=== PATIENT | female | born 1975 | race Caucasian/White ===

== ENCOUNTER → 2016-07-16 | Outpatient (CLI) | payer MEDICARE, OTHER ==
--- NOTE | 2016-07-16 10:40 | CT ---
EXAMINATION TYPE: CT sinus wo con DATE OF EXAM: 07/16/2016 10:29 AM COMPARISON: NONE HISTORY: Chronic sinusitis per order. Symptoms of headaches with right-sided facial numbness and dizz iness per patient. CT DLP: 714.4 mGycm. Automated Exposure Control for Dose Reduction was Utilized. TECHNIQUE: CT scan of the sinuses is performed without contrast, axial images are obtained, coronal r eformatted images are also reviewed. FINDINGS: Near complete opacification of right maxillary sinus is seen with frothy opacity superiorly noted. More suspicious masslike appearance inferiorly and medially is seen with some erosive change involving the inferior wall into the maxilla identified on coronal image 32. Lack of dentition of rig ht molar teeth at this level is identified. There is bulging into the right ostiomeatal complex noted . Hounsfield units average between 20 and 30 as area is fairly homogeneous. The left maxillary, bilat eral frontal, and bilateral sphenoid sinuses show no suspicious opacification. Mild to minimal mucosa l thickening posterior left ethmoid sinus on axial image 28 is noted. Left-sided ostiomeatal complex is patent. Please refer to same day CT IAC report for complete details of more posterior structures. Visualized globes are intact bilaterally. Early Hyperostosis frontalis is seen. IMPRESSION: Right maxillary sinus disease with erosive change or bony destruction into right maxilla cannot rule out infectious process or neoplasm at this level. Further workup with direct visualizati on advised.
--- NOTE | 2016-07-16 10:53 | CT ---
EXAMINATION TYPE: CT iac wo con DATE OF EXAM: 07/16/2016 10:28 AM COMPARISON: NONE HISTORY: Rt hearing loss, mastoiditis, and cholesteatoma per order. Additional symptoms of headache, fainting spells, right-sided facial numbness, and dizziness per patient. CT DLP: 150 mGycm. Automated Exposure Control for Dose Reduction was Utilized. TECHNIQUE: CT scan of internal auditory canal is performed without contrast, thin cut axial images ar e obtained, coronal reformatted images are also reviewed. FINDINGS: The external auditory canals are patent bilaterally. There is prominent curvilinear opacifi cation at level of the tympanic membrane likely reflecting cerumen, correlation with direct visualiz ation is advised. Mastoid air cells show opacification seen diffusely but most prominent inferiorly. No suspicious opa cification on the left is present. There is no evidence of suspicious surrounding soft tissue density to suggest cholesteatoma. The scu glenys is preserved bilaterally. The cochlea and the semicircular canals are symmetric and unremarkable. Vestibular aqueduct and inte rnal carotid canal appear unremarkable. Temporomandibular joints show some flattening of mandibular condyle bilaterally, left greater than ri ght. Visualized portion brain parenchyma is felt within normal limits. Please see same day CT sinus report for complete details on paranasal sinuses. IMPRESSION: Right-sided mastoiditis and probable cerumen, no middle ear infection or CT evidence for cholesteatoma.
== END | disposition home or self-care (01) ==
LOC: RADCTMAIN 09:48
PROVIDERS: ATTEND Otolaryngology
DX: J32.0 Chronic maxillary sinusitis (principal); H70.91 Unspecified mastoiditis, right ear; H91.91 Unspecified hearing loss, right ear
CPT/HCPCS: 70480; 70486

== ENCOUNTER 2016-08-23 06:49 | Day surgery (SDC) | payer MEDICARE, OTHER ==
[2016-08-20 11:57] VITALS: BMI 32.0
[~2016-08-23 06:49] MED LIST: ACETAMINOPHEN TAB 500 MG TAB PO ONE; DEXAMETHASONE SOD PHOSPHATE 10 MG/ML 1 ML VIAL IV ONE; DEXAMETHASONE SOD PHOSPHATE 4 MG/ML 1 ML VIAL IV ONE; FAMOTIDINE 20 MG/2 ML VIAL IV ONE; HYDROmorphone 1 MG/ML 1 ML SYRINGE IVP PRN; LACTATED RINGERS 1,000 ML IV SCH; ONDANSETRON 4 MG/2 ML VIAL IVP ONE; OXYMETAZOLINE 0.05% NASL SPRAY 15 ML ONE; ceFAZolin 2 GM in SODIUM CHLORIDE 0.9% 100 ML IVPB ONE
[2016-08-23 07:28] VITALS: TEMP 97.8
[2016-08-23] MEDS ORDERED: OXYMETAZOLINE 0.05% NASL SPRAY 15 ML NASAL ONE ×4 (07:30→07:40)
[2016-08-23 07:38] LABS: Glucose,Whole Blood 91 mg/dL (75-99)
[2016-08-23] MEDS ORDERED: LIDOCAINE 1% 20 ML VIAL (10MG/ML) FOR IV START SQ ONE (07:38)
[2016-08-23] MEDS ORDERED: fentaNYL (PF) 50 MCG/ML 2 ML AMP ONE (08:58)
[2016-08-23] MEDS ORDERED: SUCCINYLCHOLINE CHLORIDE 100 MG/5 ML SYR IV ONE (08:58)
[2016-08-23] MEDS ORDERED: LIDOCAINE 1% INJ 10MG/ML (20 ML MDV) ONE (08:58)
[2016-08-23] MEDS ORDERED: PROPOFOL 10 MG/ML 20 ML VIAL IV ONE (08:58)
[2016-08-23] MEDS ORDERED: DEXAMETHASONE SOD PHOS (MDV) 100 MG/10 ML VIAL ONE (08:58)
[2016-08-23] MEDS ORDERED: MIDAZOLAM 2 MG/2 ML VIAL ONE (08:58)
[2016-08-23] MEDS ORDERED: CIPROFLOXACIN-DEXAMETH 0.3-0.1% DROPS 7.5 ML BTL RIGHT EAR ONE (09:25)
[2016-08-23] MEDS ORDERED: LIDOCAINE 1%-EPI 1:100,000 20 ML VIAL SUBMUCOSAL ONE ×2 (09:31)
[2016-08-23] MEDS ORDERED: FLUORESCEIN STRIPS 1 MG STRIP MISCELLANE ONE (09:32)
[2016-08-23] MEDS ORDERED: BUPIVACAIN-EPI 0.5%-1:200,000 30 ML VIAL SQ ONE ×2 (09:32)
[2016-08-23] MEDS ORDERED: EPINEPHrine 1 MG/ML (MDV) 30 ML VIAL TOPICAL ONE (09:32)
[2016-08-23] MEDS ORDERED: BACITRACIN 500 UNIT/GM OINT 28.4 GM TUBE TOPICAL ONE (10:03)
--- NOTE | 2016-08-23 10:32 | P.OP ---
Date of Procedure: 08/23/16 Preoperative Diagnosis: Deviated nasal septum Hypertrophy of the nasal turbinates, inferior, bilaterally Chronic sinusitis with a right maxillary and intranasal mass with eustachian tube dysfunction Chronic suppurative otitis media right ear Right tympanogram and perforation, spontaneous Postoperative Diagnosis: same Procedure(s) Performed: Bilateral functional endoscopic sinus surgery of bilateral maxillary and ethmoid sinuses i.e. a total ethmoidectomy with removal of a right maxillary sinus and intranasal mass with frozen section Right direct microscopic tympanostomy tube placement Right myringoplasty utilizing a bio design graft Implants: Anesthesia: GETA Surgeon: Mansoor Gil Estimated Blood Loss (ml): 5 Pathology: other (Sinonasal and frozen section was performed on a polypoid mass intranasally on the right side) Condition: stable Disposition: PACU Indications for Procedure: This patient is a 40-year-old white female who has had chronic sinus problems bilaterally for very long period of time she complains of bilateral nasal congestion discolored drainage anosmia etc. her right side seems to be much worse. We did a CAT scan showing a mass of the right maxillary sinus and intranasally noted with bony erosion. The patient also had a chronic separate of otitis media on the right with chronic infection and mastoid involvement. Tympanostomy tube placement along with functional endoscopic sinus surgery is recommended the patient was also found have a severe left septal deviation with near 100% occlusion. The patient also had large inferior turbinates there were obstructive. All risks, benefits, and alternative therapies were discussed in detail. Consent was obtained and all questions were answered. Operative Findings: Patient was found to have a very thickened right tympanic membrane. There was erosion through the posterior portion of the tympanic membrane with a spontaneous perforation seen in yellow purulence draining from that area. Patient also had chronic sinusitis bilaterally with inflammatory changes along the ostomy complexes on the left and right. On the right there was a large mass from the maxillary sinus eroding through the maxillary sinus wall intranasally. The mass on the right side was impinging on the right eustachian tube precipitating the eustachian tube dysfunction causing the ear disease. Description of Procedure: This patient was taken to the operative room and placed in the supine position. A general inhalation anesthetic was administered to the patient by mask and subsequently intubated with a cuffed endotracheal tube by the department of anesthesia. The patient had a functioning IV line in place. Attention was paid to the right ear where the ear was visualized with a variable focal length Zeiss microscope. We suctioned the purulence from the right ear canal and examine the right ear under magnification. There was a spontaneous perforation noted posteriorly. The drum was thickened and extremely erythematous. A tympanostomy incision was made inferiorly and an ultraseal tube was placed and the purulence was suctioned. The perforation was prepped with a house pick the edges were roughened and a bio design graft was placed over the perforation. Myringoplasty was completed and a right tube was placed. Ofloxacin drops were instilled. Cottonball was placed on the outer ear canal. Attention was then paid to the nose where the septum lateral nasal wall sphenopalatine teen ganglion were injected with lidocaine 1% with epinephrine 1 100,000. Approximately 10 minutes were allowed wait for full vasoconstrictive effects to take place. A caudal incision was made over the caudal portion of the left septum down to the mucoperichondrium. A mucoperichondrial flap was developed to the extent of visualization on the left and a crossover incision was made with for the mucoperichondrial flap development to the extent of visualization on the contralateral side. The septum was visualized and redundant septum was removed. With a trapdoor type of movement the septum was straightened and placed back in the midline. We removed a large amount of redundant cartilage causing a large septal spur along the floor on the left side. We suture fixated the septum to the vomerian groove and placed it back in the midline. The incision was closed with 4-0 Vicryl in a running stitch was used to reapproximate the septal flaps with use of a 40 rapid Vicryl. The patient was found have large obstructive inferior turbinates. We entered the anterior portion of the inferior turbinates with use of a microdebrider utilizing a 2 mm blade. We did a submucosal resection removing bone and submucosal elements from the inferior turbinates bilaterally. Once this submucosal resection was performed we took a Kerlinkes nasal elevator and outfractured the inferior turbinates bilaterally. Excellent airway was obtained. Attention was then paid intranasally to the nose was a polypoid-type mass noted on the right side which was removed and sent for frozen section. The sinus surgery was performed with use of 0 and 30 H[employer] endoscopes. This came back as inflammatory respiratory tissue representing a polyp. Once we confirmed that this mass was benign we evaluated both ostomy complexes and found inflammatory changes on both with discolored drainage on both. We took down the uncinate process bilaterally and opened up both maxillary sinuses. We remove diseased tissue from both maxillary sinuses. The right maxillary sinus had a large inflammatory polyp-type cyst removed and the sinus diseased tissue was removed bilaterally from both maxillary sinuses. We then evaluated the ethmoids and the ethmoid bulla was were inflamed. We then did a total ethmoidectomy removing all the ethmoid septations from the fovea frontalis through the basal lamella into the posterior ethmoid air cells. After a total ethmoidectomy was performed with removal of all septations we evaluated the sphenoid and frontal sinus region and did not find any pathology in that area and we did not proceed further with any frontal or sphenoid work. We did insert xerogel underneath the middle turbinates and we did insert to a centimeter Merocel sponge packs which are to be removed tomorrow by the patient by pulling on the string. Instructions on removal will be given in recovery. The patient tolerated this procedure well and a follow-up is scheduled for next week. The patient is to contact me if any problems should arise in the interim.
[2016-08-23 11:13] LABS: Glucose,Whole Blood 129 mg/dL (75-99)
[2016-08-23 11:42] VITALS: RESP 18
[2016-08-23] MEDS ORDERED: HYDROcodone/APAP 5-325MG 1 EACH TAB PO ONE (12:01)
[2016-08-23 12:25] VITALS: BP 126/73; PULSE 84
== END 2016-08-23 12:44 | disposition home or self-care (01) ==
LOC: OR 06:49
PROVIDERS: ATTEND Otolaryngology
DX: J34.2 Deviated nasal septum (principal); J34.3 Hypertrophy of nasal turbinates; H72.91 Unspecified perforation of tympanic membrane, right ear; J32.9 Chronic sinusitis, unspecified; J34.9 Unspecified disorder of nose and nasal sinuses; H69.81 Other specified disorders of Eustachian tube, right ear; H66.3X1 Other chronic suppurative otitis media, right ear; I10 Essential (primary) hypertension; J45.909 Unspecified asthma, uncomplicated; F32.9 Major depressive disorder, single episode, unspecified; Z79.1 Long term (current) use of non-steroidal anti-inflammatories (NSAID); Z79.891 Long term (current) use of opiate analgesic; Z79.52 Long term (current) use of systemic steroids; Z79.899 Other long term (current) drug therapy; Z88.8 Allergy status to other drugs, medicaments and biological substances; Z91.09 Other allergy status, other than to drugs and biological substances
CPT/HCPCS: 88305; 88331; 88300; 69436; 30520; 30140; 31267; 31255; C1763; J0171; J2250; J1100 ×2; J0690; J2405; J2001; J3010; J0330; J2704

== ENCOUNTER → 2016-08-30 | Outpatient (CLI) | payer MEDICARE, OTHER ==
--- NOTE | 2016-08-31 00:09 | MR ---
EXAMINATION TYPE: MR lumbar spine wo con DATE OF EXAM: 08/30/2016 COMPARISON: NONE HISTORY: Low Back Pain TECHNIQUE: Multiplanar, multisequence images of the lumbar spine were acquired. There is almost 1 cm anterior subluxation of L4 in relation to L5. There is bilateral L4 spondylolysi s. There is narrowing at L4-5 disc space. The other disc spaces are fairly normal. There is increased signal in the T12 vertebral body on the left side consistent with hemangioma. There is no paraspinal mass. There is no spinal stenosis. There is developmentally adequate spinal canal. Sacroiliac joints appear normal. 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 No spinal stenosis. No lumbar disc yael iation.
== END | disposition home or self-care (01) ==
LOC: RADMRIMAIN 15:58
PROVIDERS: ATTEND Psychiatry & Neurology Neurology
DX: M43.16 Spondylolisthesis, lumbar region (principal); M47.816 Spondylosis without myelopathy or radiculopathy, lumbar region; Z88.8 Allergy status to other drugs, medicaments and biological substances
CPT/HCPCS: 72148

== ENCOUNTER 2017-07-31 10:12 | Emergency (ER) | payer MEDICARE, OTHER ==
[2017-07-31] MEDS ORDERED: diphenhydrAMINE 50 MG/ML 1 ML VIAL IVP STA (10:36)
[2017-07-31] MEDS ORDERED: methylPREDNISolone SOD SUCCI 125 MG/2 ML VIAL IV STA (10:36)
[2017-07-31] MEDS ORDERED: SODIUM CHLORIDE 0.9% 500 ML IV ONE (10:36)
--- NOTE | 2017-07-31 10:40 | ED ---
General Adult HPI - General Chief complaint: Recheck/Abnormal Lab/Rx Stated complaint: allergic rxn, EPS eval Time Seen by Provider: 07/31/17 10:30 Source: patient, RN notes reviewed Mode of arrival: ambulatory - History of Present Illness Initial comments: This is a 41-year-old female who states she had 2 of her medications increased and since then she has had terrible itching all over. Patient states she had no difficulty breathing or throat swelling. Patient states her legs arms chest back and face are itching and she can't stop scratching it. Patient states this happened before when her medications were increased. Patient is not taking any medications at this time for the itching. Patient denies any fever chills or cough. Patient denies headache patient denies numbness weakness. Patient denies chest pain palpitations difficulty breathing or shortness of breath. Patient denies any abdominal pain. - Related Data Home Medications Medication Instructions Recorded Confirmed lamoTRIgine [LaMICtal] 200 mg PO HS 07/31/17 07/31/17 traZODone HCL [Desyrel] 200 mg PO HS 07/31/17 07/31/17 Allergies Allergy/AdvReac Type Severity Reaction Status Date / Time aripiprazole [From Abilify] Allergy Swelling Verified 07/31/17 10:38 paroxetine HCl [From Paxil] Allergy Rash/Hives Verified 07/31/17 10:38 ziprasidone [From Geodon] Allergy Swelling Verified 07/31/17 10:38 Review of Systems ROS Statement: Those systems with pertinent positive or pertinent negative responses have been documented in the HPI. ROS Other: All systems not noted in ROS Statement are negative. Past Medical History Past Medical History: Asthma, Diabetes Mellitus, Deep Vein Thrombosis (DVT), GERD/Reflux, Hearing Disorder / Deafness, Hyperlipidemia, Hypertension, Osteoarthritis (OA), Seizure Disorder, Sleep Apnea/CPAP/BIPAP Additional Past Medical History / Comment(s): SEIZURES CHILD, NONE SINCE AGE 15. NO TX FOR DM IN PAST 2-3 YEARS, SINCE WGT LOSS. BORDERLINE HTN, NO RX YET. HX LT ARM DVT X2, WAS ON BCP. "SEEM TO BLEED LONGER NOW." CTS IN MAGDA HANDS, WRISTS; TENDINITIS ARMS/LEGS; NT ARMS/LEGS. DECR HEARING RT EAR. USES CPAP. History of Any Multi-Drug Resistant Organisms: None Reported Past Surgical History: Bladder Surgery, Ear Surgery, Hysterectomy, Orthopedic Surgery Additional Past Surgical History / Comment(s): RT KNEE SURG. BLADDER SLING. BMT. CLEFT PALATE SURGERY. BB REMOVED FROM HEAD. Past Anesthesia/Blood Transfusion Reactions: Family History of Problems w/ Anesthesia, Motion Sickness Additional Past Anesthesia/Blood Transfusion Reaction / Comment(s): SISTERS HAVE PONV. Past Psychological History: Anxiety, Bipolar Smoking Status: Never smoker Past Alcohol Use History: None Reported Past Drug Use History: None Reported - Past Family History Mother Family Medical History: Cancer, Deep Vein Thrombosis (DVT), Pulmonary Embolus Father Family Medical History: Deep Vein Thrombosis (DVT), Pulmonary Embolus Additional Family Medical History / Comment(s): RONNIE GERIGHS DISEASE. General Exam - General Exam Comments Initial Comments: GENERAL: Patient is well-developed and well-nourished. Patient is nontoxic and well- hydrated and is in moderate distress. ENT: Neck is soft and supple. No significant lymphadenopathy is noted. Oropharynx is clear. Moist mucous membranes. Neck has full range of motion without eliciting any pain. EYES: The sclera were anicteric and conjunctiva were pink and moist. Extraocular movements were intact and pupils were equal round and reactive to light. Eyelids were unremarkable. PULMONARY: Unlabored respirations. Good breath sounds bilaterally. No audible rales rhonchi or wheezing was noted. CARDIOVASCULAR: There is a regular rate and rhythm without any murmurs gallops or rubs. ABDOMEN: Soft and nontender with normal bowel sounds. No palpable organomegaly was noted. There is no palpable pulsatile mass. SKIN: Skin is clear with no lesions or rashes and otherwise unremarkable. I see no signs of an a rash consistent with ALLERGIC reaction but the patient cannot stop itching. NEUROLOGIC: Patient is alert and oriented x3. Cranial nerves II through XII are grossly intact. Motor and sensory are also intact. Normal speech, volume and content. Symmetrical smile. MUSCULOSKELETAL: Normal extremities with adequate strength and full range of motion. No lower extremity swelling or edema. No calf tenderness. LYMPHATICS: No significant lymphadenopathy is noted PSYCHIATRIC: Normal psychiatric evaluation. Course Vital Signs 07/31/17 10:30 Temperature 98.3 F Pulse Rate 97 Respiratory 18 Rate Blood Pressure 171/91 O2 Sat by Pulse 99 Oximetry Medical Decision Making - Medical Decision Making Patient received Solu-Medrol and Benadryl. I will begin the room to reevaluate her she was no longer itching felt comfortable and wanted to be discharged home. Disposition Clinical Impression: Adverse drug effect Disposition: HOME SELF-CARE Condition: Good Instructions: Adverse Drug Reaction (ED) Additional Instructions: Patient should not take the medications that were increase until she talks to her primary medical care doctor. Is patient prescribed a controlled substance at d/c from ED?: No Referrals: Janak Andrade MD [Primary Care Provider] - 1-2 days Time of Disposition: 11:51
[2017-07-31 11:56] VITALS: BP 151/97; PULSE 89; RESP 16; TEMP 98.4
== END 2017-07-31 11:59 | disposition home or self-care (01) ==
LOC: EC 10:12
DX: L29.9 Pruritus, unspecified (principal); T50.905A Adverse effect of unspecified drugs, medicaments and biological substances, initial encounter; G40.909 Epilepsy, unspecified, not intractable, without status epilepticus; F31.9 Bipolar disorder, unspecified; F41.9 Anxiety disorder, unspecified; Z88.8 Allergy status to other drugs, medicaments and biological substances; Z79.899 Other long term (current) drug therapy
CPT/HCPCS: 99283; 96374; 96375; J1200; J2930

== ENCOUNTER 2018-10-08 11:13 | Emergency (ER) | payer MEDICARE, OTHER ==
[2018-10-08 11:18] VITALS: RESP 18; TEMP 97.8
[2018-10-08] MEDS ORDERED: ACETAMINOPHEN TAB 500 MG TAB PO STA (12:29)
[2018-10-08] MEDS ORDERED: IBUPROFEN 800 MG TAB PO STA (12:29)
[2018-10-08] MEDS ORDERED: PROCHLORPERAZINE 5 MG TAB PO STA (12:29)
--- NOTE | 2018-10-08 12:49 | ED ---
Recheck HPI - General Chief Complaint: Recheck/Abnormal Lab/Rx Stated Complaint: High BP/headache Time Seen by Provider: 10/08/18 11:26 Source: patient, RN notes reviewed, old records reviewed Mode of arrival: ambulatory - History of Present Illness Initial Comments: This is a 43-year-old female the ER for evaluation. Patient resents today for evaluation multiple complaints, patient states she's having difficulty with her mental health, not homicidal or suicidal no drugs or alcohol. Patient also noted to have high blood pressure issues try to take care some cavities of the [place]. Patient does take blood pressure medication today, permanent medication and medication improvement. Patient occasional headaches headaches or normal issue for her. Patient denies any headache chest pain shortness of breath or abdominal pain currently. MD Complaint: other (Increased blood pressure) -: unknown Symptoms Since Prior Visit: no new symptoms Context: called for abnormal lab result (This is sent to ER for evaluation secondary to elevated blood pressure) Associated Symptoms: none Treatments Prior to Arrival: other medications - Related Data Home Medications Medication Instructions Recorded Confirmed Albuterol Inhaler [Ventolin Hfa 2 puff INHALATION RT-Q6H PRN 10/08/18 10/08/18 Inhaler] Albuterol Nebulized [Ventolin 2.5 mg INHALATION RT-Q6H PRN 10/08/18 10/08/18 Nebulized] Valsartan [Diovan] 80 mg PO DAILY 10/08/18 10/08/18 Allergies Allergy/AdvReac Type Severity Reaction Status Date / Time aripiprazole [From Abilify] Allergy Swelling Verified 10/08/18 12:36 paroxetine HCl [From Paxil] Allergy Rash/Hives Verified 10/08/18 12:36 ziprasidone [From Geodon] Allergy Swelling Verified 10/08/18 12:36 Review of Systems ROS Statement: Those systems with pertinent positive or pertinent negative responses have been documented in the HPI. ROS Other: All systems not noted in ROS Statement are negative. Past Medical History Past Medical History: Asthma, Diabetes Mellitus, Deep Vein Thrombosis (DVT), GERD/Reflux, Hearing Disorder / Deafness, Hyperlipidemia, Hypertension, Osteoarthritis (OA), Seizure Disorder, Sleep Apnea/CPAP/BIPAP Additional Past Medical History / Comment(s): SEIZURES CHILD, NONE SINCE AGE 15. NO TX FOR DM IN PAST 2-3 YEARS, SINCE WGT LOSS. BORDERLINE HTN, NO RX YET. HX LT ARM DVT X2, WAS ON BCP. "SEEM TO BLEED LONGER NOW." CTS IN MAGDA HANDS, WRISTS; TENDINITIS ARMS/LEGS; NT ARMS/LEGS. DECR HEARING RT EAR. USES CPAP. History of Any Multi-Drug Resistant Organisms: None Reported Past Surgical History: Bladder Surgery, Ear Surgery, Hysterectomy, Orthopedic Surgery Additional Past Surgical History / Comment(s): RT KNEE SURG. BLADDER SLING. BMT. CLEFT PALATE SURGERY. BB REMOVED FROM HEAD. Past Anesthesia/Blood Transfusion Reactions: Family History of Problems w/ Anesthesia, Motion Sickness Additional Past Anesthesia/Blood Transfusion Reaction / Comment(s): SISTERS HAVE PONV. Past Psychological History: Anxiety, Bipolar Smoking Status: Never smoker Past Alcohol Use History: None Reported Past Drug Use History: None Reported - Past Family History Mother Family Medical History: Cancer, Deep Vein Thrombosis (DVT), Pulmonary Embolus Father Family Medical History: Deep Vein Thrombosis (DVT), Pulmonary Embolus Additional Family Medical History / Comment(s): RONNIE GERIGHS DISEASE. General Exam General appearance: alert, in no apparent distress Head exam: Present: atraumatic, normocephalic, normal inspection Eye exam: Present: normal appearance, PERRL, EOMI. Absent: scleral icterus, conjunctival injection, periorbital swelling ENT exam: Present: normal exam, mucous membranes moist Neck exam: Present: normal inspection. Absent: tenderness, meningismus, lymphadenopathy Respiratory exam: Present: normal lung sounds bilaterally. Absent: respiratory distress, wheezes, rales, rhonchi, stridor Cardiovascular Exam: Present: regular rate, normal rhythm, normal heart sounds. Absent: systolic murmur, diastolic murmur, rubs, gallop, clicks GI/Abdominal exam: Present: soft, normal bowel sounds. Absent: distended, tenderness, guarding, rebound, rigid Extremities exam: Present: normal inspection, full ROM, normal capillary refill. Absent: tenderness, pedal edema, joint swelling, calf tenderness Back exam: Present: normal inspection Neurological exam: Present: alert, oriented X3, CN II-XII intact Psychiatric exam: Present: normal affect, normal mood Skin exam: Present: warm, dry, intact, normal color. Absent: rash Course Vital Signs 10/08/18 10/08/18 10/08/18 11:16 12:01 12:30 Temperature 97.8 F Pulse Rate 75 75 90 Respiratory 18 Rate Blood Pressure 153/94 148/95 O2 Sat by Pulse 99 98 Oximetry 10/08/18 10/08/18 10/08/18 13:00 13:30 14:00 Temperature Pulse Rate 85 86 Respiratory Rate Blood Pressure 147/92 152/93 152/93 O2 Sat by Pulse 97 Oximetry 10/08/18 14:16 Temperature 97.8 F Pulse Rate 86 Respiratory 18 Rate Blood Pressure 152/93 O2 Sat by Pulse 97 Oximetry Medical Decision Making - Medical Decision Making 43 female the ER for evaluation blood pressures improved seen by mental health and deemed stable for discharge home. Patient is agreeable plan and can be dis charged, headache improved Disposition Clinical Impression: Headache, Mental health problem, Hypertension Disposition: HOME SELF-CARE Condition: Good Instructions (If sedation given, give patient instructions): Hypertension (ED) Is patient prescribed a controlled substance at d/c from ED?: No Referrals: Darrel Patel DO [Primary Care Provider] - 1-2 days
[2018-10-08 14:03] VITALS: BP 152/93; PULSE 86
== END 2018-10-08 14:16 | disposition home or self-care (01) ==
LOC: EC 11:13
DX: I10 Essential (primary) hypertension (principal); R51 Headache; F99 Mental disorder, not otherwise specified; J45.909 Unspecified asthma, uncomplicated; G47.30 Sleep apnea, unspecified; H91.90 Unspecified hearing loss, unspecified ear; Z79.51 Long term (current) use of inhaled steroids; Z79.899 Other long term (current) drug therapy; Z88.8 Allergy status to other drugs, medicaments and biological substances; Z99.89 Dependence on other enabling machines and devices; Z86.718 Personal history of other venous thrombosis and embolism
CPT/HCPCS: 82075; 99284; S0183

== ENCOUNTER 2018-11-08 15:15 | Emergency (ER) | payer MEDICARE ==
[2018-11-08 15:20] VITALS: TEMP 98.1
[2018-11-08] MEDS ORDERED: KETOROLAC 60 MG/2 ML VIAL IVP STA (15:38)
[2018-11-08] MEDS ORDERED: DIAZEPAM 5 MG/ML 2 ML INJ IVP STA (15:39)
--- NOTE | 2018-11-08 15:44 | ED ---
General Adult HPI - General Source: patient, RN notes reviewed Mode of arrival: wheelchair Limitations: no limitations <Sylvester Vieira - Last Filed: 11/08/18 17:03> <Janak Villalobos - Last Filed: 11/08/18 17:41> - General Chief complaint: Chest Pain Stated complaint: Chest pain Time Seen by Provider: 11/08/18 15:20 - History of Present Illness Initial comments: This is a 43-year-old female who presents emergency Department complaining of left arm spasming that is going up into her shoulder and occasionally having a little bit of spasm in her left chest area. Patient states she started new medication for her bipolar it's called Vrayar 2 weeks ago and states ever since then she's been having some twitching and agitation. Patient denies any anterior chest pain. Patient denies any shortness of breath per patient denies any diaphoretic episodes. Patient denies nausea vomiting diarrhea. Patient states the pain is sharp and only last 3-5 seconds. Patient states it feels just like a spasm and then goes away. Patient states grabbing the area that spasming makes the symptoms go away as well. Patient states exertion does not make the symptoms occur. Patient denies any recent fever chills or cough. Patient denies lightheadedness dizziness or near syncopal episode. Patient denies any palpitations. Patient denies any abdominal pain. (Sylvseter Vieira) - Related Data Home Medications Medication Instructions Recorded Confirmed Valsartan [Diovan] 80 mg PO DAILY 10/08/18 11/08/18 Butalb/APAP/Caff 50-325-40Mg 1 tab PO Q8H PRN 11/08/18 11/08/18 [Fioricet 50-325-40] Cariprazine HCl [Vraylar] 1.5 mg PO DAILY 11/08/18 11/08/18 Ibuprofen [Motrin Ib] 200 mg PO Q46H PRN 11/08/18 11/08/18 Lisinopril 20 mg PO DAILY 11/08/18 11/08/18 OXcarbazepine [Trileptal] 150 mg PO BID 11/08/18 11/08/18 Prednisolone Acetate/Pf 3 drop RIGHT EAR BID 11/08/18 11/08/18 [Prednisolone Acet 1% Eye Drop] diphenhydrAMINE HCL [Benadryl] 25 mg PO DAILY PRN 11/08/18 11/08/18 Allergies Allergy/AdvReac Type Severity Reaction Status Date / Time aripiprazole [From Abilify] Allergy Swelling Verified 10/08/18 12:36 paroxetine HCl [From Paxil] Allergy Rash/Hives Verified 10/08/18 12:36 trazodone Allergy Unknown Verified 11/08/18 16:25 ziprasidone [From Geodon] Allergy Swelling Verified 10/08/18 12:36 Review of Systems ROS Other: All systems not noted in ROS Statement are negative. <Sylvester Vieira - Last Filed: 11/08/18 17:03> ROS Other: All systems not noted in ROS Statement are negative. <Janak Villalobos - Last Filed: 11/08/18 17:41> ROS Statement: Those systems with pertinent positive or pertinent negative responses have been documented in the HPI. Past Medical History Past Medical History: Asthma, Diabetes Mellitus, Deep Vein Thrombosis (DVT), GERD/Reflux, Hearing Disorder / Deafness, Hyperlipidemia, Hypertension, Osteoarthritis (OA), Seizure Disorder, Sleep Apnea/CPAP/BIPAP Additional Past Medical History / Comment(s): SEIZURES CHILD, NONE SINCE AGE 15. NO TX FOR DM IN PAST 2-3 YEARS, SINCE WGT LOSS. BORDERLINE HTN, NO RX YET. HX LT ARM DVT X2, WAS ON BCP. "SEEM TO BLEED LONGER NOW." CTS IN MAGDA HANDS, WRISTS; TENDINITIS ARMS/LEGS; NT ARMS/LEGS. DECR HEARING RT EAR. USES CPAP. History of Any Multi-Drug Resistant Organisms: None Reported Past Surgical History: Bladder Surgery, Ear Surgery, Hysterectomy, Orthopedic Surgery Additional Past Surgical History / Comment(s): RT KNEE SURG. BLADDER SLING. BMT. CLEFT PALATE SURGERY. BB REMOVED FROM HEAD. Past Anesthesia/Blood Transfusion Reactions: Family History of Problems w/ Anesthesia, Motion Sickness Additional Past Anesthesia/Blood Transfusion Reaction / Comment(s): SISTERS HAVE PONV. Past Psychological History: Anxiety, Bipolar Smoking Status: Never smoker Past Alcohol Use History: None Reported Past Drug Use History: None Reported - Past Family History Mother Family Medical History: Cancer, Deep Vein Thrombosis (DVT), Pulmonary Embolus Father Family Medical History: Deep Vein Thrombosis (DVT), Pulmonary Embolus Additional Family Medical History / Comment(s): RONNIE GERIGHS DISEASE. <Sylvester Vieira - Last Filed: 11/08/18 17:03> General Exam Limitations: no limitations <Sylvester Vieira - Last Filed: 11/08/18 17:03> - General Exam Comments Initial Comments: GENERAL: Patient is well-developed and well-nourished. Patient is nontoxic and well-hydr ated and is in mild distress. ENT: Neck is soft and supple. No significant lymphadenopathy is noted. Oropharynx is clear. Moist mucous membranes. Neck has full range of motion without eliciting any pain. EYES: The sclera were anicteric and conjunctiva were pink and moist. Extraocular movements were intact and pupils were equal round and reactive to light. Eyelids were unremarkable. PULMONARY: Unlabored respirations. Good breath sounds bilaterally. No audible rales rhonchi or wheezing was noted. CARDIOVASCULAR: There is a regular rate and rhythm without any murmurs gallops or rubs. ABDOMEN: Soft and nontender with normal bowel sounds. SKIN: Skin is clear with no lesions or rashes and otherwise unremarkable. NEUROLOGIC: Patient is alert and oriented x3. Cranial nerves II through XII are grossly intact. Motor and sensory are also intact. Normal speech, volume and content. Symmetrical smile. MUSCULOSKELETAL: Normal extremities with adequate strength and full range of motion. LYMPHATICS: No significant lymphadenopathy is noted PSYCHIATRIC: Normal psychiatric evaluation. (Sylvester Vieira) Course <Janak Villalobos - Last Filed: 11/08/18 17:41> Vital Signs 11/08/18 11/08/18 15:18 15:25 Temperature 98.1 F Pulse Rate 102 H Pulse Rate [ 106 H [employer]person [employer] ] Respiratory 18 Rate Blood Pressure 123/86 O2 Sat by Pulse 98 Oximetry - Reevaluation(s) Reevaluation #1: 11/08/18 17:39 The patient was endorsed me by Dr. Vieira at our shift change. We were awaiting the troponin result which is within normal limits. The patient will be discharged she is feeling much improved at this time. (Janak Villalobos) Medical Decision Making - Lab Data Result diagrams: 11/08/18 15:30 11/08/18 15:30 <Sylvester Vieira - Last Filed: 11/08/18 17:03> - Lab Data Result diagrams: 11/08/18 15:30 11/08/18 15:30 <Janak Villalobos - Last Filed: 11/08/18 17:41> - Medical Decision Making I witnessed the patient having some spasms in the arm and her arm did twitch like a spasm and then subsided and about 5 seconds. EKG shows sinus tachycardia at 100 and beats per minute SC interval 1:30 QRS is 70 QT interval 350 QTC is 471 per patient's EKG shows no ST segment elevation or depression or T wave abnormalities are noted. I went back into reevaluate the patient and she was asymptomatic after she re ceived the Toradol and Valium. Dr. Villalobos will be taking over the care of this patient at 5 PM (Sylvester Vieira) - Lab Data Lab Results 11/08/18 11/08/18 11/08/18 Range/Units 15:30 15:30 15:30 WBC 6.8 (3.8-10.6) k/uL RBC 4.25 (3.80-5.40) m/uL Hgb 12.9 (11.4-16.0) gm/dL Hct 38.6 (34.0-46.0) % MCV 90.9 (80.0-100.0) fL MCH 30.4 (25.0-35.0) pg MCHC 33.5 (31.0-37.0) g/dL RDW 16.0 H (11.5-15.5) % Plt Count 181 (150-450) k/uL Neutrophils % 72 % Lymphocytes % 18 % Monocytes % 7 % Eosinophils % 1 % Basophils % 1 % Neutrophils # 4.9 (1.3-7.7) k/uL Lymphocytes # 1.2 (1.0-4.8) k/uL Monocytes # 0.5 (0-1.0) k/uL Eosinophils # 0.1 (0-0.7) k/uL Basophils # 0.0 (0-0.2) k/uL PT 9.4 (9.0-12.0) sec INR 0.9 (<1.2) APTT 20.9 L (22.0-30.0) sec Sodium 140 (137-145) mmol/L Potassium 3.5 (3.5-5.1) mmol/L Chloride 106 (98-107) mmol/L Carbon Dioxide 27 (22-30) mmol/L Anion Gap 7 mmol/L BUN 19 H (7-17) mg/dL Creatinine 0.87 (0.52-1.04) mg/dL Est GFR (CKD-EPI)AfAm >90 (>60 ml/min/1.73 sqM) Est GFR (CKD-EPI)NonAf 82 (>60 ml/min/1.73 sqM) Glucose 115 H (74-99) mg/dL Calcium 9.2 (8.4-10.2) mg/dL Magnesium 1.9 (1.6-2.3) mg/dL Total Bilirubin 0.3 (0.2-1.3) mg/dL AST 29 (14-36) U/L ALT 36 (9-52) U/L Alkaline Phosphatase 70 (38-126) U/L Troponin I (0.000-0.034) ng/mL Total Protein 6.9 (6.3-8.2) g/dL Albumin 4.1 (3.5-5.0) g/dL 11/08/18 Range/Units 15:30 WBC (3.8-10.6) k/uL RBC (3.80-5.40) m/uL Hgb (11.4-16.0) gm/dL Hct (34.0-46.0) % MCV (80.0-100.0) fL MCH (25.0-35.0) pg MCHC (31.0-37.0) g/dL RDW (11.5-15.5) % Plt Count (150-450) k/uL Neutrophils % % Lymphocytes % % Monocytes % % Eosinophils % % Basophils % % Neutrophils # (1.3-7.7) k/uL Lymphocytes # (1.0-4.8) k/uL Monocytes # (0-1.0) k/uL Eosinophils # (0-0.7) k/uL Basophils # (0-0.2) k/uL PT (9.0-12.0) sec INR (<1.2) APTT (22.0-30.0) sec Sodium (137-145) mmol/L Potassium (3.5-5.1) mmol/L Chloride (98-107) mmol/L Carbon Dioxide (22-30) mmol/L Anion Gap mmol/L BUN (7-17) mg/dL Creatinine (0.52-1.04) mg/dL Est GFR (CKD-EPI)AfAm (>60 ml/min/1.73 sqM) Est GFR (CKD-EPI)NonAf (>60 ml/min/1.73 sqM) Glucose (74-99) mg/dL Calcium (8.4-10.2) mg/dL Magnesium (1.6-2.3) mg/dL Total Bilirubin (0.2-1.3) mg/dL AST (14-36) U/L ALT (9-52) U/L Alkaline Phosphatase (38-126) U/L Troponin I <0.012 (0.000-0.034) ng/mL Total Protein (6.3-8.2) g/dL Albumin (3.5-5.0) g/dL Disposition <Sylvester Vieira - Last Filed: 11/08/18 17:03> Is patient prescribed a controlled substance at d/c from ED?: No <Janak Villalobos - Last Filed: 11/08/18 17:41> Clinical Impression: Muscle spasm, Medication reaction Disposition: HOME SELF-CARE Condition: Good Instructions (If sedation given, give patient instructions): Muscle Spasm (ED) Referrals: Holden Calzada DO [Primary Care Provider] - 1-2 days
--- NOTE | 2018-11-08 16:02 | XR ---
EXAMINATION TYPE: XR chest 2V DATE OF EXAM: 11/08/2018 COMPARISON: 01/22/2013 HISTORY: Chest pain TECHNIQUE: Frontal and lateral views of the chest are obtained. FINDINGS: Heart and mediastinum are normal. Lungs are clear. Diaphragm is normal. Bony thorax appear s normal. There is a mild thoracic dextroscoliosis. IMPRESSION: No active cardiopulmonary disease. There is clearing of the right lower lobe infiltrate and right pleural fluid compared to old exam.
[2018-11-08 16:30] LABS: Basophils % (A) 1 %; Eosinophils # (A) 0.1 k/uL (0-0.7); Eosinophils % (A) 1 %; HCT 38.6 % (34.0-46.0); HGB 12.9 gm/dL (11.4-16.0); Lymphocytes # (A) 1.2 k/uL (1.0-4.8); Lymphocytes % (A) 18 %; MCH 30.4 pg (25.0-35.0); MCHC 33.5 g/dL (31.0-37.0); MCV 90.9 fL (80.0-100.0); Mean Platelet Volume 7.6; Monocytes # (A) 0.5 k/uL (0-1.0); Monocytes % (A) 7 %; Neutrophils # (A) 4.9 k/uL (1.3-7.7); Neutrophils % (A) 72 %; Platelet Count 181 k/uL (150-450); RBC 4.25 m/uL (3.80-5.40); WBC 6.8 k/uL (3.8-10.6)
[2018-11-08 16:40] LABS: ALT 36 U/L (9-52); AST 29 U/L (14-36); African American GFR (CKD) >90 (>60 ml/min/1.73 sqM); Albumin 4.1 g/dL (3.5-5.0); Alkaline Phosphatase 70 U/L (38-126); Anion Gap 7 mmol/L; Blood Urea Nitrogen 19 mg/dL (7-17); Calcium 9.2 mg/dL (8.4-10.2); Carbon Dioxide 27 mmol/L (22-30); Chloride 106 mmol/L (98-107); Glucose 115 mg/dL (74-99); Magnesium 1.9 mg/dL (1.6-2.3); Potassium 3.5 mmol/L (3.5-5.1); Sodium 140 mmol/L (137-145); Total Bilirubin 0.3 mg/dL (0.2-1.3); Total Protein 6.9 g/dL (6.3-8.2)
[2018-11-08 17:03] LABS: INR 0.9 (<1.2); Partial Thromboplastin Time 20.9 sec (22.0-30.0); Prothrombin Time 9.4 sec (9.0-12.0)
[2018-11-08 17:44] VITALS: BP 122/77
[2018-11-08 17:45] VITALS: PULSE 98; RESP 16
== END 2018-11-08 17:44 | disposition home or self-care (01) ==
LOC: EC 15:15
DX: M62.838 Other muscle spasm (principal); T43.595A Adverse effect of other antipsychotics and neuroleptics, initial encounter; R00.0 Tachycardia, unspecified; I10 Essential (primary) hypertension; H91.91 Unspecified hearing loss, right ear; G47.30 Sleep apnea, unspecified; G40.909 Epilepsy, unspecified, not intractable, without status epilepticus; F31.9 Bipolar disorder, unspecified; Z88.8 Allergy status to other drugs, medicaments and biological substances; Z79.52 Long term (current) use of systemic steroids; Z79.899 Other long term (current) drug therapy; Z99.89 Dependence on other enabling machines and devices
CPT/HCPCS: 36415; 93005; 80053; 83735; 84484; 85025; 85610; 85730; 71046; 99285; 96374; 96375; J3360; J1885

== ENCOUNTER 2019-09-30 09:31 | Emergency (ER) | payer MEDICARE ==
[2019-09-30 09:37] VITALS: RESP 18; TEMP 98.2
[2019-09-30] MEDS ORDERED: KETOROLAC 30 MG/ML 1 ML VIAL IM STA (09:55)
--- NOTE | 2019-09-30 10:28 | ED ---
General Adult HPI - General Chief complaint: Extremity Problem,Nontraumatic Stated complaint: Lt arm numbness Time Seen by Provider: 09/30/19 09:40 Source: patient, RN notes reviewed Mode of arrival: ambulatory Limitations: no limitations - History of Present Illness Initial comments: 43-year-old female with a, located have medical history including DVT because of oral contraceptives presents to the emergency department for left arm pain and tingling. Patient reports that she has a tingling feeling to the left arm. He states he feels like "1000 needles". Patient reports that she also has a radiating pain from her left shoulder that shoots down her left arm. Patient does admit that movement makes this worse at times. Patient does have a history of blood clot in the left arm when she was on oral contraceptive pills. This was several years ago. Patient states it feels similar to that time. Patient denies chest pain or shortness of breath. Patient denies any weakness of the left arm. Denies headache.Patient has no other complaints at this time including shortness of breath, chest pain, abdominal pain, nausea or vomiting, headache, or visual changes. - Related Data Home Medications Medication Instructions Recorded Confirmed Valsartan [Diovan] 80 mg PO DAILY 10/08/18 11/08/18 Butalb/APAP/Caff 50-325-40Mg 1 tab PO Q8H PRN 11/08/18 11/08/18 [Fioricet 50-325-40] Cariprazine HCl [Vraylar] 1.5 mg PO DAILY 11/08/18 11/08/18 Ibuprofen [Motrin Ib] 200 mg PO Q46H PRN 11/08/18 11/08/18 OXcarbazepine [Trileptal] 150 mg PO BID 11/08/18 11/08/18 Prednisolone Acetate/Pf 3 drop RIGHT EAR BID 11/08/18 11/08/18 [Prednisolone Acet 1% Eye Drop] diphenhydrAMINE HCL [Benadryl] 25 mg PO DAILY PRN 11/08/18 11/08/18 lisinopriL 20 mg PO DAILY 11/08/18 11/08/18 Previous Rx's Medication Instructions Recorded predniSONE 50 mg PO DAILY #5 tablet 09/30/19 Allergies Allergy/AdvReac Type Severity Reaction Status Date / Time [facility] [[facility]] Allergy Swelling Verified 10/08/18 12:36 paroxetine HCl [From Paxil] Allergy Rash/Hives Verified 10/08/18 12:36 quetiapine [From Seroquel] Allergy Rash/Hives Verified 09/30/19 09:37 trazodone Allergy Unknown Verified 11/08/18 16:25 ziprasidone [From Geodon] Allergy Swelling Verified 10/08/18 12:36 Review of Systems ROS Statement: Those systems with pertinent positive or pertinent negative responses have been documented in the HPI. ROS Other: All systems not noted in ROS Statement are negative. Past Medical History Past Medical History: Asthma, Diabetes Mellitus, Deep Vein Thrombosis (DVT), GERD/Reflux, Hearing Disorder / Deafness, Hyperlipidemia, Hypertension, Osteoarthritis (OA), Seizure Disorder, Sleep Apnea/CPAP/BIPAP Additional Past Medical History / Comment(s): SEIZURES CHILD, NONE SINCE AGE 15. NO TX FOR DM IN PAST 2-3 YEARS, SINCE WGT LOSS. BORDERLINE HTN, NO RX YET. HX LT ARM DVT X2, WAS ON BCP. "SEEM TO BLEED LONGER NOW." CTS IN MAGDA HANDS, WRISTS; TENDINITIS ARMS/LEGS; NT ARMS/LEGS. DECR HEARING RT EAR. USES CPAP. History of Any Multi-Drug Resistant Organisms: None Reported Past Surgical History: Bladder Surgery, Ear Surgery, Hysterectomy, Orthopedic Surgery Additional Past Surgical History / Comment(s): RT KNEE SURG. BLADDER SLING. BMT. CLEFT PALATE SURGERY. BB REMOVED FROM HEAD. Past Anesthesia/Blood Transfusion Reactions: Family History of Problems w/ Anesthesia, Motion Sickness Additional Past Anesthesia/Blood Transfusion Reaction / Comment(s): SISTERS HAVE PONV. Past Psychological History: Anxiety, Bipolar Smoking Status: Former smoker Past Alcohol Use History: None Reported Past Drug Use History: None Reported - Past Family History Mother Family Medical History: Cancer, Deep Vein Thrombosis (DVT), Pulmonary Embolus Father Family Medical History: Deep Vein Thrombosis (DVT), Pulmonary Embolus Additional Family Medical History / Comment(s): RONNIE GERIGHS DISEASE. General Exam Limitations: no limitations General appearance: alert, in no apparent distress Head exam: Present: atraumatic, normocephalic, normal inspection Eye exam: Present: normal appearance, PERRL, EOMI. Absent: scleral icterus, conjunctival injection, periorbital swelling ENT exam: Present: normal exam, mucous membranes moist Neck exam: Present: normal inspection, full ROM. Absent: tenderness, meningismus, lymphadenopathy Respiratory exam: Present: normal lung sounds bilaterally. Absent: respiratory distress, wheezes, rales, rhonchi, stridor Cardiovascular Exam: Present: regular rate, normal rhythm, normal heart sounds. Absent: systolic murmur, diastolic murmur, rubs, gallop, clicks Extremities exam: Present: full ROM (Full range of motion of the left arm.), normal capillary refill (Capillary refill less than 2 seconds.), other (Sensation intact in left arm. Senior Clinical Data Analyst strength 5 out of 5. Strength 5 out of 5 in the left arm. No erythema or edema of the left arm. Skin exam is normal.). Absent: tenderness, pedal edema, joint swelling, calf tenderness Neurological exam: Present: alert, oriented X3 Course Vital Signs 09/30/19 09:35 Temperature 98.2 F Pulse Rate 120 H Respiratory 18 Rate Blood Pressure 152/86 O2 Sat by Pulse 96 Oximetry Medical Decision Making - Medical Decision Making HPI physical exam as documented. Patient has needlelike sensation in the left arm and hand with a sharp shooting pain radiating down the left arm. Denies weakness of the left arm. Sensation is intact on examination and radial pulses 2+. Ultrasound is negative. Again no weakness in the arm. This is likely related to a cervical radiculopathy given sharp shooting pain down the left arm with paresthesia. Patient will be started on prednisone and will take Tylenol for pain. Patient will follow up with primary care. She'll return here for any worsening symptoms or weakness of the left arm. Disposition Clinical Impression: Left arm pain, Paresthesia Disposition: HOME SELF-CARE Condition: Good Instructions (If sedation given, give patient instructions): Cervical Radiculopathy (ED) Additional Instructions: Please take steroid as directed. Please take Tylenol for pain. Do not take Motrin on days when you take steroids as this will be hard on your stomach. Please follow-up with your doctor in one to 2 days. Return here to the emergency room should you develop any other or worsening symptoms. Prescriptions: predniSONE 50 mg PO DAILY #5 tablet Is patient prescribed a controlled substance at d/c from ED?: No Referrals: Dilshad Fontana [Primary Care Provider] - 1-2 days Time of Disposition: 11:12
--- NOTE | 2019-09-30 10:59 | US ---
EXAMINATION TYPE: US venous doppler duplex UE LT DATE OF EXAM: 09/30/2019 COMPARISON: NONE CLINICAL HISTORY: pain, h/o dvt arm. Left chest and arm pain and numbness today; DVT left arm greater than 5 years ago and is not on blood thinner. SIDE PERFORMED: left arm Left Arm: Negative for DVT. Negative for SVT IMPRESSION: 1. No ultrasound evidence of deep venous thrombosis left upper extremity.
[2019-09-30 11:45] VITALS: BP 138/97; PULSE 89
== END 2019-09-30 11:26 | disposition home or self-care (01) ==
LOC: EC 09:31
DX: M79.602 Pain in left arm (principal); R20.2 Paresthesia of skin; R20.0 Anesthesia of skin; I10 Essential (primary) hypertension; E11.9 Type 2 diabetes mellitus without complications; F31.9 Bipolar disorder, unspecified; Z79.899 Other long term (current) drug therapy; Z88.8 Allergy status to other drugs, medicaments and biological substances; Z86.718 Personal history of other venous thrombosis and embolism; Z87.891 Personal history of nicotine dependence
CPT/HCPCS: 96372; 99284

== ENCOUNTER → 2020-01-07 | Outpatient (CLI) | payer MEDICARE ==
[2020-01-07 12:34] LABS: Calcium 9.8 mg/dL (8.4-10.2); HGB 11.4 gm/dL (11.4-16.0); MCH 29.4 pg (25.0-35.0); MCHC 32.6 g/dL (31.0-37.0); MCV 90.4 fL (80.0-100.0); Mean Platelet Volume 7.4; Platelet Count 198 k/uL (150-450); Potassium 3.7 mmol/L (3.5-5.1); RBC 3.87 m/uL (3.80-5.40); RDW 14.7 % (11.5-15.5); WBC 10.5 k/uL (3.8-10.6)
[2020-01-07 12:51] LABS: INR 0.9 (<1.2); Prothrombin Time 9.8 sec (9.0-12.0)
[2020-01-07 13:03] LABS: Partial Thromboplastin Time 20.4 sec (22.0-30.0)
[2020-01-07 14:21] LABS: Appearance,Urine Cloudy (Clear); Bilirubin,Urine Negative (Negative); Blood,Urine Negative (Negative); Color,Urine Light Yellow; Glucose,Urine (UA) 2+ (Negative); Hyaline Casts,Urine 6 /lpf (0-2); Ketones,Urine Negative (Negative); Leukocyte Esterase,Urine Negative (Negative); Mucus,Urine Rare /hpf; Nitrite,Urine Negative (Negative); PH, Urine 5.5 (5.0-8.0); Protein,Urine Negative (Negative); RBC,Urine 1 /hpf (0-5); Squamous Epithelial Cell,Urine 4 /hpf (0-4); Urobilinogen,Urine <2.0 mg/dL (<2.0); WBC,Urine 3 /hpf (0-5)
== END | disposition home or self-care (01) ==
LOC: LABPAT 10:33
PROVIDERS: ATTEND Orthopaedic Surgery Orthopaedic Surgery of the Spine
DX: Z01.812 Encounter for preprocedural laboratory examination (principal)
CPT/HCPCS: 36415; 80048; 81001; 85027; 85610; 85730; 87070

== ENCOUNTER → 2020-01-08 | Outpatient (CLI) | payer MEDICARE ==
--- NOTE | 2020-01-08 08:27 | XR ---
EXAMINATION TYPE: XR chest 2V DATE OF EXAM: 01/08/2020 COMPARISON: 11/08/2018 INDICATION: Presurgical evaluation, history of asthma TECHNIQUE: Frontal and lateral views of the chest are obtained. FINDINGS: The heart size is normal. The pulmonary vasculature is normal. The lungs are clear. IMPRESSION: 1. No acute pulmonary process.
== END | disposition home or self-care (01) ==
LOC: LABPAT 07:41
PROVIDERS: ATTEND Orthopaedic Surgery Orthopaedic Surgery of the Spine
DX: Z01.818 Encounter for other preprocedural examination (principal)
CPT/HCPCS: 71046

== ENCOUNTER → 2020-01-22 | Outpatient (CLI) | payer MEDICARE | END | disposition home or self-care (01) | LOC: LABPAT 09:20 | PROVIDERS: ATTEND Orthopaedic Surgery Orthopaedic Surgery of the Spine | DX: Z53.9 Procedure and treatment not carried out, unspecified reason (principal) ==

== ENCOUNTER 2020-02-02 11:23 | Inpatient (IN) | payer MEDICARE ==
[2020-02-02] MEDS ORDERED: SODIUM CHLORIDE 0.9% 1,000 ML IV STA (11:36)
--- NOTE | 2020-02-02 11:41 | ED ---
General Adult HPI - General Chief complaint: Recheck/Abnormal Lab/Rx Stated complaint: kidney injury Time Seen by Provider: 02/02/20 11:31 Source: patient, RN notes reviewed Mode of arrival: ambulatory Limitations: no limitations - History of Present Illness Initial comments: Patient is a pleasant 44-year-old female presenting to the emergency department with concerns for kidney function. Patient was doing testing for planned back surgery. Patient was found to have elevated creatinine of 2.5 approximately. This was a new finding for her. Patient states she is on a diuretic and does feel mildly dehydrated. Patient also has some mild fatigue. No new pain. No history of similar symptoms previously. - Related Data Home Medications Medication Instructions Recorded Confirmed Albuterol Inhaler [Ventolin Hfa 2 puff INHALATION RT-Q6H PRN 01/15/20 02/02/20 Inhaler] Atorvastatin [Lipitor] 40 mg PO DAILY 01/15/20 02/02/20 Cariprazine HCl [Vraylar] 4.5 mg PO QAM 01/15/20 02/02/20 OXcarbazepine [Trileptal] 300 mg PO BID 01/15/20 02/02/20 Oxybutynin Chloride [Oxybutynin 10 mg PO QAM 01/15/20 02/02/20 Chloride ER] Prazosin HCl 1 mg PO HS 01/15/20 02/02/20 Prazosin HCl 2 mg PO HS 01/15/20 02/02/20 amLODIPine BESYLATE 5 mg PO DAILY 01/15/20 02/02/20 hydroCHLOROthiazide [Hydrodiuril] 25 mg PO DAILY 01/15/20 02/02/20 lisinopriL 40 mg PO DAILY 01/15/20 02/02/20 hydrOXYzine HCL [Atarax] 50 mg PO BID PRN 01/29/20 02/02/20 Fluticasone Nasal [place] [Flonase 1 spray EA NOSTRIL DAILY 02/02/20 02/02/20 Nasal [place]] Gabapentin [Neurontin] 400 mg PO TID 02/02/20 02/02/20 Metoprolol Succinate (ER) [Toprol 50 mg PO DAILY 02/02/20 02/02/20 Xl] Multivitamins, Thera [Multivitamin 1 tab PO DAILY 02/02/20 02/02/20 (formulary)] Ondansetron Odt [Zofran Odt] 4 mg PO Q12HR PRN 02/02/20 02/02/20 Allergies Allergy/AdvReac Type Severity Reaction Status Date / Time aripiprazole [From Abilify] Allergy Swelling Verified 02/02/20 12:57 paroxetine HCl [From Paxil] Allergy Rash/Hives Verified 02/02/20 12:57 quetiapine [From Seroquel] Allergy Rash/Hives Verified 02/02/20 12:57 trazodone Allergy Unknown Verified 02/02/20 12:57 ziprasidone [From Geodon] Allergy Swelling Verified 02/02/20 12:57 Review of Systems ROS Statement: Those systems with pertinent positive or pertinent negative responses have been documented in the HPI. ROS Other: All systems not noted in ROS Statement are negative. Constitutional: Denies: fever Eyes: Denies: eye pain ENT: Denies: ear pain Respiratory: Denies: cough Cardiovascular: Denies: chest pain Endocrine: Denies: fatigue Gastrointestinal: Denies: abdominal pain Genitourinary: Denies: dysuria Musculoskeletal: Reports: as per HPI Skin: Denies: rash Neurological: Denies: weakness Past Medical History Past Medical History: Asthma, Diabetes Mellitus, Deep Vein Thrombosis (DVT), GERD/Reflux, Hearing Disorder / Deafness, Hyperlipidemia, Hypertension, Osteoarthritis (OA), Seizure Disorder, Sleep Apnea/CPAP/BIPAP Additional Past Medical History / Comment(s): SEIZURES CHILD, NONE SINCE AGE 15. NO TX FOR DM IN PAST 2-3 YEARS, SINCE WGT LOSS. BORDERLINE HTN, NO RX YET. HX LT ARM DVT X2, WAS ON BCP. "SEEM TO BLEED LONGER NOW." CTS IN MAGDA HANDS, WRISTS; TENDINITIS ARMS/LEGS; NT ARMS/LEGS. DECR HEARING RT EAR. USES CPAP. History of Any Multi-Drug Resistant Organisms: None Reported Past Surgical History: Bladder Surgery, Ear Surgery, Hysterectomy, Orthopedic Surgery Additional Past Surgical History / Comment(s): RT KNEE SURG. BLADDER SLING. BMT. CLEFT PALATE SURGERY. BB REMOVED FROM HEAD. Past Anesthesia/Blood Transfusion Reactions: Family History of Problems w/ Ane sthesia, Motion Sickness Additional Past Anesthesia/Blood Transfusion Reaction / Comment(s): SISTERS HAVE PONV. Past Psychological History: Anxiety, Bipolar Smoking Status: Former smoker Past Alcohol Use History: None Reported Past Drug Use History: None Reported - Past Family History Mother Family Medical History: Cancer, Deep Vein Thrombosis (DVT), Pulmonary Embolus Father Family Medical History: Deep Vein Thrombosis (DVT), Pulmonary Embolus Additional Family Medical History / Comment(s): RONNIE GERIGHS DISEASE. General Exam Limitations: no limitations General appearance: alert, in no apparent distress Head exam: Present: normocephalic Eye exam: Present: normal appearance Neck exam: Present: normal inspection Respiratory exam: Present: normal lung sounds bilaterally Cardiovascular Exam: Present: regular rate, normal rhythm GI/Abdominal exam: Present: soft. Absent: tenderness Extremities exam: Present: normal inspection Neurological exam: Present: alert Psychiatric exam: Present: normal affect, normal mood Skin exam: Present: normal color Course Vital Signs 02/02/20 02/02/20 11:27 12:36 Temperature 98.7 F Pulse Rate 122 H 111 H Respiratory 18 18 Rate Blood Pressure 130/84 117/62 O2 Sat by Pulse 100 96 Oximetry EKG Findings - EKG Comments: EKG Findings:: Sinus rhythm with a rate of 113. QRS 76. QT 474. QTC 650. Normal axis. Normal QRS. No acute ST change. Medical Decision Making - Medical Decision Making Patient reevaluated. Patient and family updated. Case discussed with Dr. Hollingsworth, who will admit for medical call - Lab Data Result diagrams: 02/02/20 12:10 02/02/20 12:10 Lab Results 02/02/20 02/02/20 02/02/20 Range/Units 12:10 12:10 12:10 WBC 7.2 (3.8-10.6) k/uL RBC 3.89 (3.80-5.40) m/uL Hgb 11.0 L (11.4-16.0) gm/dL Hct 34.2 (34.0-46.0) % MCV 87.8 (80.0-100.0) fL MCH 28.2 (25.0-35.0) pg MCHC 32.1 (31.0-37.0) g/dL RDW 14.7 (11.5-15.5) % Plt Count 204 (150-450) k/uL MPV 7.6 Neutrophils % 75 % Lymphocytes % 18 % Monocytes % 5 % Eosinophils % 2 % Basophils % 0 % Neutrophils # 5.4 (1.3-7.7) k/uL Lymphocytes # 1.3 (1.0-4.8) k/uL Monocytes # 0.3 (0-1.0) k/uL Eosinophils # 0.1 (0-0.7) k/uL Basophils # 0.0 (0-0.2) k/uL PT (9.0-12.0) sec INR (<1.2) APTT (22.0-30.0) sec Sodium 139 (137-145) mmol/L Potassium 4.1 (3.5-5.1) mmol/L Chloride 108 H (98-107) mmol/L Carbon Dioxide 21 L (22-30) mmol/L Anion Gap 10 mmol/L BUN 51 H (7-17) mg/dL Creatinine 2.16 H (0.52-1.04) mg/dL Est GFR (CKD-EPI)AfAm 31 (>60 ml/min/1.73 sqM) Est GFR (CKD-EPI)NonAf 27 (>60 ml/min/1.73 sqM) Glucose 136 H (74-99) mg/dL Calcium 9.6 (8.4-10.2) mg/dL Total Bilirubin 0.7 (0.2-1.3) mg/dL AST 51 H (14-36) U/L ALT 52 H (4-34) U/L Alkaline Phosphatase 92 (38-126) U/L Creatine Kinase 127 (30-135) U/L Total Protein 7.8 (6.3-8.2) g/dL Albumin 4.6 (3.5-5.0) g/dL Urine Color Light Yellow Urine Appearance Cloudy H (Clear) Urine pH 5.0 (5.0-8.0) Ur Specific [place] 1.014 (1.001-1.035) Urine Protein Trace H (Negative) Urine Glucose (UA) 2+ H (Negative) Urine Ketones Negative (Negative) Urine Blood Negative (Negative) Urine Nitrite Negative (Negative) Urine Bilirubin Negative (Negative) Urine Urobilinogen <2.0 (<2.0) mg/dL Ur Leukocyte Esterase Negative (Negative) Urine RBC <1 (0-5) /hpf Urine WBC 2 (0-5) /hpf Ur Squamous Epith Cells 8 H (0-4) /hpf Urine Bacteria Rare H (None) /hpf Hyaline Casts 4 H (0-2) /lpf Urine Mucus Rare H (None) /hpf 02/02/20 Range/Units 12:10 WBC (3.8-10.6) k/uL RBC (3.80-5.40) m/uL Hgb (11.4-16.0) gm/dL Hct (34.0-46.0) % MCV (80.0-100.0) fL MCH (25.0-35.0) pg MCHC (31.0-37.0) g/dL RDW (11.5-15.5) % Plt Count (150-450) k/uL MPV Neutrophils % % Lymphocytes % % Monocytes % % Eosinophils % % Basophils % % Neutrophils # (1.3-7.7) k/uL Lymphocytes # (1.0-4.8) k/uL Monocytes # (0-1.0) k/uL Eosinophils # (0-0.7) k/uL Basophils # (0-0.2) k/uL PT 9.9 (9.0-12.0) sec INR 0.9 (<1.2) APTT 20.5 L (22.0-30.0) sec Sodium (137-145) mmol/L Potassium (3.5-5.1) mmol/L Chloride (98-107) mmol/L Carbon Dioxide (22-30) mmol/L Anion Gap mmol/L BUN (7-17) mg/dL Creatinine (0.52-1.04) mg/dL Est GFR (CKD-EPI)AfAm (>60 ml/min/1.73 sqM) Est GFR (CKD-EPI)NonAf (>60 ml/min/1.73 sqM) Glucose (74-99) mg/dL Calcium (8.4-10.2) mg/dL Total Bilirubin (0.2-1.3) mg/dL AST (14-36) U/L ALT (4-34) U/L Alkaline Phosphatase (38-126) U/L Creatine Kinase (30-135) U/L Total Protein (6.3-8.2) g/dL Albumin (3.5-5.0) g/dL Urine Color Urine Appearance (Clear) Urine pH (5.0-8.0) Ur Specific [place] (1.001-1.035) Urine Protein (Negative) Urine Glucose (UA) (Negative) Urine Ketones (Negative) Urine Blood (Negative) Urine Nitrite (Negative) Urine Bilirubin (Negative) Urine Urobilinogen (<2.0) mg/dL Ur Leukocyte Esterase (Negative) Urine RBC (0-5) /hpf Urine WBC (0-5) /hpf Ur Squamous Epith Cells (0-4) /hpf Urine Bacteria (None) /hpf Hyaline Casts (0-2) /lpf Urine Mucus (None) /hpf Disposition Clinical Impression: Acute renal failure (ARF) Disposition: ADMITTED IP TO THIS HOSP Is patient prescribed a controlled substance at d/c from ED?: No Referrals: Dilshad Fontana [Primary Care Provider] - 1-2 days Decision Time: 13:04
[2020-02-02 12:20] LABS: Basophils % (A) 0 %; Eosinophils # (A) 0.1 k/uL (0-0.7); Eosinophils % (A) 2 %; HCT 34.2 % (34.0-46.0); Lymphocytes # (A) 1.3 k/uL (1.0-4.8); Lymphocytes % (A) 18 %; MCH 28.2 pg (25.0-35.0); MCHC 32.1 g/dL (31.0-37.0); MCV 87.8 fL (80.0-100.0); Mean Platelet Volume 7.6; Monocytes # (A) 0.3 k/uL (0-1.0); Monocytes % (A) 5 %; Neutrophils # (A) 5.4 k/uL (1.3-7.7); Neutrophils % (A) 75 %; Platelet Count 204 k/uL (150-450); RBC 3.89 m/uL (3.80-5.40); RDW 14.7 % (11.5-15.5); WBC 7.2 k/uL (3.8-10.6)
[2020-02-02 12:23] LABS: Appearance,Urine Cloudy (Clear); Bacteria,Urine Rare /hpf; Bilirubin,Urine Negative (Negative); Blood,Urine Negative (Negative); Color,Urine Light Yellow; Glucose,Urine (UA) 2+ (Negative); Hyaline Casts,Urine 4 /lpf (0-2); Ketones,Urine Negative (Negative); Leukocyte Esterase,Urine Negative (Negative); Mucus,Urine Rare /hpf; Nitrite,Urine Negative (Negative); Protein,Urine Trace (Negative); RBC,Urine <1 /hpf (0-5); Specific Gravity,Urine 1.014 (1.001-1.035); Squamous Epithelial Cell,Urine 8 /hpf (0-4); Urobilinogen,Urine <2.0 mg/dL (<2.0); WBC,Urine 2 /hpf (0-5)
[2020-02-02 12:38] LABS: Albumin 4.6 g/dL (3.5-5.0); Calcium 9.6 mg/dL (8.4-10.2); Potassium 4.1 mmol/L (3.5-5.1); Total Bilirubin 0.7 mg/dL (0.2-1.3); Total Protein 7.8 g/dL (6.3-8.2)
[2020-02-02 12:52] LABS: INR 0.9 (<1.2); Prothrombin Time 9.9 sec (9.0-12.0)
[2020-02-02 12:56] LABS: Partial Thromboplastin Time 20.5 sec (22.0-30.0)
[2020-02-02] MEDS ORDERED: NALOXONE 0.4 MG/ML 1 ML VIAL IV PRN (13:05)
[2020-02-02] MEDS ORDERED: SODIUM CHLORIDE 0.9% 500 ML 500 ML IV STA (13:53)
[2020-02-02] MEDS: SODIUM CHLORIDE 0.9% 1,000 ML IV SCH ×2 (14:06→22:07)
[2020-02-02] MEDS ORDERED: ALBUTEROL HFA INHALER INHALATION PRN (14:40)
[2020-02-02] MEDS ORDERED: hydrOXYzine HCL 25 MG TAB PO PRN (14:40)
[2020-02-02] MEDS ORDERED: ONDANSETRON ODT 4 MG TAB PO PRN (14:40)
[2020-02-02] MEDS ORDERED: DOCUSATE 100 MG CAP PO PRN (14:42)
[2020-02-02] MEDS: PANTOPRAZOLE 40 MG TABLET PO SCH (15:51)
[2020-02-02] MEDS: GABAPENTIN 400 MG CAP PO SCH ×2 (15:51→22:06)
--- NOTE | 2020-02-02 16:01 | HP ---
HISTORY AND PHYSICAL DATE OF SERVICE: 02/02/2020 CHIEF COMPLAINTS: Abnormal labs and acute renal failure. HISTORY OF PRESENT ILLNESS: This is a 44-year-old woman with a past medical history of multiple medical problems including asthma, diabetes mellitus, history of DVT, seizure disorder, being followed by Dr. Andrade in the outpatient setting, is scheduled to have back surgery tomorrow by Dr. Negron. The part of the preoperative labs, the patient had a creatinine was found to be elevated at 2.5. Patient has some complaints of constipation and the patient also reported some diminished p.o. intake. The patient came to [facility] and was admitted, given IV fluids and given at this time, there is no history of fever, chills, rigors. No history of headache, loss of consciousness, seizures. PAST MEDICAL HISTORY: Asthma, diabetes, DVT, GERD, seizures, DJD. HOME MEDICATIONS: Multivitamins, Neurontin, nasal spray, Zofran, Toprol-XL, lisinopril, Prazosin, oxybutynin, hydroureter, amlodipine, Vryalar ALLERGIES: ABILIFY, PAXIL, SEROQUEL, TRAZODONE, GEODON. FAMILY HISTORY: History of DVT, history of pulmonary embolus, cancer in the family, history of Nela Gehrig disease. SOCIAL HISTORY: No history of smoke, occasional alcohol. REVIEW OF SYSTEMS: ENT: No diminished vision. CARDIOVASCULAR: No angina. RESPIRATION: No cough. GI: As mentioned earlier. : As mentioned earlier. NERVOUS SYSTEM: No numbness, weakness. ALLERGY/IMMUNOLOGY: No asthma or hayfever. MUSCULOSKELETAL: As mentioned earlier. HEMATOLOGY: No history of anemia. ENDOCRINE: No history of diabetes or hypothyroid. CONSTITUTIONAL: As mentioned earlier. DERMATOLOGY: Negative. RHEUMATOLOGY: Negative. PSYCHIATRY: As mentioned earlier. PHYSICAL EXAMINATION: Alert and oriented x3, pulse 107, blood pressure 130/60, respiration 18, temperature 98.7, pulse ox 97% on room air. HEENT: Conjunctivae normal. NECK: No jugular venous distension. CARDIOVASCULAR SYSTEM: S1, S2, muffled. RESPIRATION: Breath sounds diminished at the bases, no rhonchi, no crackles. ABDOMEN: Soft, obese, nontender. No mass palpable. LEGS: No edema, no swelling. NERVOUS SYSTEM: Higher functions as mentioned earlier. Moves all for limbs. LYMPHATICS: No lymph nodes enlargement in the neck or axillae. SKIN: No rash, no ulcers, no bleeding. JOINTS: No active arthropathy. LABS: Hemoglobin 11, otherwise creatinine is 2.16, baseline is normal, UA noted, AST ALT noted. ASSESSMENT: 1. Acute renal failure with prerenal acute tubular necrosis and dehydration, present on admission. 2. Severe DJD for surgery tomorrow. 3. Anemia, normocytic anemia of chronic disease. 4. Elevated AST, ALT, mildly. 5. History of asthma. 6. History of diabetes mellitus type 2. 7. History of deep vein thrombosis. 8. GERD. 9. Hypertension. 10.Hyperlipidemia. 11.DJD>. 12.Seizure disorder. 13.History of sleep apnea. 14.History of bladder surgery. 15.History of hysterectomy. 16.history of anxiety, bipolar. 17.Remote history of nicotine dependence. 18.Obesity with body mass 51.2. 19.FULL CODE. RECOMMENDATION: In this 44-year-old woman who presented with multiple complex medical issues, will monitor the patient closely, continue with the current management and symptomatic treatment. I recommend IV fluids, repeat labs in the morning. Hold the lisinopril and hydrochlorothiazide. Monitor creatinine closely. Resume the rest of medications. DVT prophylaxis. Overall, patient is currently stable. If the creatinine improves by tomorrow, the patient is cleared for surgery. Further recommendations to follow, closely follow with Dr. Negron. MMODL / IJN: [id number] / MTDD
[2020-02-02] MEDS: PRAZOSIN 1 MG CAP PO SCH (22:06)
[2020-02-02] MEDS: HEPARIN SODIUM,PORCINE 5,000 UNIT/ML 1 ML VIAL SQ SCH (22:06)
[2020-02-02] MEDS: OXcarbazepine 300 MG TAB PO SCH (22:06)
[2020-02-03] MEDS: PANTOPRAZOLE 40 MG TABLET PO SCH (05:54)
[2020-02-03] MEDS: SODIUM CHLORIDE 0.9% 1,000 ML IV SCH ×2 (05:54→13:58)
[2020-02-03 08:15] LABS: Albumin 3.9 g/dL (3.5-5.0); Calcium 8.3 mg/dL (8.4-10.2); Total Bilirubin 0.7 mg/dL (0.2-1.3); Total Protein 6.4 g/dL (6.3-8.2)
[2020-02-03 08:22] LABS: Basophils % (A) 1 %; Eosinophils # (A) 0.1 k/uL (0-0.7); Eosinophils % (A) 1 %; HCT 27.7 % (34.0-46.0); Lymphocytes # (A) 1.3 k/uL (1.0-4.8); Lymphocytes % (A) 26 %; MCH 29.2 pg (25.0-35.0); MCHC 33.2 g/dL (31.0-37.0); Mean Platelet Volume 7.5; Monocytes # (A) 0.3 k/uL (0-1.0); Monocytes % (A) 5 %; Neutrophils # (A) 3.4 k/uL (1.3-7.7); Neutrophils % (A) 67 %; Platelet Count 173 k/uL (150-450); RBC 3.14 m/uL (3.80-5.40); RDW 14.9 % (11.5-15.5); WBC 5.1 k/uL (3.8-10.6)
[2020-02-03 08:26] LABS: HGB 9.2 gm/dL (11.4-16.0)
[2020-02-03] MEDS: NON FORMULARY DRUG (Cariprazine Hcl [Vraylar] 4.5 MG Capsule) PO SCH (08:38)
[2020-02-03] MEDS: MULTIVITAMINS, THERA 1 EACH TAB PO SCH (08:40)
[2020-02-03] MEDS: HEPARIN SODIUM,PORCINE 5,000 UNIT/ML 1 ML VIAL SQ SCH ×2 (08:42→20:47)
[2020-02-03] MEDS: FLUTICASONE 50MCG/SPRAY NASAL 16GM EA NOSTRIL SCH (08:57)
[2020-02-03] MEDS: OXYBUTYNIN 10 MG TAB.ER.24 PO SCH (08:58)
[2020-02-03] MEDS: GABAPENTIN 400 MG CAP PO SCH ×3 (08:58→21:49)
[2020-02-03] MEDS: ATORVASTATIN 40 MG TAB PO SCH (08:58)
[2020-02-03] MEDS: amLODIPine 5 MG TAB PO SCH (09:03)
[2020-02-03] MEDS: METOPROLOL SUCCINATE (ER) 50 MG TAB.ER.24H PO SCH (09:03)
[2020-02-03] MEDS: OXcarbazepine 300 MG TAB PO SCH ×2 (09:03→20:47)
--- NOTE | 2020-02-03 13:38 | P.CNOR ---
History of Present Illness - [facility] Consult date: 02/03/20 Consult reason: low back pain History of present illness: Patient is a 44-year-old female who seen and examined today at bedside. She is well known to our service as she was actually planning to have surgery with her service for her lumbar spine today. Unfortunately the surgery had postponed due to to findings during her workup for surgery. She is found have acute renal insufficiency and was being treated however was having some limited response and had to be admitted into the hospital for further care. Apparently the patient is making improvement with her renal function. The patient has long-term history of low back pain with lower extremity radiculopathy bilaterally. She had been through extensive conservative treatment over the past several years but has been having worsening over the past few months. The patient was found have a dynamic spondylolisthesis at L4 5 with evidence of severe stenosis at L4 5 which really well with her low back pain and bilateral lower extremity radicular symptoms. We discussed various treatment options including conservative treatment and the possibly of surgical intervention. Patient had elected proceed with surgical intervention and was scheduled to undergo surgery today. However due to her renal function she needed further care and medical optimization. She is improving and she has been cleared by medicine to proceed with surgical intervention. We will hope for possible surgery tomorrow. Review of Systems Anesthesia per HPI. She denies any fevers chills. She denies any changes in bowel bladder function. She has any new problems in her lower extremity is but she has severe bilateral lower extremity numbness tingling and burning over L4 and 5 distribution. She has significant back pain whenever she tries to mobilize. Apparently she has history of renal issues in her family. She was unaware of this prior to yesterday. Past Medical History Past Medical History: Asthma, Diabetes Mellitus, Deep Vein Thrombosis (DVT), GERD/Reflux, Hearing Disorder / Deafness, Hyperlipidemia, Hypertension, Osteoarthritis (OA), Seizure Disorder, Sleep Apnea/CPAP/BIPAP Additional Past Medical History / Comment(s): SEIZURES CHILD, NONE SINCE AGE 15. NO TX FOR DM IN PAST 2-3 YEARS, SINCE WGT LOSS. BORDERLINE HTN, NO RX YET. HX LT ARM DVT X2, WAS ON BCP. "SEEM TO BLEED LONGER NOW." CTS IN MAGDA HANDS, WRISTS; TENDINITIS ARMS/LEGS; NT ARMS/LEGS. DECR HEARING RT EAR. USES CPAP. History of Any Multi-Drug Resistant Organisms: None Reported Past Surgical History: Bladder Surgery, Ear Surgery, Hysterectomy, Orthopedic Surgery Additional Past Surgical History / Comment(s): RT KNEE SURG. BLADDER SLING. BMT. CLEFT PALATE SURGERY. BB REMOVED FROM HEAD. Past Anesthesia/Blood Transfusion Reactions: Family History of Problems w/ Anesthesia, Motion Sickness Additional Past Anesthesia/Blood Transfusion Reaction / Comm: SISTERS HAVE PONV. Past Psychological History: Anxiety, Bipolar Additional Psychological History / Comment(s): HX ATTEMPTED SUICIDE, LAST TEEN. OFF RX FOR SURGERY, FEELS THE RX CAUSES HER INCR BLEEDING. Smoking Status: Never smoker Past Alcohol Use History: None Reported Past Drug Use History: None Reported - Past Family History Mother Family Medical History: Cancer, Deep Vein Thrombosis (DVT), Pulmonary Embolus Father Family Medical History: Deep Vein Thrombosis (DVT), Pulmonary Embolus Additional Family Medical History / Comment(s): RONNIE GERIGHS DISEASE. Medications and Allergies Home Medications Medication Instructions Recorded Confirmed Type Albuterol Inhaler [Ventolin Hfa 2 puff INHALATION RT-Q6H PRN 01/15/20 02/02/20 History Inhaler] Atorvastatin [Lipitor] 40 mg PO DAILY 01/15/20 02/02/20 History Cariprazine HCl [Vraylar] 4.5 mg PO QAM 01/15/20 02/02/20 History OXcarbazepine [Trileptal] 300 mg PO BID 01/15/20 02/02/20 History Oxybutynin Chloride [Oxybutynin 10 mg PO QAM 01/15/20 02/02/20 History Chloride ER] Prazosin HCl 1 mg PO HS 01/15/20 02/02/20 History Prazosin HCl 2 mg PO HS 01/15/20 02/02/20 History amLODIPine BESYLATE 5 mg PO DAILY 01/15/20 02/02/20 History hydroCHLOROthiazide [Hydrodiuril] 25 mg PO DAILY 01/15/20 02/02/20 History lisinopriL 40 mg PO DAILY 01/15/20 02/02/20 History hydrOXYzine HCL [Atarax] 50 mg PO BID PRN 01/29/20 02/02/20 History Fluticasone Nasal [place] [Flonase 1 spray EA NOSTRIL DAILY 02/02/20 02/02/20 History Nasal [place]] Gabapentin [Neurontin] 400 mg PO TID 02/02/20 02/02/20 History Metoprolol Succinate (ER) [Toprol 50 mg PO DAILY 02/02/20 02/02/20 History Xl] Multivitamins, Thera [Multivitamin 1 tab PO DAILY 02/02/20 02/02/20 History (formulary)] Ondansetron Odt [Zofran Odt] 4 mg PO Q12HR PRN 02/02/20 02/02/20 History Allergies Allergy/AdvReac Type Severity Reaction Status Date / Time aripiprazole [From Abilify] Allergy Swelling Verified 02/02/20 12:57 paroxetine HCl [From Paxil] Allergy Rash/Hives Verified 02/02/20 12:57 quetiapine [From Seroquel] Allergy Rash/Hives Verified 02/02/20 12:57 trazodone Allergy Unknown Verified 02/02/20 12:57 ziprasidone [From Geodon] Allergy Swelling Verified 02/02/20 12:57 Physical Examination Osteopathic Statement: *. No significant issues noted on an osteopathic structural exam other than those noted in the History and Physical/Consult. - L Spine: dermatomal strength & reflexes bilateral Strength: hip flexion: 5/5 (She has pain at her back with any sort of mobility. She is no open wounds lacerations or abrasions. Lower extremity says sustained dorsal flexion plantar flexion and EHL intact. Calves are soft nontender.) Results - Labs Labs: Abnormal Lab Results - Last 24 Hours (Table) 02/03/20 02/03/20 Range/Units 07:36 07:36 RBC 3.14 L (3.80-5.40) m/uL Hgb 9.2 L D (11.4-16.0) gm/dL Hct 27.7 L (34.0-46.0) % BUN 37 H (7-17) mg/dL Creatinine 1.60 H (0.52-1.04) mg/dL Glucose 113 H (74-99) mg/dL Calcium 8.3 L (8.4-10.2) mg/dL AST 39 H (14-36) U/L ALT 46 H (4-34) U/L H & H 02/02/20 02/03/20 Range/Units 12:10 07:36 Hgb 11.0 L 9.2 L D (11.4-16.0) gm/dL Hct 34.2 27.7 L (34.0-46.0) % Coagulation 02/02/20 Range/Units 12:10 INR 0.9 (<1.2) Result Diagrams: 02/03/20 07:36 02/03/20 07:36 - Diagnostic results Lumbar AP/lateral x-ray with flexion/extension views: report reviewed, image reviewed Lumbar MRI with/without contrast: report reviewed, image reviewed (The patient has had outpatient imaging which showed severe dynamic spondylolisthesis at L4 5 grade 2-3 spondylolisthesis. She has significant bilateral foraminal stenosis L4 5) Assessment and Plan Assessment: Acute renal limited insufficiency improving Dynamic spondylolisthesis L4 5 Spinal stenosis L4 5 Low back pain Bilateral lower extremity radiculopathy Plan: Acute renal limited insufficiency improving Dynamic spondylolisthesis L4 5 Spinal stenosis L4 5 Low back pain Bilateral lower extremity radiculopathy The patient's renal function appears to be improving with conservative treatment. Medicine has been following and treating her appropriately. She is making appropriate progress and they have cleared her to proceed with surgical intervention. The patient had planned on having lumbar decompression and fusion at L4 5 for her spondylolisthesis with spinal stenosis low back pain and lower extremity radiculopathy. Her surgery had been scheduled for today but had to be delayed due to her renal issues. She is making improvement with her real issues and has been cleared by medicine to proceed with her surgical intervention. We will plan for surgery tomorrow if we are able. We will have her nothing by mouth after midnight tonight and plan for Minimally invasive decompression and fusion L4 5. She does show some evidence of possible early urinary tract infection and we will give her prophylactic antibiotics as well.
[2020-02-03] MEDS ORDERED: HYDROcodone/APAP 5-325MG 1 EACH TAB PO PRN (13:41)
[2020-02-03] MEDS ORDERED: HYDROmorphone 1 MG/ML 1 ML SYRINGE IM PRN (13:41)
[2020-02-03] MEDS ORDERED: HYDROmorphone 1 MG/ML 1 ML SYRINGE IVP PRN (13:51)
[2020-02-03] MEDS: NITROFURANTOIN MONOHYD/M-CRYST 100 MG CAP PO SCH ×2 (13:58→20:47)
--- NOTE | 2020-02-03 15:40 | P.PN ---
Subjective Progress Note Date: 02/03/20 This is a 44-year-old female who was recently admitted with an elevated creatinine is patient was slated to have surgery with Dr. Negron and is being closely monitored. Patient is scheduled to undergo lumbar decompression and fusion at the L4/5 for spondylolisthesis and spinal stenosis with chronic low ba ck pain and lower extremity radiculopathy. Patient is maintained on IV fluids and will continue at this time and creatinine is trending down and is currently 1.6. Will repeat a.m. labs. Patient is clear for surgery and will be nothing by mouth at midnight. Patient continues to have some back discomfort although states she feels better from yesterday. Patient is up into the bathroom with no reports of dysuria or retention noted. Patient is denying any nausea or vomiting and tolerating diet. No reports of chest pain, shortness of breath, or palpitations noted. Patient remains afebrile. Objective - Vital Signs Vital signs: Vital Signs Temp 98.4 F 02/03/20 08:33 Pulse 95 02/03/20 08:33 Resp 24 02/03/20 08:33 BP 109/69 02/03/20 08:33 Pulse Ox 95 02/03/20 08:33 Intake & Output 02/02/20 02/03/20 02/03/20 18:59 06:59 18:59 Intake Total 375 Output Total 540 Balance -165 Weight 118.841 kg 118.4 kg Intake: Intake, IV Titration 375 Amount Sodium Chloride 0.9% 1, 375 000 ml @ 125 mls/hr IV . Q8H [facility] Rx#:[id number] Output: Urine 540 Other: # Voids 3 1 1 - Exam Gen: This is a 44-year-old female sitting up in bed, awake, alert and oriented 3, well-developed, well-nourished. Temp is 98.4F, pulse is 95, respirations are 24, blood pressure is 109/69, oxygen saturation is 95% on room air. HEENT: Head is atraumatic, normocephalic. Pupils equal, round. Sclerae is anicteric. NECK: Supple. No JVD. No lymphadenopathy. No thyromegaly. LUNGS: Manage breath sounds bilaterally with no wheezes or rhonchi. No intercostal retractions. HEART: S1, S2 are muffled ABDOMEN: Soft. Obese. Bowel sounds are present. No masses. No tenderness. EXTREMITIES: No pedal edema. No calf tenderness. NEUROLOGICAL: Patient is awake, alert and oriented x3. Cranial nerves 2 through 12 are grossly intact. - Labs CBC & Chem 7: 02/03/20 07:36 12 07:36 Labs: Abnormal Lab Results - Last 24 Hours (Table) 02/03/20 02/03/20 Range/Units 07:36 07:36 RBC 3.14 L (3.80-5.40) m/uL Hgb 9.2 L D (11.4-16.0) gm/dL Hct 27.7 L (34.0-46.0) % BUN 37 H (7-17) mg/dL Creatinine 1.60 H (0.52-1.04) mg/dL Glucose 113 H (74-99) mg/dL Calcium 8.3 L (8.4-10.2) mg/dL AST 39 H (14-36) U/L ALT 46 H (4-34) U/L Assessment and Plan Assessment: Acute renal failure with prerenal acute tubular necrosis and dehydration, present on admission Severe degenerative joint disease for surgery tomorrow Anemia, normocytic anemia of chronic disease Elevated AST, ALT, mildly History of asthma history of diabetes mellitus type 2 History of deep vein thrombosis GERD hypertension Hyperlipidemia Seizure disorder History of sleep apnea history of bladder surgery History of hysterectomy History of anxiety, bipolar Remote history of nicotine dependence Obesity with a body mass index of 51.2 Full code Recommendations and discussion: Recommend continue with IV fluids and monitor vital signs and labs closely. Creatinine is trending down and is currently 1.6 from 2.16 yesterday and is cleared for surgery. Will repeat a.m. labs. Continue current medications, management, and symptomatic treatment. Will continue to hold home blood pressure medication and monitor kidney functions closely. Continue DVT prophylaxis and pain management. Patient was seen and evaluated by Dr. Negron and will undergo surgical intervention the morning. To continue current diet and will be nothing by mouth at midnight. Further recommendations to follow.
[2020-02-03] MEDS: PRAZOSIN 1 MG CAP PO SCH (20:47)
[2020-02-04] MEDS: SODIUM CHLORIDE 0.9% 1,000 ML IV SCH ×5 (06:50→22:38)
[2020-02-04] MEDS: PANTOPRAZOLE 40 MG TABLET PO SCH (07:30)
[2020-02-04] MEDS: amLODIPine 5 MG TAB PO SCH (08:46)
[2020-02-04] MEDS: METOPROLOL SUCCINATE (ER) 50 MG TAB.ER.24H PO SCH (08:46)
[2020-02-04] MEDS: MULTIVITAMINS, THERA 1 EACH TAB PO SCH (09:00)
[2020-02-04] MEDS: HEPARIN SODIUM,PORCINE 5,000 UNIT/ML 1 ML VIAL SQ SCH ×2 (09:00→22:25)
[2020-02-04] MEDS: GABAPENTIN 400 MG CAP PO SCH ×3 (09:00→22:20)
[2020-02-04] MEDS: OXcarbazepine 300 MG TAB PO SCH ×2 (09:00→22:20)
[2020-02-04] MEDS: ATORVASTATIN 40 MG TAB PO SCH (09:00)
[2020-02-04] MEDS: NITROFURANTOIN MONOHYD/M-CRYST 100 MG CAP PO SCH ×2 (09:00→22:20)
[2020-02-04] MEDS: FLUTICASONE 50MCG/SPRAY NASAL 16GM EA NOSTRIL SCH (09:00)
[2020-02-04] MEDS: NON FORMULARY DRUG (Cariprazine Hcl [Vraylar] 4.5 MG Capsule) PO SCH (09:00)
[2020-02-04] MEDS: OXYBUTYNIN 10 MG TAB.ER.24 PO SCH (09:00)
[2020-02-04 09:10] LABS: Basophils % (A) 0 %; Eosinophils # (A) 0.1 k/uL (0-0.7); Eosinophils % (A) 2 %; HCT 27.2 % (34.0-46.0); HGB 9.3 gm/dL (11.4-16.0); Lymphocytes # (A) 1.3 k/uL (1.0-4.8); Lymphocytes % (A) 28 %; MCH 29.9 pg (25.0-35.0); MCHC 34.1 g/dL (31.0-37.0); MCV 87.8 fL (80.0-100.0); Mean Platelet Volume 7.9; Monocytes # (A) 0.2 k/uL (0-1.0); Monocytes % (A) 5 %; Neutrophils # (A) 2.8 k/uL (1.3-7.7); Neutrophils % (A) 63 %; Platelet Count 140 k/uL (150-450); RDW 14.5 % (11.5-15.5); WBC 4.5 k/uL (3.8-10.6)
[2020-02-04 10:13] LABS: Calcium 8.6 mg/dL (8.4-10.2); Potassium 4.3 mmol/L (3.5-5.1)
[2020-02-04] MEDS ORDERED: SCOPOLAMINE 1.5MG/72HR PATCH TRANSDERM ONE (14:38)
[2020-02-04] MEDS ORDERED: MIDAZOLAM 2 MG/2 ML VIAL IV PRN (14:38)
[2020-02-04] MEDS ORDERED: DEXAMETHASONE SOD PHOSPHATE 4 MG/ML 1 ML VIAL IV ONE (14:38)
[2020-02-04] MEDS ORDERED: ONDANSETRON 4 MG/2 ML VIAL IVP ONE (14:38)
[2020-02-04] MEDS ORDERED: IV FLUID CONTINUATION 200 ML IV ONE (14:40)
[2020-02-04] MEDS ORDERED: LACTATED RINGERS 1,000 ML IV ONE ×3 (16:00→20:19)
--- NOTE | 2020-02-04 16:40 | P.PN ---
Subjective Progress Note Date: 02/04/20 This is a 44-year-old female who was recently admitted with an elevated creatinine is patient was slated to have surgery with Dr. Negron and is being closely monitored. Patient is scheduled to undergo lumbar decompression and fusion at the L4/5 for spondylolisthesis and spinal stenosis with chronic low ba ck pain and lower extremity radiculopathy. Patient is maintained on IV fluids and will continue at this time and creatinine is trending down and is currently 1.6. Will repeat a.m. labs. Patient is clear for surgery and will be nothing by mouth at midnight. Patient continues to have some back discomfort although states she feels better from yesterday. Patient is up into the bathroom with no reports of dysuria or retention noted. Patient is denying any nausea or vomiting and tolerating diet. No reports of chest pain, shortness of breath, or palpitations noted. Patient remains afebrile. 02/04/2020 Patient is seen and evaluated in follow-up and is currently nothing by mouth as she is scheduled to undergo lumbar decompression and fusion with Dr. Negron today. Patient's creatinine improved and is currently 1.35 with a BUN of 25. Current sodium is 139 and potassium is 4.3. Patient is maintained on gentle IV hydration and will continue at this time. Will repeat a.m. labs and continue to monitor closely. Currently patient has no reports of chest pain, shortness of breath, or palpitations. Patient is afebrile. No reports of nausea or vomiting and patient states she is hungry although is nothing by mouth for the procedure. Surgery scheduled for sometime early this afternoon. Objective - Vital Signs Vital signs: Vital Signs Temp 97.7 F 02/04/20 08:15 Pulse 97 02/04/20 08:15 Resp 20 02/04/20 08:15 BP 167/79 02/04/20 08:15 Pulse Ox 94 L 02/04/20 08:15 Intake & Output 02/03/20 02/04/20 02/04/20 18:59 06:59 18:59 Intake Total 2165 360 Output Total 900 940 600 Balance 1265 -580 -600 Intake: Intake, IV Titration 1625 Amount Sodium Chloride 0.9% 1, 1625 000 ml @ 125 mls/hr IV . Q8H [facility] Rx#:[id number] Oral 540 360 Output: Urine 900 940 600 Other: # Voids 2 2 2 # Bowel Movements 1 - Exam Gen: This is a 44-year-old female sitting up in bed, awake, alert and oriented 3, well-developed, well-nourished. Temp is 97.7F, pulse is 97, respirations are 20, blood pressure is 167/79, oxygen saturation is 94% on room air. HEENT: Head is atraumatic, normocephalic. Pupils equal, round. Sclerae is anicteric. NECK: Supple. No JVD. No lymphadenopathy. No thyromegaly. LUNGS: Diminished breath sounds bilaterally with no wheezes or rhonchi. No intercostal retractions. HEART: S1, S2 are muffled ABDOMEN: Soft. Obese. Bowel sounds are present. No masses. No tenderness. EXTREMITIES: No pedal edema. No calf tenderness. NEUROLOGICAL: Patient is awake, alert and oriented x3. Cranial nerves 2 through 12 are grossly intact. - Labs CBC & Chem 7: 02/04/20 08:51 02/04/20 08:51 Labs: Abnormal Lab Results - Last 24 Hours (Table) 02/04/20 Range/Units 08:51 RBC 3.10 L (3.80-5.40) m/uL Hgb 9.3 L (11.4-16.0) gm/dL Hct 27.2 L (34.0-46.0) % Plt Count 140 L (150-450) k/uL Assessment and Plan Assessment: Acute renal failure with prerenal acute tubular necrosis and dehydration, present on admission Severe degenerative joint disease for surgery today Anemia, normocytic anemia of chronic disease Elevated AST, ALT, mildly History of asthma history of diabetes mellitus type 2 History of deep vein thrombosis GERD hypertension Hyperlipidemia Seizure disorder History of sleep apnea history of bladder surgery History of hysterectomy History of anxiety, bipolar Remote history of nicotine dependence Obesity with a body mass index of 51.2 Full code Recommendations and discussion: Recommend continue with IV fluids and monitor vital signs and labs closely. Creatinine is trending down and is currently 1.35 from 2.16 initially and is cleared for surgery. Will repeat a.m. labs. Continue current medications, management, and symptomatic treatment. Will continue to hold home blood pressure medication and monitor kidney functions closely. Continue DVT prophylaxis and pain management. Patient was seen and evaluated by Dr. Negron and will undergo surgical intervention this afternoon. Further recommendations to follow.
[2020-02-04] MEDS ORDERED: PROPOFOL 10 MG/ML 20 ML VIAL IV ONE (16:46)
[2020-02-04] MEDS ORDERED: PHENYLEPHRINE-0.9% NACL SYG 1 MG/10 ML SYRINGE ONE (16:46)
[2020-02-04] MEDS ORDERED: ROCURONIUM 10 MG/ML (10 ML VIAL) IV ONE (16:46)
[2020-02-04] MEDS ORDERED: LIDOCAINE 1% INJ 10MG/ML (20 ML MDV) ONE (16:46)
[2020-02-04] MEDS ORDERED: fentaNYL (PF) 50 MCG/ML 2 ML AMP ONE (16:46)
[2020-02-04] MEDS ORDERED: MIDAZOLAM 2 MG/2 ML VIAL ONE (16:46)
[2020-02-04] MEDS ORDERED: SUCCINYLCHOLINE CHLORIDE 100 MG/5 ML SYR IV ONE (16:46)
[2020-02-04] MEDS ORDERED: KETOROLAC 15 MG/ML 1 ML VIAL ONE (16:46)
[2020-02-04] MEDS ORDERED: PHENYLEPHRINE-0.9% NACL SYG 1,000 MCG/10 ML SYRINGE ONE (16:46)
[2020-02-04] MEDS ORDERED: ceFAZolin 1,000 MG VIAL IVPB ONE ×2 (16:51→17:36)
[2020-02-04] MEDS ORDERED: BUPIVACAIN-EPI 0.5%-1:200,000 30 ML VIAL SQ ONE (17:35)
[2020-02-04] MEDS ORDERED: GELATIN SPONGE,ABSORB (LARGE) 1 EACH SPONGE TOPICAL ONE (17:35)
[2020-02-04] MEDS ORDERED: THROMBIN (BOVINE) 5,000 UNIT VIAL TOPICAL ONE (17:35)
[2020-02-04] MEDS ORDERED: ONDANSETRON 4 MG/2 ML VIAL IVP PRN (20:17)
[2020-02-04] MEDS ORDERED: BENZOCAINE/MENTHOL LOZENG 1 EACH LOZENGE MUCOUS MEM PRN (20:17)
[2020-02-04] MEDS ORDERED: HYDROcodone/APAP 5-325MG 1 EACH TAB PO PRN (20:17)
[2020-02-04] MEDS ORDERED: HYDROmorphone 0.5 MG/0.5 ML SYRINGE IVP PRN (20:17)
--- NOTE | 2020-02-04 20:25 | P.OP ---
Date of Procedure: 02/04/20 Preoperative Diagnosis: Dynamic grade 3 spondylolisthesis L4 5, spinal stenosis L4 5, lower extremity radiculopathy, low back pain, spondylolysis Postoperative Diagnosis: Same Anesthesia: GETA Pathology: none sent Condition: stable Disposition: PACU Description of Procedure: DESCRIPTION OF PROCEDURE(S): BRIEF OPERATIVE NOTE Preoperative Diagnosis: Dynamic grade 3 spondylolisthesis L4 5, spinal stenosis L4 5, lower extremity radiculopathy, low back pain, spondylolysis Postoperative Diagnosis: Same Procedure: Laminectomy and decompression L4 [address] navigation aided Minimally invasive Posterior lateral decompression and fusion L4 5 Minimally invasive Transforaminal lumbar interbody fusion for a 360 fusion L4 5 Discectomy for decompression L4 5 Placement of interbody graft L4 5 Use of computer navigation for fusion Local autogenous bone grafting Aspiration of bone marrow from the vertebral body pedicle from L4 on the right Use of bone graft extenders Surgeon: Dr. Negron Manager Truck: Gabi AVENDANO who is present throughout the entire the case persistence during positioning, dissection, exposure, visualization, and all crucial elements of the case as well as closure. Anesthesia: General anesthesia Estimated blood loss: Approximately 300 mL Complications: None apparent Components implanted: K2M minimally invasive [place] pedicle screw system withscrews measuring 6.5 mm in diameter to rods one [place] interbody cage with 10 mL of osteo amp bio4 bone graft substitute and 30 mL of the BX bone fibers to supplement the local autogenous bone graft and bone marrow aspirate Disposition: To recovery room in good stable condition. OPERATIVE INDICATIONS The patient has had severe issues at their lower extremity in her lower back over the past several years with significant worsening over the past several months. Over the past few months the patient had pain at her back and her bilateral lower extremity. The patient is having severe radicular symptoms at her bilateral lower extremity with weakness. The patient is having significant pain in her back. They are unable to obtain any comfort. We did aggressive conservative treatment with medications therapy and interventional pain management however she was not having any relief. The patient also showed evidence of a significant grade 3 listhesis at L4 5 with dynamic instability. The patient has been through conservative treatment. We discussed various treatment options including surgery, and the patient wishes to proceed with surgery We discussed the risk, patient's alternatives and benefits of surgery including but not limited to, risk of bleeding risk of infection, risk of need for further surgery, risk of decreased, loss of motion, muscle function, malunion nonunion, hardware failure, nerve damage, paralysis, heart attack, blindness and . They understood issues with the current pandemic and the possibility of exposure. The patient had preoperative medical evaluation and was found to have renal insufficiency. She had to be brought into the hospital to treat her acute renal insufficiency and had good stabilization with medical management. She was found have correction of her renal his insufficiency and good stabilization of her renal function and medicine felt that she was in good stable condition for clearance for her surgical procedure. OPERATIVE SUMMARY After discussing all the risks, patient alternatives and benefits at length, the patient elected to proceed with surgical intervention, signed informed consent, and presented for their procedure. The patient was seen and examined in the preoperative holding area and the surgical site was marked. The patient was given antibiotics and brought to the operating room. The patient was sedated and intubated by anesthesia in standard fashion. The patient was positioned on to the operating room table in a prone position on the appropriate frame which was well-padded and well molded. We were careful to pad any bony prominences and pressure points. We were careful to maintain the patient's cervical spine and good neutral alignment and position throughout. The patient was prepped and draped in a normal standard fashion. An appropriate timeout and keystone protocol performed. We were able to proceed with the surgery. The local wound area was infiltrated with local anesthetic. Over the right iliac crest I was able to make small stab incisions and establish a guidepin screw fixation to the iliac crest 2 on the right. I was able place the computer referencing device over the guidepins to establish an appropriate reference point for the Ziem CT navigation. We then were able to place patient in an appropriate drape and do a navigation spin for visualization and 3-D reconstruction of the lumbar spine. I was able utilize C-arm guidance and navigation to establish appropriate position over the pedicles bilaterally at the appropriate levels of L4 and L5 . Her listhesis at L4 5 was obvious and had some correction with her positioning. With the appropriate levels confirmed was able to make small stab incisions over the appropriate pedicle sites bilaterally. Utilizing the computer navigation device I was able to establish bony landmarks at the right iliac crest for a bony reference point for the navigation device. I was able to establish a [place]sh[place] needle over the lateral aspect of the pedicle and advanced the trocar into the pedicle being careful not to breech superiorly inferiorly medially or laterally using computer navigation device. Position was confirmed regularly with AP and lateral images on C-arm and with the computer navigation device at the appropriate levels bilaterally at L4 and L5. I was able to establish the trocar into the pedicle appropriately into the posterior aspect of the vertebral body bilaterally at the appropriate levels. This was done at each of the pedicle positions and each of the vertebrae. At the superior vertebrae I was able to take approximately 25 mL of bone aspiration for use later in the case to supplement the allograft and autograft bone. I was able place the guidewire into the trocar and into the vertebral body appropriately under C-arm guidance. Dissection was taken down over the wire to the appropriate starting position for the screw placed. The appropriate length screw was chosen, threaded over the guidewire and screwed appropriately into the pedicle and vertebral body under C-arm guidance in excellent alignment and position with good bony purchase. This is done at each of the screw sites at the appropriate levels at L4 and L5. With the screws intact I extended the incision to connect the screw hole sites on the most symptomatic side on the left. I dissected down to establish access over the pars and lamina to the base of the spinous process. I was able to expose the facet joint. The capsule the facet was taken down and showed some facet arthrosis at the joint. I was able to use a combination of curettes and Kerrison rongeurs and a high-speed drill to take down the facet joint and do a facetectomy. I was able get excellent foraminal decompression and central decompression with undermining across midline to perform a laminectomy centrally and contralaterally. As able get good central decompression. The ligamentum flavum was taken down to further decompress centrally and at bilateral neural foramen. I was able to expose the disc space and visualize the traversing nerve root. Note was made of some disc protrusion and disc herniation that was abutting the traversing nerve root at the level causing further compression of the nerve root. I was able to establish a annulotomy at the appropriate level protecting soft tissue and neural structures. Note was made of some disc desiccation at the disc. I performed a complete discectomy with accommodation of curettes and rasps and scrapers. I was able get good endplate preparation at the disc space of L4 5. I sized for the appropriate size interbody spacer protecting the soft tissue and neural structures. The wound was copiously irrigated and suctioned dry. There is no evidence of any dural tear or leak. I was able to pack the disc space with local autogenous bone graft as well as a small amount of bone graft which was also placed into the interbody cage itself. Protecting the soft tissue structures and neural structures I was able place t he interbody cage in good alignment and good position with good fit and fill at the interbody space. Position was confirmed with C-arm guidance. Good hemostasis maintained. There is no evidence of any dural tear or leak. The wound was irrigated and suctioned dry. With the hardware intact, intraoperative C-arm imaging was again taken which showed good alignment and position of the hardware at the appropriate levels. We were then able to measure, contour and place the rods and appropriate hardware bilaterally. I was able to place capcrews, tighten them down, and torque them with the torque screwdriver appropriately. With this intact I was able to place the local autogenous bone graft with additional bone graft enhancer as necessary into the posterior lateral gutters over the decorticated transverse processes and facet joints on the contralateral side. The remainder of the bone graft was placed over the facet joint on the contralateral side after taking down the facet joint capsule and drilling around the site of the lysis as well and putting bone graft across that space. With the bone graft intact, a stable construct, and good decompression at the appropriate levels, we were able to proceed with closure. Good hemostasis was maintained. There is no evidence of dural tear or leak. The fascia was closed for a watertight closure. he subcuticular tissue was closed with absorbable suture. The wound was cleaned and dried and dressed with the appropriate dressing. The drapes were broken down. The patient was gently rolled back onto their hospital bed being careful to maintain their cervical spine and good neutral alignment and position. They were woken up by anesthesia, extubated, and brought to the recovery room in good stable condition. The patient will be admitted to the hospital for appropriate postoperative care, medical management and monitoring. We will continue to follow them closely about the postoperative course.
[2020-02-04] MEDS ORDERED: fentaNYL (PF) 50 MCG/ML 2 ML AMP IVP ONE (20:47)
[2020-02-04] MEDS: HYDROmorphone 0.5 MG/0.5 ML SYRINGE IVP PRN ×2 (20:54→21:03)
[2020-02-04] MEDS ORDERED: diphenhydrAMINE 50 MG/ML 1 ML VIAL IVP ONE (20:55)
[2020-02-04] MEDS: HYDROmorphone 1 MG/ML 1 ML SYRINGE IVP PRN (22:17)
[2020-02-04] MEDS: PRAZOSIN 1 MG CAP PO SCH (22:20)
[2020-02-04] MEDS: LACTATED RINGERS 1,000 ML IV SCH (22:37)
[2020-02-05] MEDS ORDERED: ceFAZolin 3 GM in SODIUM CHLORIDE 0.9% 100 ML IVPB SCH ×2
[2020-02-05] MEDS: HYDROcodone/APAP 5-325MG 1 EACH TAB PO PRN ×5 (01:38→23:08)
[2020-02-05] MEDS: HYDROmorphone 1 MG/ML 1 ML SYRINGE IVP PRN (02:53)
[2020-02-05] MEDS: PANTOPRAZOLE 40 MG TABLET PO SCH (06:31)
--- NOTE | 2020-02-05 07:11 | FL ---
EXAMINATION TYPE: FL guidance operating room, XR lumbar spine 2 or 3V DATE OF EXAM: 02/04/2020 CLINICAL HISTORY: Low back pain. TECHNIQUE: Fluoroscopy. Intraoperative 2 views lumbar spine. COMPARISON: MRI lumbar spine August 30, 2016 FINDINGS: Fluoroscopic guidance was provided during L4-L5 fusion procedure performed by spinal surge on. A total of 33 seconds of fluoroscopic time was utilized during the procedure and two spot intrao perative images are acquired. Intraoperative images obtained show posterior interpedicular rods and screws and metallic disc materi al placed at 4 L5 level where there is stable grade 1 anterolisthesis after hardware placement. IMPRESSION: As Above.
[2020-02-05] MEDS: NITROFURANTOIN MONOHYD/M-CRYST 100 MG CAP PO SCH ×2 (08:01→20:33)
[2020-02-05] MEDS: GABAPENTIN 400 MG CAP PO SCH ×3 (08:01→20:57)
[2020-02-05] MEDS: FLUTICASONE 50MCG/SPRAY NASAL 16GM EA NOSTRIL SCH (08:01)
[2020-02-05] MEDS: OXYBUTYNIN 10 MG TAB.ER.24 PO SCH (08:01)
[2020-02-05] MEDS: ATORVASTATIN 40 MG TAB PO SCH (08:01)
[2020-02-05] MEDS: MULTIVITAMINS, THERA 1 EACH TAB PO SCH (08:01)
[2020-02-05] MEDS: HEPARIN SODIUM,PORCINE 5,000 UNIT/ML 1 ML VIAL SQ SCH ×2 (08:01→20:33)
[2020-02-05] MEDS: SENNOSIDES-DOCUSATE SODIUM 1 EACH TAB PO SCH (08:01)
[2020-02-05] MEDS: OXcarbazepine 300 MG TAB PO SCH ×2 (08:02→20:33)
[2020-02-05] MEDS: NON FORMULARY DRUG (Cariprazine Hcl [Vraylar] 4.5 MG Capsule) PO SCH (08:09)
[2020-02-05] MEDS: METOPROLOL SUCCINATE (ER) 50 MG TAB.ER.24H PO SCH (08:09)
[2020-02-05] MEDS: amLODIPine 5 MG TAB PO SCH (08:39)
--- NOTE | 2020-02-05 08:40 | XR ---
EXAMINATION TYPE: XR chest 1V portable DATE OF EXAM: 02/05/2020 CLINICAL HISTORY: Difficulty breathing progress study. TECHNIQUE: Single AP portable upright view of the chest is obtained. COMPARISON: Chest x-ray from January 08, 2020 FINDINGS: Lobe lung volumes redemonstrated. No new suspicious focal airspace opacity, pleural effusi on, or pneumothorax seen bilaterally. Cardiac silhouette size stable and within normal limits. Underl lisa scoliosis redemonstrated. IMPRESSION: No acute process. No significant change from prior.
--- NOTE | 2020-02-05 08:55 | P.PN ---
Progress Note - Text Progress Note Date: 02/05/20 Orthopedic Spine: History of present illness: Patient is a pleasant 44-year-old female who is seen and examined at the bedside following posterior lateral decompression and fusion performed yesterday. Patient was originally scheduled for surgical intervention, 02/03/2020, surgery was delayed due to acute renal insufficiency. She was cleared for surgery by medicine. Patient states they are doing well postsurgically in regards to her lumbar spine. She has been able to ambulate the hallways multiple times. She is not currently complaining of any lower extremity weakness or radiculopathy bilaterally. She states her surgical sites feel well. Her back pain has been adequately controlled. Most notably, she is having some chest pain this morning where she states she feels like someone is sitting on her chest. Nursing states they have contacted medicine. EKG, chest x-ray, and troponins have been ordered. Currently does not complain of nausea, vomiting, fever, or chills. Patient states pain has been adequately controlled. Patient is eating and voiding freely without difficulty. [place] catheter has been discontinued. Patient's past medical history includes diabetes mellitus type 2, history of DVT, hypertension, hyperlipidemia, seizure disorder, obesity, history of asthma, chronic anemia and acute renal failure. Physical Exam Lumbar Fusion: Status post surgical day number Patient is awake, alert, and oriented 3 Vital signs stable Good chest excursion with deep inspiration and expiration Abdomen soft nontender Dorsiflexion, plantarflexion, and extensor hallucis longus positive sustained bilaterally No signs or symptoms of DVT; no calf pain; pneumatic cuffs intact bilateral lower extremities Dressing is clean, dry, and intact; no erythema, purulence, or signs of infection Hemovac drain well secure Neurovascularly intact bilaterally lower extremities Assessment: Status post L4-5 minimal invasive posterior lateral decompression and fusion and transforaminal lumbar interbody fusion L4-5 dynamic grade 3 spondylolisthesis L4-5 spinal canal stenosis Lumbar spondylolysis Low back pain and lower extremity radiculopathy Shortness of breath Chest pain Diabetes mellitus type 2 History of DVT Hypertension Hyperlipidemia Seizure disorder Obesity History of asthma Chronic anemia Acute renal failure Plan: 1. Ambulate as tolerated; work with Physical Therapy to increase mobilization 2. Continue pain control with IV and oral medications; we will plan to wean the patient off of IV pain medication in anticipation for discharge home as early as tomorrow, 12/07/2019, pending clearance by [facility] has been reviewed today, 02/05/2020, with an Overall Overdose Risk Score of 110. An "Opiod Start Talking" Form has been signed and placed in the patient's chart. A prescription has been written for Denair 5 mg/325 mg 1-2 tabs every 6 hours as needed for pain, dispensed #56. Avoid anti-inflammatory medications over the next 6 weeks postoperatively. 3. Dressings to remain intact; patient may shower with dressing is intact; dressings to remain intact over the next 3 days postoperatively 4. Medical management can continue to manage patient for patient's other medical diagnoses; patient currently undergoing further workup for shortness of breath and chest pain 5. We will continue to follow the patient closely 6. Patient can follow-up with Nilo Montilla PA-C or Dr. Yoni Negron at [facility] in 2-3 weeks following discharge
[2020-02-05 09:41] LABS: Basophils % (A) 0 %; Eosinophils % (A) 1 %; HCT 23.4 % (34.0-46.0); HGB 7.9 gm/dL (11.4-16.0); Lymphocytes # (A) 0.8 k/uL (1.0-4.8); Lymphocytes % (A) 10 %; MCH 30.2 pg (25.0-35.0); MCHC 33.9 g/dL (31.0-37.0); MCV 89.1 fL (80.0-100.0); Mean Platelet Volume 7.4; Monocytes # (A) 0.5 k/uL (0-1.0); Monocytes % (A) 5 %; Neutrophils # (A) 7.2 k/uL (1.3-7.7); Neutrophils % (A) 83 %; Platelet Count 150 k/uL (150-450); RBC 2.63 m/uL (3.80-5.40); RDW 14.8 % (11.5-15.5); WBC 8.6 k/uL (3.8-10.6)
[2020-02-05 09:55] LABS: Calcium 8.1 mg/dL (8.4-10.2); Potassium 4.5 mmol/L (3.5-5.1)
[2020-02-05] MEDS: SODIUM CHLORIDE 0.9% 1,000 ML IV SCH (09:55)
[2020-02-05] MEDS ORDERED: IPRATROPIUM-ALBUTEROL 3 ML NEB INHALATION PRN (10:44)
[2020-02-05] MEDS: LACTATED RINGERS 1,000 ML IV SCH (10:51)
[2020-02-05] MEDS: IPRATROPIUM-ALBUTEROL 3 ML NEB INHALATION SCH ×3 (11:16→18:58)
--- NOTE | 2020-02-05 13:06 | P.PN ---
Subjective Progress Note Date: 02/05/20 This is a 44-year-old female who was recently admitted with an elevated creatinine is patient was slated to have surgery with Dr. Negron and is being closely monitored. Patient is scheduled to undergo lumbar decompression and fusion at the L4/5 for spondylolisthesis and spinal stenosis with chronic low ba ck pain and lower extremity radiculopathy. Patient is maintained on IV fluids and will continue at this time and creatinine is trending down and is currently 1.6. Will repeat a.m. labs. Patient is clear for surgery and will be nothing by mouth at midnight. Patient continues to have some back discomfort although states she feels better from yesterday. Patient is up into the bathroom with no reports of dysuria or retention noted. Patient is denying any nausea or vomiting and tolerating diet. No reports of chest pain, shortness of breath, or palpitations noted. Patient remains afebrile. 02/04/2020 Patient is seen and evaluated in follow-up and is currently nothing by mouth as she is scheduled to undergo lumbar decompression and fusion with Dr. Negron today. Patient's creatinine improved and is currently 1.35 with a BUN of 25. Current sodium is 139 and potassium is 4.3. Patient is maintained on gentle IV hydration and will continue at this time. Will repeat a.m. labs and continue to monitor closely. Currently patient has no reports of chest pain, shortness of breath, or palpitations. Patient is afebrile. No reports of nausea or vomiting and patient states she is hungry although is nothing by mouth for the procedure. Surgery scheduled for sometime early this afternoon. 02/05/2020 Patient is seen and evaluated in follow-up status post L4 to 5 posterior lateral decompression and fusion and is being closely monitored. Patient's surgical dressings are dry and intact and patient states her pain is being controlled. Patient is having some shortness of breath and chest heaviness and a troponin and EKG along with chest x-ray have been ordered. Chest x-ray shows no acute process, troponin was negative. Patient is currently on 3 L of oxygen via nasal cannula and discussed with nursing staff about weaning as she does not wear oxygen in the outpatient setting. Patient does have incentive spirometer at bedside and instructed to continue using at least 10 times every hour while awake. Patient also to increase activity as tolerated. Patient states she does have a history of acid reflux and was taking Zantac in the past although has not been experiencing much acid reflux lately and discontinued the Zantac. Protonix 40 mg IV push twice daily will be added. Per nursing staff patient has been up and walking the halls with no difficulty. Creatinine slightly elevated at 1.57 with a BUN of 23 and will continue on gentle IV hydration. Will repeat a.m. labs and continue to monitor closely. Review of systems: Constitutional: No reports of fatigue, fever, or chills Cardiovascular: Reports chest heaviness with no reports of palpitations Respiratory: Reports mild shortness of breath with no reports of cough GI: No reports of nausea, vomiting, or diarrhea : No reports of dysuria or retention Neurovascular: No reports of weakness or numbness All medications have been reviewed Objective - Vital Signs Vital signs: Vital Signs Temp 98.6 F 02/05/20 08:23 Pulse 113 H 02/05/20 07:50 Resp 22 02/05/20 08:23 BP 110/71 02/05/20 08:23 Pulse Ox 96 02/05/20 07:50 Intake & Output 02/04/20 02/05/20 02/05/20 18:59 06:59 18:59 Intake Total 2000 1680 Output Total 900 1000 Balance 1100 680 Intake: IV 2000 600 Oral 1080 Output: Urine 900 900 Estimated Blood Loss 100 Other: Voiding Method Indwelling Catheter # Voids 2 1 - Exam Gen: This is a 44-year-old female sitting up in bed, awake, alert and oriented 3, well-developed, well-nourished. Temp is 98.6F, pulse is 92, respirations are 22, blood pressure is 110/71, oxygen saturation is 97% on 3 L via nasal cannula. HEENT: Head is atraumatic, normocephalic. Pupils equal, round. Sclerae is anicteric. NECK: Supple. No JVD. No lymphadenopathy. No thyromegaly. LUNGS: Diminished breath sounds bilaterally with no wheezes or rhonchi. No intercostal retractions. HEART: S1, S2 are muffled ABDOMEN: Soft. Obese. Bowel sounds are present. No masses. No tenderness. EXTREMITIES: No pedal edema. No calf tenderness. NEUROLOGICAL: Patient is awake, alert and oriented x3. Cranial nerves 2 through 12 are grossly intact. - Labs CBC & Chem 7: 02/05/20 08:56 02/05/20 08:56 Labs: Abnormal Lab Results - Last 24 Hours (Table) 02/04/20 02/04/20 Range/Units 08:51 08:51 RBC 3.10 L (3.80-5.40) m/uL Hgb 9.3 L (11.4-16.0) gm/dL Hct 27.2 L (34.0-46.0) % Plt Count 140 L (150-450) k/uL Chloride 109 H (98-107) mmol/L BUN 25 H (7-17) mg/dL Creatinine 1.35 H (0.52-1.04) mg/dL Glucose 118 H (74-99) mg/dL Assessment and Plan Assessment: Acute renal failure with prerenal acute tubular necrosis and dehydration, present on admission Severe degenerative joint disease for surgery Status post laminectomy and decompression of the L4-5 Anemia, normocytic anemia of chronic disease Elevated AST, ALT, mildly History of asthma history of diabetes mellitus type 2 History of deep vein thrombosis GERD hypertension Hyperlipidemia Seizure disorder History of sleep apnea history of bladder surgery History of hysterectomy History of anxiety, bipolar Remote history of nicotine dependence Obesity with a body mass index of 51.2 Full code Recommendations and discussion: Recommend continue with IV fluids and monitor vital signs and labs closely. Creatinine is slightly elevated at 1.5 and will continue with IV hydration and repeat labs in the morning. Patient underwent surgery with Dr. Negron for laminectomy and decompression of the L4/5 yesterday and dressings are dry and intact. Patient has been up and walking the halls and instructed to increase activity as tolerated. Patient is passing gas but no reports of bowel movements at this time. Patient is voiding with no difficulties and Heaton catheter has been removed. Chest x-ray was done showing no acute process is patient was having some chest heaviness and shortness of breath this morning. EKG was done and troponin was negative. She is currently on 3 L via nasal cannula although oxygen saturations are 98%. Discussed with nursing staff about weaning FiO2 as she does not normally require any oxygen outpatient. Instructed the patient to continue with incentive spirometer at least 10 times every hour while awake. Continue current medications, management, and symptomatic treatment. Will co ntinue to hold home blood pressure medication and monitor kidney functions closely. Continue DVT prophylaxis and pain management. Further recommendations to follow.
[2020-02-05] MEDS ORDERED: ACETAMINOPHEN TAB 325 MG TAB PO PRN (20:22)
[2020-02-05] MEDS: PANTOPRAZOLE 40 MG/10 ML VIAL IVP SCH (20:30)
[2020-02-05] MEDS: PRAZOSIN 1 MG CAP PO SCH (20:33)
[2020-02-05 23:22] LABS: Appearance,Urine Cloudy (Clear); Bacteria,Urine Few /hpf; Bilirubin,Urine Negative (Negative); Blood,Urine Negative (Negative); Color,Urine Yellow; Glucose,Urine (UA) 2+ (Negative); Ketones,Urine Negative (Negative); Leukocyte Esterase,Urine Moderate (Negative); Mucus,Urine Rare /hpf; Nitrite,Urine Negative (Negative); PH, Urine 5.5 (5.0-8.0); Protein,Urine Trace (Negative); RBC,Urine 3 /hpf (0-5); Specific Gravity,Urine 1.021 (1.001-1.035); Squamous Epithelial Cell,Urine 13 /hpf (0-4); Urobilinogen,Urine <2.0 mg/dL (<2.0); WBC,Urine 18 /hpf (0-5)
[2020-02-06] MEDS ORDERED: FUROSEMIDE 10 MG/ML 2 ML VIAL IV STA (00:18)
[2020-02-06] MEDS: SODIUM CHLORIDE 0.9% 1,000 ML IV SCH ×2 (00:34→21:21)
[2020-02-06] MEDS: HYDROmorphone 1 MG/ML 1 ML SYRINGE IVP PRN (01:47)
[2020-02-06] MEDS: HYDROcodone/APAP 5-325MG 1 EACH TAB PO PRN ×4 (05:43→21:34)
[2020-02-06 07:29] LABS: Basophils % (A) 0 %; Eosinophils # (A) 0.1 k/uL (0-0.7); Eosinophils % (A) 1 %; HCT 20.5 % (34.0-46.0); HGB 7.2 gm/dL (11.4-16.0); Lymphocytes % (A) 12 %; MCH 30.7 pg (25.0-35.0); MCV 87.6 fL (80.0-100.0); Mean Platelet Volume 7.6; Monocytes # (A) 0.5 k/uL (0-1.0); Monocytes % (A) 5 %; Neutrophils % (A) 80 %; Platelet Count 122 k/uL (150-450); Poikilocytosis Slight; RBC 2.34 m/uL (3.80-5.40); WBC 8.7 k/uL (3.8-10.6)
[2020-02-06 07:38] LABS: Calcium 7.8 mg/dL (8.4-10.2); Potassium 3.9 mmol/L (3.5-5.1)
[2020-02-06] MEDS: IPRATROPIUM-ALBUTEROL 3 ML NEB INHALATION SCH ×3 (08:24→18:47)
[2020-02-06] MEDS: PANTOPRAZOLE 40 MG/10 ML VIAL IVP SCH ×2 (09:10→21:26)
[2020-02-06] MEDS: SENNOSIDES-DOCUSATE SODIUM 1 EACH TAB PO SCH (09:10)
[2020-02-06] MEDS: GABAPENTIN 400 MG CAP PO SCH ×3 (09:11→21:27)
[2020-02-06] MEDS: MULTIVITAMINS, THERA 1 EACH TAB PO SCH (09:11)
[2020-02-06] MEDS: HEPARIN SODIUM,PORCINE 5,000 UNIT/ML 1 ML VIAL SQ SCH ×2 (09:11→21:26)
[2020-02-06] MEDS: OXYBUTYNIN 10 MG TAB.ER.24 PO SCH (09:12)
[2020-02-06] MEDS: METOPROLOL SUCCINATE (ER) 50 MG TAB.ER.24H PO SCH (09:12)
[2020-02-06] MEDS: NITROFURANTOIN MONOHYD/M-CRYST 100 MG CAP PO SCH (09:12)
[2020-02-06] MEDS: amLODIPine 5 MG TAB PO SCH (09:12)
[2020-02-06] MEDS: OXcarbazepine 300 MG TAB PO SCH ×2 (09:13→21:35)
[2020-02-06] MEDS: ATORVASTATIN 40 MG TAB PO SCH ×2 (09:13→10:14)
[2020-02-06] MEDS: NON FORMULARY DRUG (Cariprazine Hcl [Vraylar] 4.5 MG Capsule) PO SCH (09:21)
[2020-02-06] MEDS: FLUTICASONE 50MCG/SPRAY NASAL 16GM EA NOSTRIL SCH (10:13)
--- NOTE | 2020-02-06 11:33 | P.PN ---
Progress Note - Text Progress Note Date: 02/06/20 Postoperative day #2 Patient is seen and examined today at bedside. The patient has some pain around the surgical site as expected. Pain is being controlled with medication. She has been up and around and is feeling good in terms of her back and her legs. She no longer has symmetric and pressure at her chest but she has been having some fevers overnight and this morning. She denies any cough. She denies shortness breath. Physical Exam Afebrile with stable vital signs Abdomen is soft nontender. Chest has good excursion deep and space expiration The incision site is clean dry and intact. No erythema there is no purulence. The dressing is changed is no active drainage. There is no evidence of infection. Extremities have not had neurologic change from prior to surgery. She has sustained dorsal flexion plantar flexion and EHL intact. Calves and thighs were soft nontender without evidence of DVT. Assessment/Plan Postoperative day #2 status post noninvasive decompression and fusion L4 4 5 for her spondylolisthesis with dynamic instability and spinal stenosis. Patient is progressing as expected from the surgery. She feels she is doing very well in terms her back in her lower extremities and she is very happy with her results from her surgery thus far. We will continue to increase the patient's mobilization with therapy. We will continue pain control with oral or IV medications. She has been having fevers up to 101. We are unsure the source as far. It may be some atelectasis and she is encouraged to deep breathing. Medicine is following her. She has obtain cultures. Her Covid test from February 01 was negative. Her troponins were negative yesterday. With her fevers we will have to continue to follow her for at least being able to be afebrile for 24 hours before she'll be discharged. We'll continue to follow patient closely.
[2020-02-06 12:54] LABS: C Reactive Protein 211.3 mg/L (<10.0)
[2020-02-06] MEDS: LACTATED RINGERS 1,000 ML IV SCH (21:20)
--- NOTE | 2020-02-06 21:29 | CT ---
EXAMINATION TYPE: CT chest wo con DATE OF EXAM: 02/06/2020 COMPARISON: None HISTORY: post-op fever CT DLP: 575.3 mGycm Automated exposure control for dose reduction was used. There is mild subsegmental atelectasis right posterior lung base. There is minimal reticular infiltra te right posterior lung apex. There is no suspicious pulmonary mass. Heart size is normal. There is n o pericardial effusion. There is no pleural effusion. Sternum is intact. There is mild thoracic dextroscoliosis. Liver is enlarged and measures at least 21 cm. IMPRESSION: Minimal reticular density at the right lung apex and right lung base consistent with scarring and sub segmental atelectasis. No suspicious pulmonary mass. Hepatomegaly.
[2020-02-06] MEDS: PRAZOSIN 1 MG CAP PO SCH (21:35)
--- NOTE | 2020-02-06 23:12 | P.CONS ---
History of Present Illness - Reason for Consult Consult date: 02/06/20 fever Requesting physician: Richa Hollingsworth - Chief Complaint Fever x 1 day - History of Present Illness Patient is a 44-year-old female admitted to the hospital on February 02, 2020 for management of acute kidney injury and this patient who did have a testing done for planned back surgery and she was noted to have creatinine of 2.5 patient subsequently has been stabilized and her kidney function improve. Patient did have a surgery done on February 04, 2020 in this patient who is status post laminectomy and decompression of L4-5 this patient was afebrile on presentation to the hospital however subsequent started spiking temperature on February 05, 2020 and she did have positive fever all the way through this morning that has prompted this infectious disease consultation patient was also noted to be slightly hypoxic and need for supplemental oxygen chest x-ray completed last night was negative for any acute infiltrate patient is complaining of mild shortness of breath breath he did have very minimal cough which is dry in nature denies having any nausea no vomiting no abdominal pain no diarrhea some urinary frequency minimal burning and denies having any pain to the lumbar spine area patient did have a UA that was mildly positive and the patient was started on Rocephin. Review of Systems Positive point has been mentioned in HPI rest of the systems are negative Past Medical History Past Medical History: Asthma, Diabetes Mellitus, Deep Vein Thrombosis (DVT), GERD/Reflux, Hearing Disorder / Deafness, Hyperlipidemia, Hypertension, Osteoarthritis (OA), Seizure Disorder, Sleep Apnea/CPAP/BIPAP Additional Past Medical History / Comment(s): SEIZURES CHILD, NONE SINCE AGE 15. NO TX FOR DM IN PAST 2-3 YEARS, SINCE WGT LOSS. BORDERLINE HTN, NO RX YET. HX LT ARM DVT X2, WAS ON BCP. "SEEM TO BLEED LONGER NOW." CTS IN MAGDA HANDS, WRISTS; TENDINITIS ARMS/LEGS; NT ARMS/LEGS. DECR HEARING RT EAR. USES CPAP. History of Any Multi-Drug Resistant Organisms: None Reported Past Surgical History: Bladder Surgery, Ear Surgery, Hysterectomy, Orthopedic Surgery Additional Past Surgical History / Comment(s): RT KNEE SURG. BLADDER SLING. BMT. CLEFT PALATE SURGERY. BB REMOVED FROM HEAD. Past Anesthesia/Blood Transfusion Reactions: Family History of Problems w/ Anesthesia, Motion Sickness Additional Past Anesthesia/Blood Transfusion Reaction / Comm: SISTERS HAVE PONV. Past Psychological History: Anxiety, Bipolar Additional Psychological History / Comment(s): HX ATTEMPTED SUICIDE, LAST TEEN. OFF RX FOR SURGERY, FEELS THE RX CAUSES HER INCR BLEEDING. Smoking Status: Never smoker Past Alcohol Use History: None Reported Past Drug Use History: None Reported - Past Family History Mother Family Medical History: Cancer, Deep Vein Thrombosis (DVT), Pulmonary Embolus Father Family Medical History: Deep Vein Thrombosis (DVT), Pulmonary Embolus Additional Family Medical History / Comment(s): RONNIE GERIGHS DISEASE. Medications and Allergies Home Medications Medication Instructions Recorded Confirmed Type Albuterol Inhaler [Ventolin Hfa 2 puff INHALATION RT-Q6H PRN 01/15/20 02/02/20 History Inhaler] Atorvastatin [Lipitor] 40 mg PO DAILY 01/15/20 02/02/20 History Cariprazine HCl [Vraylar] 4.5 mg PO QAM 01/15/20 02/02/20 History OXcarbazepine [Trileptal] 300 mg PO BID 01/15/20 02/02/20 History Oxybutynin Chloride [Oxybutynin 10 mg PO QAM 01/15/20 02/02/20 History Chloride ER] Prazosin HCl 1 mg PO HS 01/15/20 02/02/20 History Prazosin HCl 2 mg PO HS 01/15/20 02/02/20 History amLODIPine BESYLATE 5 mg PO DAILY 01/15/20 02/02/20 History hydroCHLOROthiazide [Hydrodiuril] 25 mg PO DAILY 01/15/20 02/02/20 History lisinopriL 40 mg PO DAILY 01/15/20 02/02/20 History hydrOXYzine HCL [Atarax] 50 mg PO BID PRN 01/29/20 02/02/20 History Fluticasone Nasal [place] [Flonase 1 spray EA NOSTRIL DAILY 02/02/20 02/02/20 History Nasal [place]] Gabapentin [Neurontin] 400 mg PO TID 02/02/20 02/02/20 History Metoprolol Succinate (ER) [Toprol 50 mg PO DAILY 02/02/20 02/02/20 History Xl] Multivitamins, Thera [Multivitamin 1 tab PO DAILY 02/02/20 02/02/20 History (formulary)] Ondansetron Odt [Zofran Odt] 4 mg PO Q12HR PRN 02/02/20 02/02/20 History Hydrocodone/Acetaminophen [Vincent 1 - 2 each PO Q6HR PRN #56 tab 02/05/20 Rx 5-325] Allergies Allergy/AdvReac Type Severity Reaction Status Date / Time aripiprazole [From Abilify] Allergy Swelling Verified 02/04/20 14:46 paroxetine HCl [From Paxil] Allergy Rash/Hives Verified 02/04/20 14:46 quetiapine [From Seroquel] Allergy Rash/Hives Verified 02/04/20 14:46 trazodone Allergy Unknown Verified 02/04/20 14:46 ziprasidone [From Geodon] Allergy Swelling Verified 02/04/20 14:46 Physical Exam Vitals: Vital Signs Temp Pulse Pulse Pulse Pulse Resp BP 02/06/20 19:42 99.6 F 112 H 24 110/63 02/06/20 18:57 103 H 18 02/06/20 18:47 105 H 18 02/06/20 18:15 100.4 F H 02/06/20 17:28 101.2 F H 02/06/20 16:34 99.9 F H 109 H 24 113/72 02/06/20 15:09 98.6 F 02/06/20 14:51 97 24 02/06/20 12:55 100.6 F H 110 H 24 02/06/20 12:19 104 H 16 02/06/20 12:11 102 H 18 02/06/20 11:41 101.1 F H 02/06/20 10:16 101.4 F H 02/06/20 09:00 101.4 F H 115 H 24 02/06/20 08:34 114 H 16 02/06/20 08:25 118 H 18 02/06/20 06:44 101.5 F H 02/06/20 05:42 22 02/06/20 05:40 101.1 F H 24 02/06/20 01:52 101.5 F H 102 H 22 115/62 02/06/20 01:05 101.8 F H 02/05/20 23:54 101.6 F H 102 H BP Pulse Ox 02/06/20 19:42 95 02/06/20 18:57 02/06/20 18:47 95 02/06/20 18:15 02/06/20 17:28 02/06/20 16:34 95 02/06/20 15:09 02/06/20 14:51 97 02/06/20 12:55 101/57 95 02/06/20 12:19 02/06/20 12:11 02/06/20 11:41 02/06/20 10:16 02/06/20 09:00 119/72 93 L 02/06/20 08:34 02/06/20 08:25 02/06/20 06:44 02/06/20 05:42 94 L 02/06/20 05:40 94 L 02/06/20 01:52 93 L 02/06/20 01:05 02/05/20 23:54 92 L Intake and Output 02/06/20 02/06/20 02/07/20 14:59 22:59 06:59 Output Total 350 550 Balance -350 -550 Output: Urine 350 550 Other: Voiding Method Toilet Toilet # Voids 1 GENERAL DESCRIPTION: Middle-aged male lying in bed, no distress. No tachypnea or accessory muscle of respiration use. HEENT: Shows Pallor , no scleral icterus. Oral mucous membrane is dry. NECK: Trachea central, no thyromegaly. LUNGS: Unlabored breathing. Decreased breath sound at the base. No wheeze or crackle. HEART: S1, S2, regular rate and rhythm. ABDOMEN: Soft, no tenderness , guarding or rigidity EXTREMITIES: No edema of feet. SKIN: No rash, no masses palpable. Lumbar surgical site area is currently dressed no cellulitis per surgeon notes no drainage was noticed NEUROLOGICAL: The patient is awake, alert, oriented x3, mood and affect normal. Results CBC & Chem 7: 02/06/20 07:11 02/06/20 07:11 Labs: Abnormal Lab Results - Last 24 Hours (Table) 02/05/20 02/06/20 02/06/20 Range/Units 23:04 07:11 07:11 RBC 2.34 L (3.80-5.40) m/uL Hgb 7.2 L (11.4-16.0) gm/dL Hct 20.5 L (34.0-46.0) % Plt Count 122 L (150-450) k/uL D-Dimer (<0.60) mg/L FEU Sodium 133 L (137-145) mmol/L BUN 19 H (7-17) mg/dL Creatinine 1.37 H (0.52-1.04) mg/dL Glucose 148 H (74-99) mg/dL Calcium 7.8 L (8.4-10.2) mg/dL C-Reactive Protein (<10.0) mg/L Procalcitonin (0.02-0.09) ng/mL Urine Appearance Cloudy H (Clear) Urine Protein Trace H (Negative) Urine Glucose (UA) 2+ H (Negative) Ur Leukocyte Esterase Moderate H (Negative) Urine WBC 18 H (0-5) /hpf Ur Squamous Epith Cells 13 H (0-4) /hpf Urine Bacteria Few H (None) /hpf Urine Mucus Rare H (None) /hpf 02/06/20 02/06/20 02/06/20 Range/Units 12:16 12:16 12:16 RBC (3.80-5.40) m/uL Hgb (11.4-16.0) gm/dL Hct (34.0-46.0) % Plt Count (150-450) k/uL D-Dimer 1.81 H (<0.60) mg/L FEU Sodium (137-145) mmol/L BUN (7-17) mg/dL Creatinine (0.52-1.04) mg/dL Glucose (74-99) mg/dL Calcium (8.4-10.2) mg/dL C-Reactive Protein 211.3 H (<10.0) mg/L Procalcitonin 0.21 H (0.02-0.09) ng/mL Urine Appearance (Clear) Urine Protein (Negative) Urine Glucose (UA) (Negative) Ur Leukocyte Esterase (Negative) Urine WBC (0-5) /hpf Ur Squamous Epith Cells (0-4) /hpf Urine Bacteria (None) /hpf Urine Mucus (None) /hpf Microbiology - Last 24 Hours (Table) 02/05/20 20:43 Blood Culture - Preliminary Blood No Growth after 24 hours 02/05/20 20:37 Blood Culture - Preliminary Blood No Growth after 24 hours 02/05/20 23:04 Urine Culture - Preliminary Urine,Clean Catch Assessment and Plan Assessment: 1-patient with a fever in this patient who is postop L4-5 laminectomy and decompression surgery patient currently do not have any symptoms referable to her lumbar spine area she did have she did have urinary symptoms and is also complaining of shortness of breath and cough with concern for possible pneumonia either viral or bacterial any UTI to be the likely source of her fever (1) Fever Current Visit: Yes Status: Acute Code(s): R50.9 - FEVER, UNSPECIFIED SNOMED Code(s): 850327179 Plan: 1-we will obtain CT of the chest without contrast and the patient did have abnormal kidney function on admission to the hospital to rule out pneumonia or groundglass opacities seen with Covid infection 2-check influenza and bronson PCR 3-we will check CRP procalcitonin LDH and D-dimer 4-continue with Rocephin 1 g daily We will follow on clinical condition and cultures to further adjust medication if needed Thank you for this consultation we will follow the patient along with you Time with Patient: Greater than 30
[2020-02-07] MEDS: IPRATROPIUM-ALBUTEROL 3 ML NEB INHALATION SCH ×3 (08:05→20:32)
[2020-02-07] MEDS: HYDROcodone/APAP 5-325MG 1 EACH TAB PO PRN ×4 (08:09→23:23)
[2020-02-07] MEDS: HEPARIN SODIUM,PORCINE 5,000 UNIT/ML 1 ML VIAL SQ SCH ×2 (09:28→20:21)
[2020-02-07] MEDS: PANTOPRAZOLE 40 MG/10 ML VIAL IVP SCH ×2 (09:28→20:21)
[2020-02-07] MEDS: amLODIPine 5 MG TAB PO SCH (09:29)
[2020-02-07] MEDS: OXYBUTYNIN 10 MG TAB.ER.24 PO SCH (09:29)
[2020-02-07] MEDS: MULTIVITAMINS, THERA 1 EACH TAB PO SCH (09:29)
[2020-02-07] MEDS: SENNOSIDES-DOCUSATE SODIUM 1 EACH TAB PO SCH (09:29)
[2020-02-07] MEDS: NON FORMULARY DRUG (Cariprazine Hcl [Vraylar] 4.5 MG Capsule) PO SCH (09:30)
[2020-02-07] MEDS: METOPROLOL SUCCINATE (ER) 50 MG TAB.ER.24H PO SCH (09:33)
[2020-02-07] MEDS: OXcarbazepine 300 MG TAB PO SCH ×2 (09:33→20:21)
[2020-02-07] MEDS: GABAPENTIN 400 MG CAP PO SCH ×3 (09:34→21:25)
[2020-02-07] MEDS: FLUTICASONE 50MCG/SPRAY NASAL 16GM EA NOSTRIL SCH (10:21)
--- NOTE | 2020-02-07 10:49 | P.PN ---
Subjective Progress Note Date: 02/06/20 Principal diagnosis: acute kidney injury Fever This is a 44-year-old female who was recently admitted with an elevated creatinine is patient was slated to have surgery with Dr. Negron and is being closely monitored. Patient is scheduled to undergo lumbar decompression and fusion at the L4/5 for spondylolisthesis and spinal stenosis with chronic low back pain and lower extremity radiculopathy. Patient is maintained on IV fluids and will continue at this time and creatinine is trending down and is currently 1.6. Will repeat a.m. labs. Patient is clear for surgery and will be nothing by mouth at midnight. Patient continues to have some back discomfort although states she feels better from yesterday. Patient is up into the bathroom with no reports of dysuria or retention noted. Patient is denying any nausea or vomiting and tolerating diet. No reports of chest pain, shortness of breath, or palpitations noted. Patient remains afebrile. 02/04/2020 Patient is seen and evaluated in follow-up and is currently nothing by mouth as she is scheduled to undergo lumbar decompression and fusion with Dr. Negron today. Patient's creatinine improved and is currently 1.35 with a BUN of 25. Current sodium is 139 and potassium is 4.3. Patient is maintained on gentle IV hydration and will continue at this time. Will repeat a.m. labs and continue to monitor closely. Currently patient has no reports of chest pain, shortness of breath, or palpitations. Patient is afebrile. No reports of nausea or vomiting and patient states she is hungry although is nothing by mouth for the procedure. Surgery scheduled for sometime early this afternoon. 02/05/2020 Patient is seen and evaluated in follow-up status post L4 to 5 posterior lateral decompression and fusion and is being closely monitored. Patient's surgical dressings are dry and intact and patient states her pain is being controlled. Patient is having some shortness of breath and chest heaviness and a troponin and EKG along with chest x-ray have been ordered. Chest x-ray shows no acute process, troponin was negative. Patient is currently on 3 L of oxygen via nasal cannula and discussed with nursing staff about weaning as she does not wear oxygen in the outpatient setting. Patient does have incentive spirometer at bedside and instructed to continue using at least 10 times every hour while awake. Patient also to increase activity as tolerated. Patient states she does have a history of acid reflux and was taking Zantac in the past although has not been experiencing much acid reflux lately and discontinued the Zantac. Protonix 40 mg IV push twice daily will be added. Per nursing staff patient has been up and walking the halls with no difficulty. Creatinine slightly elevated at 1.57 with a BUN of 23 and will continue on gentle IV hydration. Will repeat a.m. labs and continue to monitor closely. 02/06/2020 patient iscurrently sitting on the side of the bed. Still febrile and T-max is 101.2. no leukocytosis.Currently being continued on antibiotics in the form of ceftriaxone. CT of the chest was ordered and ID is following area cultures have been negative so far. Denied any complaints of worsening back pain. laboratory data showed a WBC 8.7, hemoglobin 7.2 and platelet is 122 D-dimer is 1.81, patient is currently on oxygen at 2 L via nasal cannula.patient was also tachycardic. Denied any comes of dizziness or lightheadedness. No complaints chest pain or shortness of breath. renal function improved with creatinine level I.37 Review of systems: Constitutional: patient does have fever. No chills. Cardiovascular: Reports chest heaviness with no reports of palpitations Respiratory: Reports mild shortness of breath with no reports of cough GI: No reports of nausea, vomiting, or diarrhea : No reports of dysuria or retention Neurovascular: No reports of weakness or numbness All medications have been reviewed Objective - Vital Signs Vital signs: Vital Signs Temp 101.2 F H 02/06/20 17:28 Pulse 109 H 02/06/20 16:34 Resp 24 02/06/20 16:34 BP 113/72 02/06/20 16:34 Pulse Ox 95 02/06/20 16:34 Intake & Output 02/05/20 02/06/20 02/06/20 18:59 06:59 18:59 Intake Total 1590 1780 Output Total 1900 700 Balance 1590 -120 -700 Weight 126.1 kg Intake: Intake, IV Titration 750 Amount Sodium Chloride 0.9% 1, 750 000 ml @ 20 mls/hr IV . Q24H SUNDAR Rx#:[id number] Oral 840 1780 Output: Urine 1900 700 Other: Voiding Method Toilet Toilet # Voids 1 2 1 - Exam - Exam Gen: This is a 44-year-old female sitting up in bed, awake, alert and oriented 3, well-developed, well-nourished. Temp is 98.6F, pulse is 92, respirations are 22, blood pressure is 110/71, oxygen saturation is 97% on 3 L via nasal cannula. HEENT: Head is atraumatic, normocephalic. Pupils equal, round. Sclerae is anicteric. NECK: Supple. No JVD. No lymphadenopathy. No thyromegaly. LUNGS: Diminished breath sounds bilaterally with no wheezes or rhonchi. No intercostal retractions. HEART: S1, S2 are muffled ABDOMEN: Soft. Obese. Bowel sounds are present. No masses. No tenderness. EXTREMITIES: No pedal edema. No calf tenderness. NEUROLOGICAL: Patient is awake, alert and oriented x3. Cranial nerves 2 through 12 are grossly intact. - Labs CBC & Chem 7: 02/06/20 07:11 02/06/20 07:11 Labs: Abnormal Lab Results - Last 24 Hours (Table) 02/05/20 02/06/20 02/06/20 Range/Units 23:04 07:11 07:11 RBC 2.34 L (3.80-5.40) m/uL Hgb 7.2 L (11.4-16.0) gm/dL Hct 20.5 L (34.0-46.0) % Plt Count 122 L (150-450) k/uL D-Dimer (<0.60) mg/L FEU Sodium 133 L (137-145) mmol/L BUN 19 H (7-17) mg/dL Creatinine 1.37 H (0.52-1.04) mg/dL Glucose 148 H (74-99) mg/dL Calcium 7.8 L (8.4-10.2) mg/dL C-Reactive Protein (<10.0) mg/L Urine Appearance Cloudy H (Clear) Urine Protein Trace H (Negative) Urine Glucose (UA) 2+ H (Negative) Ur Leukocyte Esterase Moderate H (Negative) Urine WBC 18 H (0-5) /hpf Ur Squamous Epith Cells 13 H (0-4) /hpf Urine Bacteria Few H (None) /hpf Urine Mucus Rare H (None) /hpf 02/06/20 02/06/20 Range/Units 12:16 12:16 RBC (3.80-5.40) m/uL Hgb (11.4-16.0) gm/dL Hct (34.0-46.0) % Plt Count (150-450) k/uL D-Dimer 1.81 H (<0.60) mg/L FEU Sodium (137-145) mmol/L BUN (7-17) mg/dL Creatinine (0.52-1.04) mg/dL Glucose (74-99) mg/dL Calcium (8.4-10.2) mg/dL C-Reactive Protein 211.3 H (<10.0) mg/L Urine Appearance (Clear) Urine Protein (Negative) Urine Glucose (UA) (Negative) Ur Leukocyte Esterase (Negative) Urine WBC (0-5) /hpf Ur Squamous Epith Cells (0-4) /hpf Urine Bacteria (None) /hpf Urine Mucus (None) /hpf Microbiology - Last 24 Hours (Table) 02/05/20 23:04 Urine Culture - Preliminary Urine,Clean Catch Assessment and Plan Assessment: fever. possible urinary tract infection. Was also complaining of cough and shortness of breath with possible pneumonia.rule out influenza, Coumadin 19. Acute renal failure with prerenal acute tubular necrosis and dehydration, present on admission Severe degenerative joint disease Status post laminectomy and decompression of the L4-5 Anemia, normocytic anemia of chronic disease Elevated AST, ALT, mildly History of asthma history of diabetes mellitus type 2 History of deep vein thrombosis GERD hypertension Hyperlipidemia Seizure disorder History of sleep apnea history of bladder surgery History of hysterectomy History of anxiety, bipolar Remote history of nicotine dependence Obesity with a body mass index of 51.2 Full code Recommendations and discussion: patient will be continued on IV hydration. Continue with Tylenol for fever and encourage incentive spirometrydue to bibasilar atelectasis.continue to titrate down oxygen. .antibiotics in the form of ceftriaxone will be continued. ID was consulted. Follow-up renal function which is improving with a creatinine of 1.37 today. Surgical site is intact and dry.follow-up culture reports. Otherwise continue the current management. DVT prophylaxis and pain management. Further recommendations based on the clinical course. Time with Patient: Greater than 30
[2020-02-07 11:20] LABS: Basophils % (A) 0 %; Eosinophils # (A) 0.1 k/uL (0-0.7); Eosinophils % (A) 1 %; HCT 20.6 % (34.0-46.0); Lymphocytes % (A) 14 %; MCH 28.6 pg (25.0-35.0); MCHC 31.8 g/dL (31.0-37.0); MCV 89.8 fL (80.0-100.0); Mean Platelet Volume 8.7; Monocytes # (A) 0.3 k/uL (0-1.0); Monocytes % (A) 4 %; Neutrophils # (A) 5.8 k/uL (1.3-7.7); Neutrophils % (A) 79 %; Platelet Count 130 k/uL (150-450); Poikilocytosis Slight; RDW 15.3 % (11.5-15.5); WBC 7.4 k/uL (3.8-10.6)
[2020-02-07 11:27] LABS: Calcium 8.2 mg/dL (8.4-10.2); Potassium 3.7 mmol/L (3.5-5.1)
[2020-02-07 11:28] LABS: HGB 6.6 gm/dL (11.4-16.0)
--- NOTE | 2020-02-07 12:05 | P.PN ---
Progress Note - Text Progress Note Date: 02/07/20 Postoperative day #3 Patient is seen and examined today at bedside. The patient has some pain around the surgical site as expected. Pain is being controlled with medication. She feels that her back is doing well and she's been walking around the room. She is voiding freely tolerating her diet. She is passing gas. She denies any chest pain. She denies any shortness of breath. Physical Exam 100.4 as a T-max with stable vital signs Abdomen is soft nontender. Chest has good excursion deep and space expiration The incision site is clean dry and intact. No erythema there is no purulence. The site is clean and dry. Extremities have not had neurologic change from prior to surgery. She has sustained dorsal flexion plantar flexion and EHL. Calves and thighs were soft nontender without evidence of DVT. Assessment/Plan Postoperative day #3 status post minimally invasive decompression fusion L4 5 for her spondylolisthesis with dynamic instability and spinal stenosis low back pain lower extremity radicular symptoms. Patient is progressing as expected from the surgery in terms of her back and lower extremities. She is happy with results with that. We will continue to increase the patient's mobilization with therapy. The patient continues to have some fevers. They're not as high as before but they continue. Her hemoglobin today was only 6.6. Medicine has evaluated this and she is slightly tachycardic and a half ordered to transfuse her 1 unit. The patient understands this. the patient has been retested for Covid as well she continues to have some fevers. Her culture results of blood and urine abdomen negative. We will continue pain control with oral or IV medications. We'll continue to follow patient closely.
--- NOTE | 2020-02-07 17:36 | P.PN ---
Subjective Progress Note Date: 02/07/20 Principal diagnosis: acute kidney injury Fever This is a 44-year-old female who was recently admitted with an elevated creatinine is patient was slated to have surgery with Dr. Negron and is being closely monitored. Patient is scheduled to undergo lumbar decompression and fusion at the L4/5 for spondylolisthesis and spinal stenosis with chronic low back pain and lower extremity radiculopathy. Patient is maintained on IV fluids and will continue at this time and creatinine is trending down and is currently 1.6. Will repeat a.m. labs. Patient is clear for surgery and will be nothing by mouth at midnight. Patient continues to have some back discomfort although states she feels better from yesterday. Patient is up into the bathroom with no reports of dysuria or retention noted. Patient is denying any nausea or vomiting and tolerating diet. No reports of chest pain, shortness of breath, or palpitations noted. Patient remains afebrile. 02/04/2020 Patient is seen and evaluated in follow-up and is currently nothing by mouth as she is scheduled to undergo lumbar decompression and fusion with Dr. Negron today. Patient's creatinine improved and is currently 1.35 with a BUN of 25. Current sodium is 139 and potassium is 4.3. Patient is maintained on gentle IV hydration and will continue at this time. Will repeat a.m. labs and continue to monitor closely. Currently patient has no reports of chest pain, shortness of breath, or palpitations. Patient is afebrile. No reports of nausea or vomiting and patient states she is hungry although is nothing by mouth for the procedure. Surgery scheduled for sometime early this afternoon. 02/05/2020 Patient is seen and evaluated in follow-up status post L4 to 5 posterior lateral decompression and fusion and is being closely monitored. Patient's surgical dressings are dry and intact and patient states her pain is being controlled. Patient is having some shortness of breath and chest heaviness and a troponin and EKG along with chest x-ray have been ordered. Chest x-ray shows no acute process, troponin was negative. Patient is currently on 3 L of oxygen via nasal cannula and discussed with nursing staff about weaning as she does not wear oxygen in the outpatient setting. Patient does have incentive spirometer at bedside and instructed to continue using at least 10 times every hour while awake. Patient also to increase activity as tolerated. Patient states she does have a history of acid reflux and was taking Zantac in the past although has not been experiencing much acid reflux lately and discontinued the Zantac. Protonix 40 mg IV push twice daily will be added. Per nursing staff patient has been up and walking the halls with no difficulty. Creatinine slightly elevated at 1.57 with a BUN of 23 and will continue on gentle IV hydration. Will repeat a.m. labs and continue to monitor closely. 02/06/2020 patient iscurrently sitting on the side of the bed. Still febrile and T-max is 101.2. no leukocytosis.Currently being continued on antibiotics in the form of ceftriaxone. CT of the chest was ordered and ID is following area cultures have been negative so far. Denied any complaints of worsening back pain. laboratory data showed a WBC 8.7, hemoglobin 7.2 and platelet is 122 D-dimer is 1.81, patient is currently on oxygen at 2 L via nasal cannula.patient was also tachycardic. Denied any comes of dizziness or lightheadedness. No complaints chest pain or shortness of breath. renal function improved with creatinine level I.37 02/07/2020 Patient is currently lying in the bed comfortably. Patient has been having low- grade fever but overall improving. T-max is 100.4 today. No leukocytosis. Denied any complaints of chest pain or shortness of breath. No leg swelling. Patient feels some dizziness when she is getting out of bed. Due to elevated d-dimer VQ scan will be done due to increased creatinine level. Cultures have been negative so far. Urine culture is negative. Patient was on Macrobid prior to admission. Patient has been afebrile now and tachycardia improved as well. ID is on board. Influenza and Covid 19 PCR is negative. Legs and leg urine antigen negative as well. Patient is able to get out of bed and ambulating without shortness of breath. Review of systems: Constitutional: patient does have fever. No chills. Cardiovascular: Reports chest heaviness with no reports of palpitations Respiratory: Reports mild shortness of breath with no reports of cough GI: No reports of nausea, vomiting, or diarrhea : No reports of dysuria or retention Neurovascular: No reports of weakness or numbness All medications have been reviewed Objective - Vital Signs Vital signs: Vital Signs Temp 98.9 F 02/07/20 14:46 Pulse 97 02/07/20 14:46 Resp 24 02/07/20 14:25 BP 114/72 02/07/20 14:46 Pulse Ox 93 L 02/07/20 14:25 Intake & Output 02/06/20 02/07/20 02/07/20 18:59 06:59 18:59 Intake Total 1110 Output Total 773 214 1595 Balance -900 -300 60 Intake: Oral 800 Blood Product 310 Rc Irr As1 Unit 310 [id number] Output: Urine 573 810 8527 Other: Voiding Method Toilet Toilet Toilet # Voids 1 2 - Exam - Exam Gen: This is a 44-year-old female sitting up in bed, awake, alert and oriented 3, well-developed, well-nourished. Temp is 98.6F, pulse is 92, respirations are 22, blood pressure is 110/71, oxygen saturation is 97% on 3 L via nasal cannula. HEENT: Head is atraumatic, normocephalic. Pupils equal, round. Sclerae is anic teric. NECK: Supple. No JVD. No lymphadenopathy. No thyromegaly. LUNGS: Diminished breath sounds bilaterally with no wheezes or rhonchi. No intercostal retractions. HEART: S1, S2 are muffled ABDOMEN: Soft. Obese. Bowel sounds are present. No masses. No tenderness. EXTREMITIES: No pedal edema. No calf tenderness. NEUROLOGICAL: Patient is awake, alert and oriented x3. Cranial nerves 2 through 12 are grossly intact. - Labs CBC & Chem 7: 02/07/20 10:57 02/07/20 10:57 Labs: Abnormal Lab Results - Last 24 Hours (Table) 02/06/20 02/07/20 02/07/20 Range/Units 12:16 10:57 10:57 RBC 2.30 L (3.80-5.40) m/uL Hgb 6.6 L* (11.4-16.0) gm/dL Hct 20.6 L (34.0-46.0) % Plt Count 130 L (150-450) k/uL Sodium 136 L (137-145) mmol/L Glucose 155 H (74-99) mg/dL Calcium 8.2 L (8.4-10.2) mg/dL Procalcitonin 0.21 H (0.02-0.09) ng/mL Crossmatch 02/07/20 Range/Units 12:16 RBC (3.80-5.40) m/uL Hgb (11.4-16.0) gm/dL Hct (34.0-46.0) % Plt Count (150-450) k/uL Sodium (137-145) mmol/L Glucose (74-99) mg/dL Calcium (8.4-10.2) mg/dL Procalcitonin (0.02-0.09) ng/mL Crossmatch See Detail Microbiology - Last 24 Hours (Table) 02/05/20 23:04 Urine Culture - Final Urine,Clean Catch 02/06/20 07:18 Blood Culture - Preliminary Blood No Growth after 24 hours 02/06/20 07:11 Blood Culture - Preliminary Blood No Growth after 24 hours 02/05/20 20:43 Blood Culture - Preliminary Blood No Growth after 24 hours 02/05/20 20:37 Blood Culture - Preliminary Blood No Growth after 24 hours Assessment and Plan Assessment: fever. possible urinary tract infection. Was also complaining of cough and shortness of breath with possible pneumonia.rule out influenza, Coumadin 19. CT chest showed no infiltrates. Subsegmental atelectasis. Acute renal failure with prerenal acute tubular necrosis and dehydration, present on admission. Improved now. Severe degenerative joint disease Status post laminectomy and decompression of the L4-5 Anemia, normocytic anemia of chronic disease Elevated AST, ALT, mildly History of asthma history of diabetes mellitus type 2 History of deep vein thrombosis GERD hypertension Hyperlipidemia Seizure disorder History of sleep apnea history of bladder surgery History of hysterectomy History of anxiety, bipolar Remote history of nicotine dependence Obesity with a body mass index of 51.2 Full code Recommendations and discussion: patient will be continued on gentle IV hydration. Continue with Tylenol for fever and encourage incentive spirometrydue to bibasilar atelectasis.continue to titrate down oxygen. .antibiotics in the form of ceftriaxone will be continued. ID is following. Follow-up renal function which is improving with a creatinine of 1.37--1.0 Surgical site is intact and dry.follow-up culture reports. Otherwise continue the current management. DVT prophylaxis and pain management. Further recommendations based on the clinical course. Time with Patient: Greater than 30
--- NOTE | 2020-02-07 18:18 | PN ---
PROGRESS NOTE DATE OF SERVICE: 02/07/2020 REASON FOR FOLLOW UP: Postop fever. INTERIM HISTORY: The patient overall fever pattern has improved. Last night the patient was around 100.4 and early this morning. The patient is feeling better and is still requiring supplemental oxygen. She is breathing more comfortably. Denies any chest pain. Minimal cough. No nausea, vomiting, abdominal pain, no diarrhea. She did have a drop in normal hemoglobin just getting a blood transfusion. PHYSICAL EXAMINATION: Blood pressure 142/72 with a pulse of 97, temperature 97.9. She is 93% on 3 L nasal cannula. General description is a middle-aged female up in the bed in no distress. Respiratory system: Unlabored breathing. Decreased breath sounds in the bases. Heart S1, S2. Regular rate and rhythm. Abdomen soft, no tenderness. LABORATORY STUDIES: Hemoglobin 6.4, white count 7.4. CRP to 211. Procalcitonin 0.21. Gonzalez virus antigen negative. IMPRESSION/PLAN: Patient postop fever, concern for urinary tract infection/pneumonia. This patient is currently covered with ceftriaxone to continue with elevated D-dimer as clinically suspicion low for this was discussed with the admitting physician. MMODL / IJN: [id number] /
[2020-02-07] MEDS: PRAZOSIN 1 MG CAP PO SCH (20:21)
[2020-02-07] MEDS: SODIUM CHLORIDE 0.9% 1,000 ML IV SCH (20:26)
[2020-02-08 07:35] LABS: Basophils % (A) 1 %; Eosinophils # (A) 0.1 k/uL (0-0.7); Eosinophils % (A) 2 %; HCT 21.1 % (34.0-46.0); HGB 7.1 gm/dL (11.4-16.0); Lymphocytes # (A) 0.9 k/uL (1.0-4.8); Lymphocytes % (A) 18 %; MCH 29.6 pg (25.0-35.0); MCHC 33.6 g/dL (31.0-37.0); MCV 88.2 fL (80.0-100.0); Mean Platelet Volume 7.9; Monocytes # (A) 0.3 k/uL (0-1.0); Monocytes % (A) 5 %; Neutrophils # (A) 3.8 k/uL (1.3-7.7); Neutrophils % (A) 74 %; Platelet Count 144 k/uL (150-450); Poikilocytosis Slight; RBC 2.39 m/uL (3.80-5.40); RDW 15.4 % (11.5-15.5); WBC 5.2 k/uL (3.8-10.6)
[2020-02-08] MEDS: HYDROcodone/APAP 5-325MG 1 EACH TAB PO PRN ×3 (08:02→20:23)
[2020-02-08] MEDS: IPRATROPIUM-ALBUTEROL 3 ML NEB INHALATION SCH ×3 (08:09→21:17)
[2020-02-08] MEDS: NON FORMULARY DRUG (Cariprazine Hcl [Vraylar] 4.5 MG Capsule) PO SCH (08:31)
[2020-02-08] MEDS: GABAPENTIN 400 MG CAP PO SCH ×3 (08:48→21:12)
[2020-02-08] MEDS: ATORVASTATIN 40 MG TAB PO SCH (08:48)
[2020-02-08] MEDS: OXYBUTYNIN 10 MG TAB.ER.24 PO SCH (08:48)
[2020-02-08] MEDS: PANTOPRAZOLE 40 MG/10 ML VIAL IVP SCH ×2 (08:48→20:25)
[2020-02-08] MEDS: SENNOSIDES-DOCUSATE SODIUM 1 EACH TAB PO SCH (08:48)
[2020-02-08] MEDS: METOPROLOL SUCCINATE (ER) 50 MG TAB.ER.24H PO SCH (08:48)
[2020-02-08] MEDS: FLUTICASONE 50MCG/SPRAY NASAL 16GM EA NOSTRIL SCH (08:48)
[2020-02-08] MEDS: HEPARIN SODIUM,PORCINE 5,000 UNIT/ML 1 ML VIAL SQ SCH ×2 (08:48→20:23)
[2020-02-08] MEDS: MULTIVITAMINS, THERA 1 EACH TAB PO SCH (08:48)
[2020-02-08] MEDS: OXcarbazepine 300 MG TAB PO SCH ×2 (08:48→20:24)
[2020-02-08] MEDS: amLODIPine 5 MG TAB PO SCH (08:50)
[2020-02-08 09:45] LABS: Calcium 8.1 mg/dL (8.4-10.2); Potassium 3.8 mmol/L (3.5-5.1)
--- NOTE | 2020-02-08 11:52 | NM ---
EXAMINATION TYPE: NM pul vent and perfuse DATE OF EXAM: 02/08/2020 COMPARISON: Chest CT 2 days ago. HISTORY: Shortness of breath. Elevated d-dimer. TECHNIQUE: Utilizing inhalation of 33.9 mCi Tc 99m DTPA aerosol and intravenous injection of 5.3 mCi of Tc 99m MAA, ventilation and perfusion images are acquired post injection in multiple projections. FINDINGS: Small matching defects are felt present. There is no evidence of mismatched defects. IMPRESSION: Low scintigraphic evidence for acute pulmonary embolism.
[2020-02-08] MEDS ORDERED: SENNOSIDES-DOCUSATE SODIUM 1 EACH TAB PO PRN (12:19)
[2020-02-08] MEDS ORDERED: MAGNESIUM HYDROXIDE 2,400 MG/10 ML CUP PO PRN (12:19)
--- NOTE | 2020-02-08 12:21 | P.PN ---
Progress Note - Text Progress Note Date: 02/08/20 Orthopedic Spine: History of present illness: Patient is a pleasant 44-year-old female who is seen and examined at the bedside following posterior lateral decompression and fusion performed last . Patient was originally scheduled for surgical intervention, 02/03/2020, surgery was delayed due to acute renal insufficiency. She was cleared for surgery by medicine. Her kidneys have continue to improve. Patient states they are doing well postsurgically in regards to her lumbar spine. She has been able to ambulate the hallways multiple times. She is not currently complaining of any lower extremity weakness or radiculopathy bilaterally. She states her surgical sites feel well. Her back pain has been adequately controlled. She does continue to have some shortness of breath with desaturation during ambulation. Nursing states without several oxygen she desaturated into the 80s during ambulation. VQ scan was performed today which did not show evidence of pulmonary embolism. Covid 19 testing has been negative. She may have possible pneumonia and/or possible urinary tract infection. She continues to be seen by medicine and infectious disease. Patient has not had a bowel movement postoperatively. She continues to pass gas without difficulty. She denies abdominal pain. Patient's past medical history includes diabetes mellitus type 2, history of DVT, hypertension, hyperlipidemia, seizure disorder, obesity, history of asthma, chronic anemia and acute renal failure. Physical Exam Lumbar Fusion: Postoperative day #4 Patient is awake, alert, and oriented 3 Adequate chest excursion with inspiration and expiration; O2 nasal cannula Dressings over the surgical sites are clean and dry Dressings are removed during physical examination; no drainage from the surgical sites Tattoos over the thoracic and lumbar spines No pain with palpation of the surgical sites Neurovascularly intact bilaterally lower extremities No signs or symptoms of DVT; no calf pain; pneumatic cuffs intact bilateral lower extremities Abdomen soft nontender Dorsiflexion, plantarflexion, and extensor hallucis longus positive sustained bilaterally Assessment: Status post L4-5 minimal invasive posterior lateral decompression and fusion and transforaminal lumbar interbody fusion L4-5 dynamic grade 3 spondylolisthesis L4-5 spinal canal stenosis Lumbar spondylolysis Low back pain and lower extremity radiculopathy Shortness of breath Possible urinary tract infection Possible pneumonia Diabetes mellitus type 2 History of DVT Hypertension Hyperlipidemia Seizure disorder Obesity History of asthma Chronic anemia Acute renal failure improving Plan: 1. Ambulate as tolerated; work with Physical Therapy to increase mobilization 2. Continue pain control with IV and oral medications; we will plan to wean the patient off of IV pain medication in anticipation for discharge home as early as tomorrow, 12/07/2019, pending clearance by medicine MAPS has been reviewed today, 02/05/2020, with an Overall Overdose Risk Score of 110. An "Opiod Start Talking" Form has been signed and placed in the patient's chart. A prescription has been written for [place] 5 mg/325 mg 1-2 tabs every 6 hours as needed for pain, dispensed #56. Avoid anti-inflammatory medications over the next 6 weeks postoperatively. 3. Dressings have been removed during physical examination P her surgical sites remained clean and dry with no active drainage. Patient may shower without dressing is intact at this time. 4. Patient has not had a bowel movement postoperatively. She is not using any abdominal pain and is passing gas. We will currently planned to increase Senokot 2 twice a day and had milk of magnesia to help facilitate a bowel movement. 5. Medical management can continue to manage patient for patient's other medical diagnoses including shortness of breath with possible pneumonia and or urinary tract infection. 6. She will continue be seeing him by infectious disease as well 7. We will continue to follow the patient closely; Patient will continue to remain in the hospital until cleared for discharge by medicine and infectious disease. 8. Patient can follow-up with Nilo Montilla PA-C or Dr. Yoni Negron at [facility] in 2-3 weeks following discharge
[2020-02-08] MEDS: SODIUM CHLORIDE 0.9% 1,000 ML IV SCH (13:05)
[2020-02-08] MEDS: MAGNESIUM HYDROXIDE 2,400 MG/10 ML CUP PO PRN (14:19)
--- NOTE | 2020-02-08 14:27 | P.PN ---
Subjective Progress Note Date: 02/08/20 This is a 44-year-old female who was recently admitted with an elevated creatinine is patient was slated to have surgery with Dr. Negron and is being closely monitored. Patient is scheduled to undergo lumbar decompression and fusion at the L4/5 for spondylolisthesis and spinal stenosis with chronic low ba ck pain and lower extremity radiculopathy. Patient is maintained on IV fluids and will continue at this time and creatinine is trending down and is currently 1.6. Will repeat a.m. labs. Patient is clear for surgery and will be nothing by mouth at midnight. Patient continues to have some back discomfort although states she feels better from yesterday. Patient is up into the bathroom with no reports of dysuria or retention noted. Patient is denying any nausea or vomiting and tolerating diet. No reports of chest pain, shortness of breath, or palpitations noted. Patient remains afebrile. 02/04/2020 Patient is seen and evaluated in follow-up and is currently nothing by mouth as she is scheduled to undergo lumbar decompression and fusion with Dr. Negron today. Patient's creatinine improved and is currently 1.35 with a BUN of 25. Current sodium is 139 and potassium is 4.3. Patient is maintained on gentle IV hydration and will continue at this time. Will repeat a.m. labs and continue to monitor closely. Currently patient has no reports of chest pain, shortness of breath, or palpitations. Patient is afebrile. No reports of nausea or vomiting and patient states she is hungry although is nothing by mouth for the procedure. Surgery scheduled for sometime early this afternoon. 02/05/2020 Patient is seen and evaluated in follow-up status post L4 to 5 posterior lateral decompression and fusion and is being closely monitored. Patient's surgical dressings are dry and intact and patient states her pain is being controlled. Patient is having some shortness of breath and chest heaviness and a troponin and EKG along with chest x-ray have been ordered. Chest x-ray shows no acute process, troponin was negative. Patient is currently on 3 L of oxygen via nasal cannula and discussed with nursing staff about weaning as she does not wear oxygen in the outpatient setting. Patient does have incentive spirometer at bedside and instructed to continue using at least 10 times every hour while awake. Patient also to increase activity as tolerated. Patient states she does have a history of acid reflux and was taking Zantac in the past although has not been experiencing much acid reflux lately and discontinued the Zantac. Protonix 40 mg IV push twice daily will be added. Per nursing staff patient has been up and walking the halls with no difficulty. Creatinine slightly elevated at 1.57 with a BUN of 23 and will continue on gentle IV hydration. Will repeat a.m. labs and continue to monitor closely. 02/07/2020 Patient is currently lying in the bed comfortably. Patient has been having low- grade fever but overall improving. T-max is 100.4 today. No leukocytosis. Denied any complaints of chest pain or shortness of breath. No leg swelling. Patient feels some dizziness when she is getting out of bed. Due to elevated d-dimer VQ scan will be done due to increased creatinine level. Cultures have been negative so far. Urine culture is negative. Patient was on Macrobid prior to admission. Patient has been afebrile now and tachycardia improved as well. ID is on board. Influenza and Covid 19 PCR is negative. Legs and leg urine antigen negative as well. Patient is able to get out of bed and ambulating without shortness of breath. 02/08/2020 Patient is seen and evaluated in follow-up currently walking the halls on 1 L of oxygen and is 97%. Patient continues to have shortness of breath and was tested off oxygen with exertion and was 87% on room air. Patient instructed to continue using incentive spirometer at least 10 times every hour while awake and continue to walk and increase activity as tolerated. Patient is receiving DuoNeb albuterol treatments. Patient's creatinine has improved and is 0.9 and underwent VQ scan which was negative for PE. Patient is also maintained on IV antibiotics in the form of ceftriaxone although blood and urine cultures remain negative. Infectious disease is following. Review of systems: Constitutional: No reports of fatigue, fever, or chills Cardiovascular: Reports chest heaviness with no reports of palpitations Respiratory: Reports mild shortness of breath with exertion, no reports of cough GI: No reports of nausea, vomiting, or diarrhea : No reports of dysuria or retention Neurovascular: No reports of weakness or numbness All medications have been reviewed Objective - Vital Signs Vital signs: Vital Signs Temp 98.2 F 02/08/20 08:32 Pulse 89 02/08/20 12:43 Resp 18 12/07/20 08:32 BP 110/72 02/08/20 08:32 Pulse Ox 92 L 02/08/20 12:43 Intake & Output 02/07/20 02/08/20 02/08/20 18:59 06:59 18:59 Intake Total 1710 540 Output Total 1050 100 400 Balance 660 440 -400 Weight 126.6 kg Intake: Oral 1400 540 Blood Product 310 Rc Irr As1 Unit 310 [id number] Output: Urine 1050 100 400 Other: Voiding Method Toilet Toilet # Voids 2 1 1 - Exam Gen: This is a 44-year-old female currently walking the halls, awake, alert and oriented 3, well-developed, well-nourished. HEENT: Head is atraumatic, normocephalic. Pupils equal, round. Sclerae is anicteric. NECK: Supple. No JVD. No lymphadenopathy. No thyromegaly. LUNGS: Diminished breath sounds bilaterally with no wheezes or rhonchi. No intercostal retractions. HEART: S1, S2 are muffled ABDOMEN: Soft. Obese. Bowel sounds are present. No masses. No tenderness. EXTREMITIES: No pedal edema. No calf tenderness. NEUROLOGICAL: Patient is awake, alert and oriented x3. Cranial nerves 2 through 12 are grossly intact. - Labs CBC & Chem 7: 02/08/20 06:59 02/08/20 06:59 Labs: Abnormal Lab Results - Last 24 Hours (Table) 02/07/20 02/08/20 02/08/20 Range/Units 12:16 06:59 06:59 RBC 2.39 L (3.80-5.40) m/uL Hgb 7.1 L (11.4-16.0) gm/dL Hct 21.1 L (34.0-46.0) % Plt Count 144 L (150-450) k/uL Lymphocytes # 0.9 L (1.0-4.8) k/uL Glucose 117 H (74-99) mg/dL Calcium 8.1 L (8.4-10.2) mg/dL Crossmatch See Detail Microbiology - Last 24 Hours (Table) 02/06/20 07:11 Blood Culture - Preliminary Blood No Growth after 48 hours 02/06/20 07:18 Blood Culture - Preliminary Blood No Growth after 48 hours 02/05/20 20:37 Blood Culture - Preliminary Blood No Growth after 48 hours 02/05/20 20:43 Blood Culture - Preliminary Blood No Growth after 48 hours 02/05/20 23:04 Urine Culture - Final Urine,Clean Catch Assessment and Plan Assessment: Acute renal failure with prerenal acute tubular necrosis and dehydration, present on admission, improved now Fever, possible urinary tract infection and possible pneumonia. Influenza and Covid 19 testing was negative Severe degenerative joint disease Status post laminectomy and decompression of the L4-5 Anemia, normocytic anemia of chronic disease Elevated AST, ALT, mildly History of asthma history of diabetes mellitus type 2 History of deep vein thrombosis GERD hypertension Hyperlipidemia Seizure disorder History of sleep apnea history of bladder surgery History of hysterectomy History of anxiety, bipolar Remote history of nicotine dependence Obesity with a body mass index of 51.2 Full code Recommendations and discussion: Recommend to continue current medications. Patient is maintained on IV ceftriaxone and will continue at this time. Urine and blood cultures have been negative. Patient is now afebrile although continues to have shortness of breat h with exertion. Instructed to continue with the incentive spirometer and increasing activity as tolerated. Discussed with nursing staff about weaning FiO2 as she is currently on 1 L of oxygen. D-dimer was elevated and patient underwent VQ scan which was negative for PE patient is maintained on DVT prophylaxis and will continue at this time. Patient did receive a unit of blood yesterday and current hemoglobin is 7.1. Will repeat a.m. labs. Further recommendations to follow. Anticipate discharge in 24 hours.
--- NOTE | 2020-02-08 16:47 | PN ---
PROGRESS NOTE DATE OF SERVICE: 02/08/2020 REASON FOR FOLLOWUP: Postoperative fever, possible UTI. INTERVAL HISTORY: The patient is currently afebrile. No fever in the last 24 hours. The patient is feeling better. She is currently off the oxygen. Denies having any chest pain or shortness of breath. Minimal cough. No abdominal pain and no pain to the lumbar spine surgical area. PHYSICAL EXAMINATION: Blood pressure 122/83 with a pulse of 93, temperature 97.6. She is 94% on room air. General description is a middle-aged female lying in bed in no distress. RESPIRATORY SYSTEM: Unlabored breathing. Clear to auscultation. HEART: S1, S2. Regular rate and rhythm. ABDOMEN: Soft. No tenderness. LABS: Hemoglobin 7.1, white count 5.2. BUN of 12, creatinine 0.91. Cultures remain negative. DIAGNOSTIC IMPRESSION AND PLAN: Patient with a postoperative fever with concern about possible urinary tract infection or pneumonitis. V/Q scan was low probability for pulmonary embolism. The patient clinically responded to the Rocephin; to continue. Finish with a short course of oral Ceftin and close outpatient followup. MMODL / IJN: [id number] / ESEQUIEL
[2020-02-08] MEDS: PRAZOSIN 1 MG CAP PO SCH (20:24)
[2020-02-09 06:06] LABS: Basophils % (A) 1 %; Eosinophils # (A) 0.1 k/uL (0-0.7); Eosinophils % (A) 2 %; HCT 22.3 % (34.0-46.0); HGB 7.4 gm/dL (11.4-16.0); Lymphocytes # (A) 0.9 k/uL (1.0-4.8); Lymphocytes % (A) 15 %; MCH 29.9 pg (25.0-35.0); MCHC 33.4 g/dL (31.0-37.0); MCV 89.5 fL (80.0-100.0); Monocytes # (A) 0.3 k/uL (0-1.0); Monocytes % (A) 5 %; Neutrophils # (A) 4.5 k/uL (1.3-7.7); Neutrophils % (A) 77 %; Platelet Count 154 k/uL (150-450); Poikilocytosis Slight; RBC 2.49 m/uL (3.80-5.40); RDW 15.2 % (11.5-15.5); WBC 5.9 k/uL (3.8-10.6)
[2020-02-09 06:41] LABS: African American GFR (CKD) >90 (>60 ml/min/1.73 sqM); Anion Gap 3 mmol/L; Blood Urea Nitrogen 14 mg/dL (7-17); Calcium 8.2 mg/dL (8.4-10.2); Carbon Dioxide 31 mmol/L (22-30); Chloride 104 mmol/L (98-107); Glucose 115 mg/dL (74-99); Non-African American GFR(CKD) 84 (>60 ml/min/1.73 sqM); Sodium 138 mmol/L (137-145)
[2020-02-09] MEDS: IPRATROPIUM-ALBUTEROL 3 ML NEB INHALATION SCH ×2 (08:00→12:38)
--- NOTE | 2020-02-09 09:01 | P.DS ---
Providers Date of admission: 02/04/20 09:22 Expected date of discharge: 02/09/20 Attending physician: Richa Hollingsworth Consults: 02/02/20 13:05 Consult Physician Routine Consulting Provider: Elif Negron Consult Reason/Comments: Back pain, preoperative patient Do you want consulting provider notified?: Yes 02/06/20 06:53 Consult Physician Routine Consulting Provider: Loulou Miranda Consult Reason/Comments: Persistent fevers, post-surgical Do you want consulting provider notified?: Yes, Notify in am 02/08/20 17:03 Consult Physician Urgent Consulting Provider: Richard Bravo Consult Reason/Comments: shortness of breath, is to have asthma, apnea in the past Do you want consulting provider notified?: Yes Primary care physician: Dilshad Reecebal - Discharge Diagnosis(es) (1) Lumbar spinal stenosis Current Visit: Yes Status: Acute (2) Lumbar back pain with radiculopathy affecting lower extremity Current Visit: Yes Status: Acute (3) Status post lumbar spinal fusion Current Visit: Yes Status: Acute (4) Anemia Current Visit: Yes Status: Acute (5) Diabetes mellitus Current Visit: Yes Status: Acute (6) History of DVT (deep vein thrombosis) Current Visit: Yes Status: Acute (7) Hypertension Current Visit: Yes Status: Acute (8) Hyperlipidemia Current Visit: Yes Status: Acute (9) Obesity Current Visit: Yes Status: Acute (10) History of asthma Current Visit: Yes Status: Acute (11) History of seizure disorder Current Visit: Yes Status: Acute (12) Acute renal failure (ARF) Current Visit: Yes Status: Acute (13) Fever Current Visit: Yes Status: Acute (14) Spondylolisthesis at L4-L5 level Current Visit: Yes Status: Acute Hospital Course: This is a pleasant 44-year-old female who presented with L4 S5 dynamic grade 3 spondylolisthesis, lumbar spinal canal stenosis, lumbar spondylolysis, low back pain and lower extremity radiculopathy who failed outpatient conservative therapy. She was admitted for an L4-5 minimally invasive posterior lateral decompression fusion with transforaminal lumbar interbody fusion. Patient did significantly well postoperatively in regards to her lumbar spine. She was able to ambulate the hallways first evening. She's not experiencing any significant pain in her lumbar spine. She denies any specific lower extremity weakness or radiculopathy bilaterally. She is very happy with her progress postoperatively. More significantly, she started to experience shortness of breath and desaturation postoperatively. She's undergone extensive workup with medicine and infectious disease. She was having episodes of fever but has now been afebrile. She has had a VQ scan which was negative for pulmonary embolism after elevated D dimer. Pulmonology has also been consulted. Echocardiogram scheduled for today. Patient herself is feel there shortness of breath has improved. She is not currently complaining of any chest pain. Nursing states patient will be evaluated today by pulmonology as well as medicine. Depending on the results of the echocardiogram, they may be planning for patient's discharge home today. Patient was also experiencing anemia and was given one unit of packed red blood cells. Her hemoglobin has improved today. We're also trying to get a CPAP machine for the patient. The patient had one previously but has been unable to locate it. They tested the CPAP last night and patient did well with this device. Patient feels she is ready for discharge home. Patient has not had a bowel movement postoperatively. She does have a history of some constipation. She is not expressing any abdominal pain. She is passing lots of gas. We did discuss would like for her to have a bowel movement prior to discharge home. She has been on Senokot twice a day and milk of magnesia. If patient is cleared by multiple other medical providers, she'll be cleared for discharge home from an orthopedic standpoint. Patient also had evidence of acute kidney injury in her surgical intervention was delayed by a day. This has continued to improve postoperatively. Patient was cleared preoperatively for surgery by Dr. Hollingsworth. Patient currently denies any nausea, vomiting, fever, or chills. Patient is eating and voiding freely without difficulty. Patient may shower without dressing is intact over the surgical sites. Patient should avoid excessive bending, lifting, and twisting; no lifting greater than 10 pounds. Patient should avoid anti-inflammatory medication over the next 6 weeks postoperatively. MAPS has been reviewed on 02/05/2020, with an Overall Overdose Risk Score of 110. An "Opiod Start Talking" Form has been signed and placed in the patient's chart. A prescription has been written for [place] 5 mg/325 mg 1-2 tabs every 6 hours as needed for pain, dispensed #56. Avoid anti-inflammatory medications over the next 6 weeks postoperatively. Patient is also given a prescription for Senokot 1 tab twice a day as needed for constipation, dispensed #60. Patient may continue with antibiotics or other medications as prescribed by medicine, pulmonology, or infectious disease per their recommendations. Patient's past medical history includes diabetes mellitus type 2, history of DVT, hypertension, hyperlipidemia, seizure disorder, obesity, history of asthma, chronic anemia and acute renal failure. During this admission patient was also treated for anemia and acute renal failure with improvement. Physical Exam on day of discharge: Postoperative day #5 Patient is awake, alert, and oriented 3 Adequate chest excursion with inspiration and expiration; O2 nasal cannula Dressings over the surgical sites are clean and dry Dressings are removed during physical examination; no drainage from the surgical sites Tattoos over the thoracic and lumbar spines No pain with palpation of the surgical sites Neurovascularly intact bilaterally lower extremities No signs or symptoms of DVT; no calf pain; pneumatic cuffs intact bilateral lower extremities Abdomen soft nontender; no obvious distention Dorsiflexion, plantarflexion, and extensor hallucis longus positive sustained bilaterally Procedures: L4-5 minimally invasive posterior lateral decompression and fusion with transforaminal lumbar interbody fusion Patient Condition at Discharge: Stable Plan - Discharge Summary Discharge Rx Participant: Yes New Discharge Prescriptions: New Hydrocodone/Acetaminophen [[place] 5-325] 1 - 2 each PO Q6HR PRN #56 tab PRN Reason: Pain Sennosides-Docusate Sodium [Senokot-S] 1 tab PO BID PRN #60 tablet PRN Reason: Constipation No Action Prazosin HCl 2 mg PO HS Prazosin HCl 1 mg PO HS amLODIPine BESYLATE 5 mg PO DAILY OXcarbazepine [Trileptal] 300 mg PO BID Oxybutynin Chloride [Oxybutynin Chloride ER] 10 mg PO QAM hydroCHLOROthiazide [Hydrodiuril] 25 mg PO DAILY lisinopriL 40 mg PO DAILY Cariprazine HCl [Vraylar] 4.5 mg PO QAM Atorvastatin [Lipitor] 40 mg PO DAILY Albuterol Inhaler [Ventolin Hfa Inhaler] 2 puff INHALATION RT-Q6H PRN PRN Reason: Shortness Of Breath hydrOXYzine HCL [Atarax] 50 mg PO BID PRN PRN Reason: Anxiety Multivitamins, Thera [Multivitamin (formulary)] 1 tab PO DAILY Fluticasone Nasal [place] [Flonase Nasal [place]] 1 spray EA NOSTRIL DAILY Ondansetron Odt [Zofran Odt] 4 mg PO Q12HR PRN PRN Reason: Nausea Metoprolol Succinate (ER) [Toprol Xl] 50 mg PO DAILY Gabapentin [Neurontin] 400 mg PO TID Discharge Medication List Albuterol Inhaler [Ventolin Hfa Inhaler] 2 puff INHALATION RT-Q6H PRN 01/15/20 [History] Atorvastatin [Lipitor] 40 mg PO DAILY 01/15/20 [History] Cariprazine HCl [Vraylar] 4.5 mg PO QAM 01/15/20 [History] OXcarbazepine [Trileptal] 300 mg PO BID 01/15/20 [History] Oxybutynin Chloride [Oxybutynin Chloride ER] 10 mg PO QAM 01/15/20 [History] Prazosin HCl 1 mg PO HS 01/15/20 [History] Prazosin HCl 2 mg PO HS 01/15/20 [History] amLODIPine BESYLATE 5 mg PO DAILY 01/15/20 [History] hydroCHLOROthiazide [Hydrodiuril] 25 mg PO DAILY 01/15/20 [History] lisinopriL 40 mg PO DAILY 01/15/20 [History] hydrOXYzine HCL [Atarax] 50 mg PO BID PRN 01/29/20 [History] Fluticasone Nasal [place] [Flonase Nasal [place]] 1 spray EA NOSTRIL DAILY 02/02/20 [History] Gabapentin [Neurontin] 400 mg PO TID 02/02/20 [History] Metoprolol Succinate (ER) [Toprol Xl] 50 mg PO DAILY 02/02/20 [History] Multivitamins, Thera [Multivitamin (formulary)] 1 tab PO DAILY 02/02/20 [History] Ondansetron Odt [Zofran Odt] 4 mg PO Q12HR PRN 02/02/20 [History] Hydrocodone/Acetaminophen [[place] 5-325] 1 - 2 each PO Q6HR PRN #56 tab 02/05/20 [Rx] Sennosides-Docusate Sodium [Senokot-S] 1 tab PO BID PRN #60 tablet 02/09/20 [Rx] Follow up Appointment(s)/Referral(s): Dilshad Fontana [Primary Care Provider] - 1-2 days Nilo Montilla PAC [PHYSICIAN SENIOR TELECOMMUNICATIONS SPECIALIST] - 2 Weeks (Patient may follow-up with Nilo Montilla PA-C or Dr. Yoni Negron at [facility] in 2-3 weeks following discharge. ) Activity/Diet/Wound Care/Special Instructions: 1. Patient may shower without dressing is intact at this time 2. Patient should refrain from driving until at least after their first follow- up appointment in the office. 3. Patient should avoid excessive bending, twisting, and lifting; no lifting greater than 10 pounds 4. Take medications as prescribed 5. Do not soak in tub Discharge Disposition: HOME SELF-CARE
[2020-02-09] MEDS: FLUTICASONE 50MCG/SPRAY NASAL 16GM EA NOSTRIL SCH (10:11)
[2020-02-09] MEDS: amLODIPine 5 MG TAB PO SCH (10:12)
[2020-02-09] MEDS: ATORVASTATIN 40 MG TAB PO SCH (10:12)
[2020-02-09] MEDS: NON FORMULARY DRUG (Cariprazine Hcl [Vraylar] 4.5 MG Capsule) PO SCH (10:13)
[2020-02-09] MEDS: GABAPENTIN 400 MG CAP PO SCH (10:13)
[2020-02-09] MEDS: HEPARIN SODIUM,PORCINE 5,000 UNIT/ML 1 ML VIAL SQ SCH (10:13)
[2020-02-09] MEDS: METOPROLOL SUCCINATE (ER) 50 MG TAB.ER.24H PO SCH (10:14)
[2020-02-09] MEDS: PANTOPRAZOLE 40 MG/10 ML VIAL IVP SCH (10:14)
[2020-02-09] MEDS: MULTIVITAMINS, THERA 1 EACH TAB PO SCH (10:14)
[2020-02-09] MEDS: OXYBUTYNIN 10 MG TAB.ER.24 PO SCH (10:14)
[2020-02-09] MEDS: OXcarbazepine 300 MG TAB PO SCH (10:14)
[2020-02-09] MEDS: MAGNESIUM HYDROXIDE 2,400 MG/10 ML CUP PO PRN (10:17)
--- NOTE | 2020-02-09 10:46 | P.CNPUL ---
History of Present Illness Consult date: 02/09/20 Reason for consult: dyspnea, hypoxemia, pulmonary hypertension, obstructive sleep apnea Chief complaint: Shortness of breath History of present illness: This is a 44-year-old morbidly obese female with prior history of obstructive sleep apnea has been on therapy stopped several months ago of CPAP machine last study done several years ago in the remote past, patient was admitted earlier in February with UTI also has a spine problems underwent a spine surgery which went uneventfully, patient however postoperatively has been noted to be more short of breath hypoxic, computed tomography scan of the chest was negative for pulmonary embolism no obvious infiltrates are seen VQ scan is also low probability patient denies any chest pain denies any cough or sputum production today on room air saturation were 89% at rest and appears that her hypoxia is multifactorial due to component of obesity hypoventilation and chronic in nature also has sleep apnea with recent postop status overall patient is stable on 2 L oxygen she can go home on 2 L oxygen with CPAP machine loaner at home however home sleep study to be performed as outpatient followed by auto CPAP machine patient will also need echocardiogram to assess pulmonary hypertension as outpatient Review of Systems All systems: negative Past Medical History Past Medical History: Asthma, Diabetes Mellitus, Deep Vein Thrombosis (DVT), GERD/Reflux, Hearing Disorder / Deafness, Hyperlipidemia, Hypertension, Osteoarthritis (OA), Seizure Disorder, Sleep Apnea/CPAP/BIPAP Additional Past Medical History / Comment(s): SEIZURES CHILD, NONE SINCE AGE 15. NO TX FOR DM IN PAST 2-3 YEARS, SINCE WGT LOSS. BORDERLINE HTN, NO RX YET. HX LT ARM DVT X2, WAS ON BCP. "SEEM TO BLEED LONGER NOW." CTS IN MAGDA HANDS, WRISTS; TENDINITIS ARMS/LEGS; NT ARMS/LEGS. DECR HEARING RT EAR. USES CPAP. History of Any Multi-Drug Resistant Organisms: None Reported Past Surgical History: Bladder Surgery, Ear Surgery, Hysterectomy, Orthopedic Surgery Additional Past Surgical History / Comment(s): RT KNEE SURG. BLADDER SLING. BMT. CLEFT PALATE SURGERY. BB REMOVED FROM HEAD. Past Anesthesia/Blood Transfusion Reactions: Family History of Problems w/ Anesthesia, Motion Sickness Additional Past Anesthesia/Blood Transfusion Reaction / Comment(s): SISTERS HAVE PONV. Past Psychological History: Anxiety, Bipolar Additional Psychological History / Comment(s): HX ATTEMPTED SUICIDE, LAST TEEN. OFF RX FOR SURGERY, FEELS THE RX CAUSES HER INCR BLEEDING. Smoking Status: Never smoker Past Alcohol Use History: None Reported Past Drug Use History: None Reported - Past Family History Mother Family Medical History: Cancer, Deep Vein Thrombosis (DVT), Pulmonary Embolus Father Family Medical History: Deep Vein Thrombosis (DVT), Pulmonary Embolus Additional Family Medical History / Comment(s): RONNIE GERIGHS DISEASE. Medications and Allergies Home Medications Medication Instructions Recorded Confirmed Type Albuterol Inhaler [Ventolin Hfa 2 puff INHALATION RT-Q6H PRN 01/15/20 02/02/20 History Inhaler] Atorvastatin [Lipitor] 40 mg PO DAILY 01/15/20 02/02/20 History Cariprazine HCl [Vraylar] 4.5 mg PO QAM 01/15/20 02/02/20 History OXcarbazepine [Trileptal] 300 mg PO BID 01/15/20 02/02/20 History Oxybutynin Chloride [Oxybutynin 10 mg PO QAM 01/15/20 02/02/20 History Chloride ER] Prazosin HCl 1 mg PO HS 01/15/20 02/02/20 History Prazosin HCl 2 mg PO HS 01/15/20 02/02/20 History amLODIPine BESYLATE 5 mg PO DAILY 01/15/20 02/02/20 History hydrOXYzine HCL [Atarax] 50 mg PO BID PRN 01/29/20 02/02/20 History Fluticasone Nasal [place] [Flonase 1 spray EA NOSTRIL DAILY 02/02/20 02/02/20 History Nasal [place]] Gabapentin [Neurontin] 400 mg PO TID 02/02/20 02/02/20 History Metoprolol Succinate (ER) [Toprol 50 mg PO DAILY 02/02/20 02/02/20 History XL] Multivitamins, Thera [Multivitamin 1 tab PO DAILY 02/02/20 02/02/20 History (formulary)] Ondansetron Odt [Zofran ODT] 4 mg PO Q12HR PRN 02/02/20 02/02/20 History Hydrocodone/Acetaminophen [[place] 1 - 2 each PO Q6HR PRN #56 tab 02/05/20 Rx 5-325] Cefuroxime Axetil [Ceftin] 500 mg PO BID 3 Days #6 tab 02/09/20 Rx Magnesium Hydroxide [Milk of 2,400 mg PO DAILY PRN ml 02/09/20 Rx Magnesia Concentrate] Sennosides-Docusate Sodium 1 tab PO BID PRN #60 tablet 02/09/20 Rx [Senokot-S] Allergies Allergy/AdvReac Type Severity Reaction Status Date / Time aripiprazole [From Abilify] Allergy Swelling Verified 02/04/20 14:46 paroxetine HCl [From Paxil] Allergy Rash/Hives Verified 02/04/20 14:46 quetiapine [From Seroquel] Allergy Rash/Hives Verified 02/04/20 14:46 trazodone Allergy Unknown Verified 02/04/20 14:46 ziprasidone [From Geodon] Allergy Swelling Verified 02/04/20 14:46 Physical Exam Vitals: Vital Signs Temp Pulse Pulse Pulse Pulse Resp BP 02/09/20 08:10 88 02/09/20 08:00 88 02/09/20 02:00 98 F 94 22 102/66 02/08/20 21:30 92 02/08/20 21:17 92 02/08/20 19:59 98.3 F 99 20 141/85 02/08/20 18:38 104 H 02/08/20 16:06 103 H 117 H 02/08/20 14:12 97.6 F 93 20 122/83 02/08/20 13:17 96 02/08/20 13:07 96 02/08/20 12:43 89 02/08/20 12:38 89 Pulse Ox Pulse Ox Pulse Ox 02/09/20 08:10 02/09/20 08:00 02/09/20 02:00 94 L 02/08/20 21:30 02/08/20 21:17 02/08/20 19:59 87 L 02/08/20 18:38 94 L 02/08/20 16:06 93 L 86 L 02/08/20 14:12 94 L 02/08/20 13:17 02/08/20 13:07 02/08/20 12:43 92 L 02/08/20 12:38 87 L Intake and Output 02/08/20 02/09/20 02/09/20 22:59 06:59 14:59 Intake Total 590 Output Total 830 Balance -240 Intake: Intake, IV Titration 50 Amount cefTRIAXone 1 gm In 50 Sodium Chloride 0.9% 50 ml @ 100 mls/hr IVPB Q24HR [facility] Rx#:[id number] Oral 540 Output: Urine 800 Emesis 30 Other: Voiding Method Toilet # Voids 3 - Constitutional General appearance: morbidly obese, no acute distress - EENT Eyes: PERRLA Ears: bilateral: normal - Neck Neck: normal ROM Carotids: bilateral: upstroke normal Thyroid: negative: normal size - Respiratory Respiratory: bilateral: CTA - Cardiovascular Rhythm: regular Heart sounds: normal: S1, S2 - Integumentary Integumentary: normal turgor - Neurologic Neurologic: CNII-XII intact - Musculoskeletal Musculoskeletal: gait normal, generalized weakness, strength equal bilaterally - Psychiatric Psychiatric: A&O x's 3, appropriate affect, intact judgment & insight Results - Laboratory Findings CBC and BMP: 02/09/20 05:52 02/09/20 05:52 PT/INR, D-dimer PT 9.9 sec (9.0-12.0) 02/02/20 12:10 INR 0.9 (<1.2) 02/02/20 12:10 D-Dimer 1.94 mg/L FEU (<0.60) H 02/09/20 05:52 Abnormal lab findings: Abnormal Labs 02/02/20 02/02/20 02/02/20 12:10 12:10 12:10 RBC Hgb 11.0 L Hct Plt Count Lymphocytes # APTT D-Dimer Sodium Chloride 108 H Carbon Dioxide 21 L BUN 51 H Creatinine 2.16 H Glucose 136 H Calcium AST 51 H ALT 52 H C-Reactive Protein Procalcitonin Urine Appearance Cloudy H Urine Protein Trace H Urine Glucose (UA) 2+ H Ur Leukocyte Esterase Urine WBC Ur Squamous Epith Cells 8 H Urine Bacteria Rare H Hyaline Casts 4 H Urine Mucus Rare H Crossmatch 02/02/20 02/03/20 02/03/20 12:10 07:36 07:36 RBC 3.14 L Hgb 9.2 L D Hct 27.7 L Plt Count Lymphocytes # APTT 20.5 L D-Dimer Sodium Chloride Carbon Dioxide BUN 37 H Creatinine 1.60 H Glucose 113 H Calcium 8.3 L AST 39 H ALT 46 H C-Reactive Protein Procalcitonin Urine Appearance Urine Protein Urine Glucose (UA) Ur Leukocyte Esterase Urine WBC Ur Squamous Epith Cells Urine Bacteria Hyaline Casts Urine Mucus Crossmatch 02/04/20 02/04/20 02/05/20 08:51 08:51 08:56 RBC 3.10 L 2.63 L Hgb 9.3 L 7.9 L Hct 27.2 L 23.4 L Plt Count 140 L Lymphocytes # 0.8 L APTT D-Dimer Sodium Chloride 109 H Carbon Dioxide BUN 25 H Creatinine 1.35 H Glucose 118 H Calcium AST ALT C-Reactive Protein Procalcitonin Urine Appearance Urine Protein Urine Glucose (UA) Ur Leukocyte Esterase Urine WBC Ur Squamous Epith Cells Urine Bacteria Hyaline Casts Urine Mucus Crossmatch 02/05/20 02/05/20 02/06/20 08:56 23:04 07:11 RBC Hgb Hct Plt Count Lymphocytes # APTT D-Dimer Sodium 136 L 133 L Chloride 108 H Carbon Dioxide BUN 23 H 19 H Creatinine 1.57 H 1.37 H Glucose 126 H 148 H Calcium 8.1 L 7.8 L AST ALT C-Reactive Protein Procalcitonin Urine Appearance Cloudy H Urine Protein Trace H Urine Glucose (UA) 2+ H Ur Leukocyte Esterase Moderate H Urine WBC 18 H Ur Squamous Epith Cells 13 H Urine Bacteria Few H Hyaline Casts Urine Mucus Rare H Crossmatch 02/06/20 02/06/20 02/06/20 07:11 12:16 12:16 RBC 2.34 L Hgb 7.2 L Hct 20.5 L Plt Count 122 L Lymphocytes # APTT D-Dimer 1.81 H Sodium Chloride Carbon Dioxide BUN Creatinine Glucose Calcium AST ALT C-Reactive Protein 211.3 H Procalcitonin Urine Appearance Urine Protein Urine Glucose (UA) Ur Leukocyte Esterase Urine WBC Ur Squamous Epith Cells Urine Bacteria Hyaline Casts Urine Mucus Crossmatch 02/06/20 02/07/20 02/07/20 12:16 10:57 10:57 RBC 2.30 L Hgb 6.6 L* Hct 20.6 L Plt Count 130 L Lymphocytes # APTT D-Dimer Sodium 136 L Chloride Carbon Dioxide BUN Creatinine Glucose 155 H Calcium 8.2 L AST ALT C-Reactive Protein Procalcitonin 0.21 H Urine Appearance Urine Protein Urine Glucose (UA) Ur Leukocyte Esterase Urine WBC Ur Squamous Epith Cells Urine Bacteria Hyaline Casts Urine Mucus Crossmatch 02/07/20 02/08/20 02/08/20 12:16 06:59 06:59 RBC 2.39 L Hgb 7.1 L Hct 21.1 L Plt Count 144 L Lymphocytes # 0.9 L APTT D-Dimer Sodium Chloride Carbon Dioxide BUN Creatinine Glucose 117 H Calcium 8.1 L AST ALT C-Reactive Protein Procalcitonin Urine Appearance Urine Protein Urine Glucose (UA) Ur Leukocyte Esterase Urine WBC Ur Squamous Epith Cells Urine Bacteria Hyaline Casts Urine Mucus Crossmatch See Detail 02/09/20 02/09/20 02/09/20 05:52 05:52 05:52 RBC 2.49 L Hgb 7.4 L Hct 22.3 L Plt Count Lymphocytes # 0.9 L APTT D-Dimer 1.94 H Sodium Chloride Carbon Dioxide 31 H BUN Creatinine Glucose 115 H Calcium 8.2 L AST ALT C-Reactive Protein Procalcitonin Urine Appearance Urine Protein Urine Glucose (UA) Ur Leukocyte Esterase Urine WBC Ur Squamous Epith Cells Urine Bacteria Hyaline Casts Urine Mucus Crossmatch - Diagnostic Findings Chest x-ray: report reviewed, image reviewed CT scan - chest: report reviewed, image reviewed (Finding as above) Assessment and Plan Assessment: Acute hypoxic respiratory failure multifactorial processes including an associated with obesity white hypoventilation, sleep apnea, postoperative status, sepsis and UTI Obesity hypoventilation syndrome Sleep disorder breathing and sleep apnea Urinary tract infection Status post L4 5 lateral decompression with fusion Plan: Supplemental oxygen 2 L at rest and activity CPAP of 10 cm water patient to get a [employer] CPAP machine Home sleep testing as outpatient 2-D echo as outpatient for assessment of pulmonary hypertension Follow-up in office in one week Time with Patient: Greater than 30
[2020-02-09] MEDS: HYDROcodone/APAP 5-325MG 1 EACH TAB PO PRN (12:46)
[2020-02-09 13:59] VITALS: BP 127/64; PULSE 111; RESP 22; TEMP 98.6
--- NOTE | 2020-02-09 14:04 | P.DS ---
Providers Date of admission: 02/04/20 09:22 Expected date of discharge: 02/09/20 Attending physician: Richa Hollingsworth Consults: 02/02/20 13:05 Consult Physician Routine Consulting Provider: Elif Negron Consult Reason/Comments: Back pain, preoperative patient Do you want consulting provider notified?: Yes 02/06/20 06:53 Consult Physician Routine Consulting Provider: Loulou Miranda Consult Reason/Comments: Persistent fevers, post-surgical Do you want consulting provider notified?: Yes, Notify in am 02/08/20 17:03 Consult Physician Urgent Consulting Provider: Richard Bravo Consult Reason/Comments: shortness of breath, is to have asthma, apnea in the past Do you want consulting provider notified?: Yes Primary care physician: Dilshad Fontana Hospital Course: Final diagnosis Acute renal failure with prerenal acute tubular necrosis and dehydration, present on admission, improved Fever, possible urinary tract infection and possible pneumonia. Influenza and Covid 19 testing was negative Severe degenerative joint disease Status post fusion and decompression of the L4-5 Anemia, normocytic anemia of chronic disease Elevated AST, ALT, mildly History of asthma history of diabetes mellitus type 2 History of deep vein thrombosis GERD hypertension Hyperlipidemia Seizure disorder History of sleep apnea, needs repeat outpatient testing history of bladder surgery History of hysterectomy History of anxiety, bipolar Remote history of nicotine dependence Obesity with a body mass index of 51.2 Full code Discharge disposition Patient is being discharged in a stable condition with guarded prognosis to Home. Patient will follow-up with Dr. Fontana in the outpatient setting upon discharge. Patient will also follow-up with orthopedic surgery in 2 weeks along with pulmonary in the outpatient setting in 1 week. She is to continue with oral antibiotics in the form of Ceftin 500 mg twice daily for the next 3 days to complete the course. Patient needs to obtain CPAP machine that she has in storage. Patient will need repeat testing in the outpatient setting for sleep apnea. Total time taken is greater than 35 minutes. History of present illness This is a 44-year-old female who was recently admitted with elevated creatinine during preop testing as she was scheduled to undergo surgery with Dr. Negron in the outpatient setting and was being closely monitored. Patient was initiated on IV fluids and creatinine had improved and patient underwent lateral decompression and fusion of the L4/5 due to spondylolisthesis and spinal stenosis. patient tolerated procedure well although developed some shortness of breath and intermittent fever status post surgery. Chest x-ray showed no acute process with some atelectasis. She was maintained on 1-2 L of oxygen as she desats on room air with exertion. History of asthma with no acute exacerbation. Patient also has a history of sleep apnea and was using his CPAP in the past and has one at home although is currently locked in storage and she owes money to the storage people and is unable to obtain CPAP machine. Patient was seen and evaluated by pulmonary recommending continued CPAP use and outpatient follow-up in one week for repeat sleep apnea studies. Patient was also seen and evaluated by infectious disease for possible infection and fever and will continue on a short course of Ceftin 500 mg twice daily for the next 3 days to complete the course. Blood cultures and urine cultures negative. Patient has been afebrile. Patient instructed to continue using incentive spirometer at least 10 times every hour while awake and increased activity. Patient also had 2-D echo done which is currently pending and patient will follow-up outpatient to discuss results with Dr. Bravo. Currently no reports of chest pain, patient has shortness of breath with exertion, and no reports of palpitations. Patient is afebrile. No reports of nausea or vomiting and patient is tolerating diet. Patient will be going home today. On exam vital signs are stable. Temp is 98.6F, pulse is 111, respirations are 22, blood pressure is 127/64, oxygen saturation is 91% on room air. Cardio S1, S2 are muffled. Respiratory system shows diminished breath sounds at the bases with no wheezing or rhonchi noted. Abdomen is soft and obese, and nontender. Nervous system shows no focal deficits. Please refer to medication reconciliation sheet for a list of medications. Patient Condition at Discharge: Stable Plan - Discharge Summary Discharge Rx Participant: Yes New Discharge Prescriptions: New Hydrocodone/Acetaminophen [[place] 5-325] 1 - 2 each PO Q6HR PRN #56 tab PRN Reason: Pain Sennosides-Docusate Sodium [Senokot-S] 1 tab PO BID PRN #60 tablet PRN Reason: Constipation Cefuroxime Axetil [Ceftin] 500 mg PO BID 3 Days #6 tab Magnesium Hydroxide [Milk of Magnesia Concentrate] 2,400 mg PO DAILY PRN ml PRN Reason: Constipation Continue Prazosin HCl 2 mg PO HS Prazosin HCl 1 mg PO HS amLODIPine BESYLATE 5 mg PO DAILY OXcarbazepine [Trileptal] 300 mg PO BID Oxybutynin Chloride [Oxybutynin Chloride ER] 10 mg PO QAM Cariprazine HCl [Vraylar] 4.5 mg PO QAM Atorvastatin [Lipitor] 40 mg PO DAILY Albuterol Inhaler [Ventolin Hfa Inhaler] 2 puff INHALATION RT-Q6H PRN PRN Reason: Shortness Of Breath hydrOXYzine HCL [Atarax] 50 mg PO BID PRN PRN Reason: Anxiety Multivitamins, Thera [Multivitamin (formulary)] 1 tab PO DAILY Fluticasone Nasal [place] [Flonase Nasal [place]] 1 spray EA NOSTRIL DAILY Ondansetron Odt [Zofran ODT] 4 mg PO Q12HR PRN PRN Reason: Nausea Metoprolol Succinate (ER) [Toprol XL] 50 mg PO DAILY Gabapentin [Neurontin] 400 mg PO TID Discontinued hydroCHLOROthiazide [Hydrodiuril] 25 mg PO DAILY lisinopriL 40 mg PO DAILY Discharge Medication List Albuterol Inhaler [Ventolin Hfa Inhaler] 2 puff INHALATION RT-Q6H PRN 01/15/20 [History] Atorvastatin [Lipitor] 40 mg PO DAILY 01/15/20 [History] Cariprazine HCl [Vraylar] 4.5 mg PO QAM 01/15/20 [History] OXcarbazepine [Trileptal] 300 mg PO BID 01/15/20 [History] Oxybutynin Chloride [Oxybutynin Chloride ER] 10 mg PO QAM 01/15/20 [History] Prazosin HCl 1 mg PO HS 01/15/20 [History] Prazosin HCl 2 mg PO HS 01/15/20 [History] amLODIPine BESYLATE 5 mg PO DAILY 01/15/20 [History] hydrOXYzine HCL [Atarax] 50 mg PO BID PRN 01/29/20 [History] Fluticasone Nasal [place] [Flonase Nasal [place]] 1 spray EA NOSTRIL DAILY 02/02/20 [History] Gabapentin [Neurontin] 400 mg PO TID 02/02/20 [History] Metoprolol Succinate (ER) [Toprol XL] 50 mg PO DAILY 02/02/20 [History] Multivitamins, Thera [Multivitamin (formulary)] 1 tab PO DAILY 02/02/20 [History] Ondansetron Odt [Zofran ODT] 4 mg PO Q12HR PRN 02/02/20 [History] Hydrocodone/Acetaminophen [[place] 5-325] 1 - 2 each PO Q6HR PRN #56 tab 02/05/20 [Rx] Cefuroxime Axetil [Ceftin] 500 mg PO BID 3 Days #6 tab 02/09/20 [Rx] Magnesium Hydroxide [Milk of Magnesia Concentrate] 2,400 mg PO DAILY PRN ml 02/09/20 [Rx] Sennosides-Docusate Sodium [Senokot-S] 1 tab PO BID PRN #60 tablet 02/09/20 [Rx] Follow up Appointment(s)/Referral(s): Dilshad Fontana [Primary Care Provider] - 02/12/20 3:30 pm (Saturday) Nilo Montilla PAC [PHYSICIAN PATIENT ACCESS REGISTRAR] - 02/22/20 3:00 pm (Patient to follow-up with Nilo Montilla PA-C at [facility] on Saturday, February 22, 2020 at 3:00 pm. ) Richard Bravo MD [STAFF PHYSICIAN] - 1 Week (Please call Dr. Bravo to make your follow up appointment to be seen in one week.) Activity/Diet/Wound Care/Special Instructions: Patient has a CPAP machine in the outpatient setting and needs to restart using it Patient follow-up with pulmonary in the outpatient setting in 1 week 1. Patient may shower without dressing is intact at this time 2. Patient should refrain from driving until at least after their first follow- up appointment in the office. 3. Patient should avoid excessive bending, twisting, and lifting; no lifting greater than 10 pounds 4. Take medications as prescribed 5. Do not soak in tub Activity Limited until follow-up Follow-up with primary care provider upon discharge Activity with antibiotics for the next 3 days to complete the course Continue with incentive spirometer at least 10 times every hour while awake Follow-up with primary care provider and discuss sleep apnea with possible pulmonary outpatient testing Discharge Disposition: HOME SELF-CARE
--- NOTE | 2020-02-09 17:58 | ECHOF ---
Referral Reason:Shortness of breath MEASUREMENTS -------- HEIGHT: 152.4 cm WEIGHT: 126.6 kg BP: 102/66 RVIDd: 2.9 cm (< 3.3) IVSd: 1.3 cm (0.6 - 1.1) LVIDd: 4.3 cm (3.9 - 5.3) LVPWd: 1.2 cm (0.6 - 1.1) IVSs: 1.6 cm LVIDs: 2.9 cm LVPWs: 1.5 cm LA Diam: 3.4 cm (2.7 - 3.8) LAESV Index (A-L): 21.58 ml/m Ao Diam: 3.2 cm (2.0 - 3.7) AV Cusp: 2.2 cm (1.5 - 2.6) MV EXCURSION: 17.007 mm (> 18.000) MV EF SLOPE: 110 mm/s (70 - 150) EPSS: 0.3 cm MV E Moy: 1.33 m/s MV DecT: 139 ms MV A Moy: 1.32 m/s MV E/A Ratio: 1.01 RAP: 5.00 mmHg RVSP: 39.03 mmHg FINDINGS -------- Resting tachycardia (HR>100bpm). This was a technically adequate study. The left ventricular size is normal. There is mild concentric left ventricular hypertrophy. Overa ll left ventricular systolic function is normal with, an EF between 60 - 65 %. The right ventricle is normal in size. Normal LA size by volume 22+/-6 ml/m2. The right atrium is normal in size. Interatrial and interventricular septum intact. The aortic valve is trileaflet and appears structurally normal. There is trace mitral regurgitation. Mild tricuspid regurgitation present. There is mild pulmonary hypertension. The right ventricular systolic pressure, as measured by Doppler, is 39.03mmHg. Trace/mild (physiologic) pulmonic regurgitation. The aortic root size is normal. Normal inferior vena cava with normal inspiratory collapse consistent with estimated right atrial pre ssure of 5 mmHg. There is no pericardial effusion. CONCLUSIONS -------- 1. Resting tachycardia (HR>100bpm). 2. The left ventricular size is normal. 3. There is mild concentric left ventricular hypertrophy. 4. Overall left ventricular systolic function is normal with, an EF between 60 - 65 %. 5. There is trace mitral regurgitation. 6. Mild tricuspid regurgitation present. 7. There is mild pulmonary hypertension. 8. The right ventricular systolic pressure, as measured by Doppler, is 39.03mmHg. 9. Trace/mild (physiologic) pulmonic regurgitation. 10. There is no pericardial effusion. PROCESS CONTROL TECH: Cailin Galindo RDCS
[2020-02-09] MEDS ORDERED: PANTOPRAZOLE 40 MG TABLET PO SCH (21:00)
--- NOTE | 2020-02-09 21:39 | P.PN ---
Progress Note - Text Progress Note Date: 02/09/20 REASON FOR FOLLOWUP: Postoperative fever, possible UTI. INTERVAL HISTORY: The patient is afebrile. No fever in the last 48 hours. The patient is feeling better. She is mildly hypoxic and requiring oxygen. Denies having any chest pain, mild shortness of breath on exertion. Minimal cough. No abdominal pain and no pain to the lumbar spine surgical area. PHYSICAL EXAMINATION: Blood pressure 120/80 with a pulse of 93, temperature 97.6. She is 90% on room air. General description is a middle-aged female lying in bed in no distress. RESPIRATORY SYSTEM: Unlabored breathing. Clear to auscultation. HEART: S1, S2. Regular rate and rhythm. ABDOMEN: Soft. No tenderness. LABS: Cultures remain negative. DIAGNOSTIC IMPRESSION AND PLAN: Patient with a postoperative fever with concern about possible urinary tract infection or pneumonitis. V/Q scan was low probability for pulmonary embolism. The patient clinically responded to the Rocephin; to continue. Finish with a short course of oral Ceftin 500mg bid x 5 days and close outpatient followup.
--- NOTE | 2020-02-10 17:22 | CDI ---
Documentation Clarification Form Date: 02/10/2020 04:35:39 PM From: Lily Coates RN CCDS Admit Date: 02/04/2020 09:22:00 AM Patient Name: Genia Lopez Visit Number: [id number] Discharge Date: 02/09/2020 05:50:00 PM ATTENTION: The Clinical Documentation Specialists (CDI) and [facility] Coding Staff appreciate your assistance in clarifying documentation. Please respond to the clarification below the line at the bottom and electronically sign. The CDI & [facility] Coding staff will review the response and follow-up if needed. Please note: Queries are made part of the Legal Health Record. If you have any questions, please contact the author of this message via ITS. Dr. Rubina Cm Sepsis is documented in the Consult 02/[address] Bravo History/Risk Factors: 44-year-old female presented to [facility] ED on 02/01 Observation for abnormal preoperative labs. Admitted Inpatient for Laminectomy and decompression. Medical History: Asthma; DM; DJD and Seizures Clinical Indicators: 02/04 19:40 Temp 101.6 F Oral; 02/05 01:52 VSS: B/P 115/62; HR 102; Temp 101.5 F Oral; RR 22; SpO2 93% 1 L nasal cannula 02/05 Labs: Wbc 8.7 Blood cultures: 02/04 No growth after 96 hours 02/05 No growth after 96 hours 02/04 UA: Wbc 18; Urine bacteria 13, Leukocyte esterase moderate; 02/04 UA Culture: No growth Vitals signs on admission: Other Clinical Indicators: 02/07 ID Progress Note: Patient with a postoperative fever with concern about possible urinary tract infection or pneumonitis. V/Q scan was low probability for pulmonary embolism. The patient clinically responded to the Rocephin; to continue. Treatment: ID Consult: see above Antibiotics: 02/05 Rocephin Ivpb Daily; IV: 0.9Ns 20cc/Hr In your professional opinion, please clarify if Sepsis is: Sepsis ruled out Sepsis Other, please specify Unable to determine SIRS Criteria (2 or more of the following may indicate SIRS): -Temperature < 96.8F (36C) or > 101.0F (38.3C) -Heart Rate > 90 bpm -Respiratory Rate > 20 breaths/min or PaCO2 < 32 mmHg -White Blood Cell Count > 12,000 or < 4,000 cells/mm3 or > 10% bands -Lactate >2.0 mmol/L (>4.0 is equivalent to septic shock) (Last Revision: June 2017) No sepsis MTDD
== END 2020-02-09 17:50 | disposition home or self-care (01) | DRG 453 ==
LOC: EC 11:23 → 1SOBS 13:05 → 6PED 23:51 → OBSVTOIN 02-04 09:22 → 6PED 02-06 11:53
PROVIDERS: ADMIT Hospitalist; ATTEND Hospitalist
PROC: 0SG0071 Fusion of Lumbar Vertebral Joint with Autologous Tissue Substitute, Posterior Approach, Posterior Column, Open Approach (ICD-10-PCS; principal; 2020-02-04 08:20)
PROC: 0SG00AJ Fusion of Lumbar Vertebral Joint with Interbody Fusion Device, Posterior Approach, Anterior Column, Open Approach (ICD-10-PCS; principal; 2020-02-04 08:20)
PROC: 07DS0ZZ Extraction of Vertebral Bone Marrow, Open Approach (ICD-10-PCS; principal; 2020-02-04 08:20)
PROC: 0ST20ZZ Resection of Lumbar Vertebral Disc, Open Approach (ICD-10-PCS; principal; 2020-02-04 08:20)
PROC: 01NB0ZZ Release Lumbar Nerve, Open Approach (ICD-10-PCS; principal; 2020-02-04 08:20)
PROC: 30233N1 Transfusion of Nonautologous Red Blood Cells into Peripheral Vein, Percutaneous Approach (ICD-10-PCS; 2020-02-07)
PROC: 5A09357 Assistance with Respiratory Ventilation, Less than 24 Consecutive Hours, Continuous Positive Airway Pressure (ICD-10-PCS; 2020-02-08)
DX: M43.16 Spondylolisthesis, lumbar region (principal); N17.0 Acute kidney failure with tubular necrosis; J96.01 Acute respiratory failure with hypoxia; J18.9 Pneumonia, unspecified organism; E66.2 Morbid (severe) obesity with alveolar hypoventilation; Z68.43 Body mass index [BMI] 50.0-59.9, adult; N39.0 Urinary tract infection, site not specified; J98.11 Atelectasis; I27.20 Pulmonary hypertension, unspecified; D63.8 Anemia in other chronic diseases classified elsewhere; E11.9 Type 2 diabetes mellitus without complications; G40.909 Epilepsy, unspecified, not intractable, without status epilepticus; F31.9 Bipolar disorder, unspecified; I11.9 Hypertensive heart disease without heart failure; M48.061 Spinal stenosis, lumbar region without neurogenic claudication; M54.16 Radiculopathy, lumbar region; Z20.828 Contact with and (suspected) exposure to other viral communicable diseases; E86.0 Dehydration; E78.5 Hyperlipidemia, unspecified; K59.00 Constipation, unspecified; J45.909 Unspecified asthma, uncomplicated; K21.9 Gastro-esophageal reflux disease without esophagitis; G47.33 Obstructive sleep apnea (adult) (pediatric); M19.90 Unspecified osteoarthritis, unspecified site; H91.90 Unspecified hearing loss, unspecified ear; R74.01 Elevation of levels of liver transaminase levels; F41.9 Anxiety disorder, unspecified; Z79.899 Other long term (current) drug therapy; Z87.891 Personal history of nicotine dependence; Z86.718 Personal history of other venous thrombosis and embolism; Z87.39 Personal history of other diseases of the musculoskeletal system and connective tissue; Z87.42 Personal history of other diseases of the female genital tract; Z90.710 Acquired absence of both cervix and uterus; Z87.730 Personal history of (corrected) cleft lip and palate; Z91.5 Personal history of self-harm; Z98.890 Other specified postprocedural states; Z88.8 Allergy status to other drugs, medicaments and biological substances; Z83.2 Family history of diseases of the blood and blood-forming organs and certain disorders involving the immune mechanism; Z82.0 Family history of epilepsy and other diseases of the nervous system
CPT/HCPCS: 36415; 71045; 71250; 72100; 78582; 80048; 80053; 81001; 82550; 83615; 84145; 84484; 85025; 85379; 85610; 85730; 86140; 86850; 86900; 86901; 86920; 87040; 87086; 87449; 87502; 87635; 93005; 93306; 94640; 94660; 94760; 96360; 96361; 99284

== ENCOUNTER → 2020-11-23 | Outpatient (CLI) | payer MEDICARE ==
--- NOTE | 2020-11-24 11:31 | ECHOF ---
Referral Reason:cad MEASUREMENTS -------- HEIGHT: 152.4 cm WEIGHT: 131.5 kg BP: RVIDd: 2.5 cm (< 3.3) IVSd: 0.9 cm (0.6 - 1.1) LVIDd: 5.2 cm (3.9 - 5.3) LVPWd: 1.1 cm (0.6 - 1.1) IVSs: 1.6 cm LVIDs: 3.2 cm LVPWs: 1.6 cm LA Diam: 4.2 cm (2.7 - 3.8) Ao Diam: 3.2 cm (2.0 - 3.7) AV Cusp: 2.2 cm (1.5 - 2.6) LA Diam: 3.1 cm (2.7 - 3.8) MV EXCURSION: 21.866 mm (> 18.000) MV EF SLOPE: 72 mm/s (70 - 150) EPSS: 0.6 cm MV E Moy: 0.73 m/s MV DecT: 215 ms MV A Moy: 0.83 m/s MV E/A Ratio: 0.88 RAP: 5.00 mmHg RVSP: 18.74 mmHg FINDINGS -------- Sinus rhythm. This was a technically adequate study. Morbid Obesity LV size, wall thickness and systolic function are normal, with an EF greater than 55%. The left reed tricular size is normal. The right ventricle is normal in size. The left atrium is mildly dilated. The right atrial size is normal. The aortic valve is trileaflet, and appears structurally normal. No aortic stenosis or regurgitation. The mitral valve is normal. Mild mitral regurgitation is present. The tricuspid valve appears structurally normal. Mild tricuspid regurgitation present. Right vent ricular systolic pressure is normal at < 35 mmHg. The pulmonic valve was not well visualized. There is no pulmonic regurgitation present. The aortic root size is normal. Echo free space may represent effusion or a pericardial fat pad. CONCLUSIONS -------- 1. LV size, wall thickness and systolic function are normal, with an EF greater than 55%. 2. The left atrium is mildly dilated. 3. The aortic valve is trileaflet, and appears structurally normal. No aortic stenosis or regurgitati on. 4. Mild mitral regurgitation is present. 5. Mild tricuspid regurgitation present. TRAVERSE ROD ASSEMBLER: Rashmi Henning RDCS
== END | disposition home or self-care (01) ==
LOC: RADECHMAIN 11:16
PROVIDERS: ATTEND Student in an Organized Health Care Education/Training Program
DX: I08.1 Rheumatic disorders of both mitral and tricuspid valves (principal)
CPT/HCPCS: 93306

== ENCOUNTER 2022-09-29 01:56 | Emergency (ER) | payer MEDICARE ==
[2022-09-29 02:15] LABS: Glucose,Whole Blood 256 mg/dL (70-110)
[2022-09-29 02:20] VITALS: TEMP 98.1
[2022-09-29 02:35] VITALS: BP 145/79; PULSE 95; RESP 18
--- NOTE | 2022-09-29 03:07 | ED ---
Recheck HPI - General Chief Complaint: Recheck/Abnormal Lab/Rx Stated Complaint: High Blood Sugar Time Seen by Provider: 09/29/22 02:33 Source: patient, RN notes reviewed, old records reviewed Mode of arrival: EMS Limitations: no limitations - History of Present Illness Initial Comments: This is a 46-year-old female DF for evaluation. Patient since today for evaluation regards to abnormal lab values at home blood sugar. Patient is very concerned for elevated blood sugar at home. Patient did start steroids to bronchitis and was told that her blood sugar would be elevated but it is been higher than she was expecting. Patient presents for elevated blood sugar here in the ER. MD Complaint: abnormal lab (Elevated blood sugar) -: hour(s) Returns Today for: Called Because of Abnormal Lab/Test (Patient is taking home blood sugar at home) Symptoms Since Prior Visit: no new symptoms Associated Symptoms: none Treatments Prior to Arrival: other (0) - Related Data Home Medications Medication Instructions Recorded Confirmed Albuterol Inhaler [Ventolin Hfa 2 puff INHALATION RT-Q6H PRN 01/15/20 02/02/20 Inhaler] Atorvastatin [Lipitor] 40 mg PO DAILY 01/15/20 02/02/20 Cariprazine HCl [Vraylar] 4.5 mg PO QAM 01/15/20 02/02/20 OXcarbazepine [Trileptal] 300 mg PO BID 01/15/20 02/02/20 Oxybutynin Chloride [oxyBUTYnin 10 mg PO QAM 01/15/20 02/02/20 chloride ER] Prazosin HCl 1 mg PO HS 01/15/20 02/02/20 Prazosin HCl 2 mg PO HS 01/15/20 02/02/20 amLODIPine BESYLATE 5 mg PO DAILY 01/15/20 02/02/20 hydrOXYzine HCL [Atarax] 50 mg PO BID PRN 01/29/20 02/02/20 Fluticasone Nasal [place] [Flonase 1 spray EA NOSTRIL DAILY 02/02/20 02/02/20 Nasal [place]] Gabapentin [Neurontin] 400 mg PO TID 02/02/20 02/02/20 Metoprolol Succinate (ER) [Toprol 50 mg PO DAILY 02/02/20 02/02/20 XL] Multivitamins, Thera [Multivitamin 1 tab PO DAILY 02/02/20 02/02/20 (formulary)] Ondansetron Odt [Zofran ODT] 4 mg PO Q12HR PRN 02/02/20 02/02/20 Previous Rx's Medication Instructions Recorded Hydrocodone/Acetaminophen [[place] 1 - 2 each PO Q6HR PRN #56 tab 02/05/20 5-325] Magnesium Hydroxide [Milk of 2,400 mg PO DAILY PRN ml 02/09/20 Magnesia Concentrate] Sennosides-Docusate Sodium 1 tab PO BID PRN #60 tablet 02/09/20 [Senokot-S] cefUROXime axetiL [Ceftin] 500 mg PO BID 3 Days #6 tab 02/09/20 Allergies Allergy/AdvReac Type Severity Reaction Status Date / Time aripiprazole [From Abilify] Allergy Swelling Verified 09/29/22 02:14 paroxetine HCl [From Paxil] Allergy Rash/Hives Verified 09/29/22 02:14 quetiapine [From Seroquel] Allergy Rash/Hives Verified 09/29/22 02:14 trazodone Allergy Unknown Verified 09/29/22 02:14 ziprasidone [From Geodon] Allergy Swelling Verified 09/29/22 02:14 Review of Systems ROS Statement: Those systems with pertinent positive or pertinent negative responses have been documented in the HPI. ROS Other: All systems not noted in ROS Statement are negative. Past Medical History Past Medical History: Asthma, Diabetes Mellitus, Deep Vein Thrombosis (DVT), GERD/Reflux, Hearing Disorder / Deafness, Hyperlipidemia, Hypertension, Osteoarthritis (OA), Seizure Disorder, Sleep Apnea/CPAP/BIPAP Additional Past Medical History / Comment(s): SEIZURES CHILD, NONE SINCE AGE 15. NO TX FOR DM IN PAST 2-3 YEARS, SINCE WGT LOSS. BORDERLINE HTN, NO RX YET. HX LT ARM DVT X2, WAS ON BCP. "SEEM TO BLEED LONGER NOW." CTS IN MAGDA HANDS, WRISTS; TENDINITIS ARMS/LEGS; NT ARMS/LEGS. DECR HEARING RT EAR. USES CPAP. History of Any Multi-Drug Resistant Organisms: None Reported Past Surgical History: Bladder Surgery, Ear Surgery, Hysterectomy, Orthopedic Surgery Additional Past Surgical History / Comment(s): RT KNEE SURG. BLADDER SLING. BMT. CLEFT PALATE SURGERY. BB REMOVED FROM HEAD. Past Anesthesia/Blood Transfusion Reactions: Family History of Problems w/ Anesthesia, Motion Sickness Additional Past Anesthesia/Blood Transfusion Reaction / Comment(s): SISTERS HAVE PONV. Past Psychological History: Anxiety, Bipolar Smoking Status: Never smoker Past Alcohol Use History: None Reported Past Drug Use History: None Reported - Past Family History Mother Family Medical History: Cancer, Deep Vein Thrombosis (DVT), Pulmonary Embolus Father Family Medical History: Deep Vein Thrombosis (DVT), Pulmonary Embolus Additional Family Medical History / Comment(s): RONNIE GERIGHS DISEASE. General Exam Limitations: no limitations General appearance: alert, in no apparent distress Head exam: Present: atraumatic, normocephalic, normal inspection Eye exam: Present: normal appearance, PERRL, EOMI. Absent: scleral icterus, conjunctival injection, periorbital swelling ENT exam: Present: normal exam, mucous membranes moist Neck exam: Present: normal inspection. Absent: tenderness, meningismus, lymphadenopathy Respiratory exam: Present: normal lung sounds bilaterally. Absent: respiratory distress, wheezes, rales, rhonchi, stridor Cardiovascular Exam: Present: regular rate, normal rhythm, normal heart sounds. Absent: systolic murmur, diastolic murmur, rubs, gallop, clicks GI/Abdominal exam: Present: soft, normal bowel sounds. Absent: distended, tenderness, guarding, rebound, rigid Extremities exam: Present: normal inspection, full ROM, normal capillary refill. Absent: tenderness, pedal edema, joint swelling, calf tenderness Back exam: Present: normal inspection Neurological exam: Present: alert, oriented X3, CN II-XII intact Psychiatric exam: Present: normal affect, normal mood Skin exam: Present: warm, dry, intact, normal color. Absent: rash Course Vital Signs 09/29/22 09/29/22 02:14 02:35 Temperature 98.1 F Pulse Rate 95 Respiratory 18 Rate Blood Pressure 145/79 O2 Sat by Pulse 97 Oximetry - Reevaluation(s) Reevaluation #1: 09/29/22 03:05 Medical record is reviewed Reevaluation #2: 09/29/22 03:06 Patient remains asymptomatic Reevaluation #3: 09/29/22 03:06 Patient informed results and questions answered Reevaluation #4: 09/29/22 03:06 Was pt. sent in by a medical professional or institution ([facility] Murray, [employer], urgent care, hospital, or long-term...) When possible be specific @ -no Did you speak to anyone other than the patient for history (EMS, parent, family, police, friend...)? What history was obtained from this source @ -no Did you review nursing and triage notes (agree or disagree)? Why? @ -agree Are old charts reviewed (outside hosp., previous admission, EMS record, old EKG, old radiological studies, urgent care reports/EKG's, long-term records)? Report findings @ -yes Differential Diagnosis (chest pain, altered mental status, abdominal pain women, abdominal pain men, vaginal bleeding, weakness, fever, dyspnea, syncope, headache, dizziness, GI bleed, back pain, seizure, CVA, palpatations, mental health, musculoskeletal)? @ -prior EKG interpreted by me (3pts min.). @ -no X-rays interpreted by me (1pt min.). @ -no CT interpreted by me (1pt min.). @ -no U/S interpreted by me (1pt. min.). @ -no What testing was considered but not performed or refused? (CT, X-rays, U/S, labs)? Why? @ -none What meds were considered but not given or refused? Why? @ -none Did you discuss the management of the patient with other professionals (professionals i.e. [facility] ALBERTO Murray, [employer], lab, RT, psych nurse, social media coordinator, grades 9 thru 12 visiting teacher, teacher, investigation officer, leather case finisher)? Give summary @ -no Was smoking cessation discussed for >3mins.? @ -no Was critical care preformed (if so, how long)? @ -no Were there social determinants of health that impacted care today? How? (Homelessness, low income, unemployed, alcoholism, drug addiction, transportation, low edu. Level, literacy, decrease access to med. care, [facility], rehab)? @ -none Was there de-escalation of care discussed even if they declined (Discuss DNR or withdrawal of care, Hospice)? DNR status @ -no What co-morbidities impacted this encounter? (DM, HTN, Smoking, COPD, CAD, Cancer, CVA, ARF, Chemo, Hep., AIDS, mental health diagnosis, sleep apnea, morbid obesity)? @ -none Was patient admitted / discharged? Hospital course, mention meds given and route, prescriptions, significant lab abnormalities, going to OR and other pertinent info. @ - 46 female to the ER stay. Patient presents today for evaluation of some lightheadedness and dizziness elevated blood sugar. Blood sugar is not significantly elevated and patient is relatively symptomatic currently, patient is given blood sugar medication but because she is on steroids she has understand that blood sugars expected to be elevated while on the steroids. Patient will continue to increase water intake and can be discharged home Discharge Undiagnosed new problem with uncertain prognosis? @ -no Drug Therapy requiring intensive monitoring for toxicity (Heparin, Nitro, Insulin, Cardizem)? @ -no Were any procedures done? @ -no Diagnosis/symptom? @ -Hyperglycemia Acute, or Chronic, or Acute on Chronic? @ -Acute Uncomplicated (without systemic symptoms) or Complicated (systemic symptoms)? @ -Complicated Side effects of treatment? @ -no Exacerbation, Progression, or Severe Exacerbation? @ -exacerbation Poses a threat to life or bodily function? How? (Chest pain, [place], [place], pneumonia, PE, COPD, DKA, ARF, appy, cholecystitis, CVA, Diverticulitis, Homicidal, Suicidal, threat to staff... and all critical care pts) @ -no Medical Decision Making - Medical Decision Making 46 female to the ER stay. Patient presents today for evaluation of some lightheadedness and dizziness elevated blood sugar. Blood sugar is not significantly elevated and patient is relatively symptomatic currently, patient is given blood sugar medication but because she is on steroids she has understand that blood sugars expected to be elevated while on the steroids. Patient will continue to increase water intake and can be discharged home - Lab Data Lab Results 09/29/22 Range/Units 02:14 POC Glucose (mg/dL) 256 H (70-110) mg/dL POC Glu Dock Pumper ID Luis F Hooker Disposition Clinical Impression: Hyperglycemia Disposition: HOME SELF-CARE Condition: Good Instructions (If sedation given, give patient instructions): Diabetic Hyperglycemia (ED) Is patient prescribed a controlled substance at d/c from ED?: No Referrals: Dilshad Fontana [Primary Care Provider] - 1-2 days Time of Disposition: 03:05
== END 2022-09-29 03:09 | disposition home or self-care (01) ==
LOC: EC 01:56
DX: E11.65 Type 2 diabetes mellitus with hyperglycemia (principal); R42 Dizziness and giddiness; J45.909 Unspecified asthma, uncomplicated; K21.9 Gastro-esophageal reflux disease without esophagitis; I10 Essential (primary) hypertension; E78.5 Hyperlipidemia, unspecified; F41.9 Anxiety disorder, unspecified; F31.9 Bipolar disorder, unspecified; Z79.899 Other long term (current) drug therapy; Z88.8 Allergy status to other drugs, medicaments and biological substances; Z88.9 Allergy status to unspecified drugs, medicaments and biological substances
CPT/HCPCS: 36415; 99284

== ENCOUNTER 2023-02-19 03:11 | Emergency (ER) | payer MEDICARE ==
[2023-02-19 03:17] VITALS: BP 153/94; PULSE 98; RESP 20; TEMP 97.4
[2023-02-19] MEDS ORDERED: dexAMETHasone 4 MG TAB PO STA (03:32)
[2023-02-19 03:33] LABS: Glucose,Whole Blood 221 mg/dL (70-110)
--- NOTE | 2023-02-19 03:39 | ED ---
General Adult HPI - General Chief complaint: ENT Stated complaint: Ear Infection Time Seen by Provider: 02/19/23 03:20 Source: patient, family, RN notes reviewed, old records reviewed Mode of arrival: ambulatory Limitations: no limitations - History of Present Illness Initial comments: Patient is a 47-year-old female who presents with Department complaining of similar facial mild swelling to her ear. Was diagnosed with ear infection and placed on otic drops as well as oral Augmentin. This was done earlier today. Awoke this evening and found the side of her face was mildly swollen and presents for further evaluation. Denies any difficulty breathing or swallowing. Denies any mouth swelling. Denies any tongue swelling. Isolated just anterior to the left ear. Denies any posterior ear pain. Denies any discharge from the ear. Presents with concern for possible infection. was just started on the antibiotic drops. Does have a history of diabetes on oral pills. Presents for further evaluation. - Related Data Home Medications Medication Instructions Recorded Confirmed Albuterol Inhaler [Ventolin Hfa 2 puff INHALATION RT-Q6H PRN 01/15/20 02/02/20 Inhaler] Atorvastatin [Lipitor] 40 mg PO DAILY 01/15/20 02/02/20 Cariprazine HCl [Vraylar] 4.5 mg PO QAM 01/15/20 02/02/20 OXcarbazepine [Trileptal] 300 mg PO BID 01/15/20 02/02/20 Oxybutynin Chloride [oxyBUTYnin 10 mg PO QAM 01/15/20 02/02/20 chloride ER] Prazosin HCl 1 mg PO HS 01/15/20 02/02/20 Prazosin HCl 2 mg PO HS 01/15/20 02/02/20 amLODIPine BESYLATE 5 mg PO DAILY 01/15/20 02/02/20 hydrOXYzine HCL [Atarax] 50 mg PO BID PRN 01/29/20 02/02/20 Fluticasone Nasal [place] [Flonase 1 spray EA NOSTRIL DAILY 02/02/20 02/02/20 Nasal [place]] Gabapentin [Neurontin] 400 mg PO TID 02/02/20 02/02/20 Metoprolol Succinate (ER) [Toprol 50 mg PO DAILY 02/02/20 02/02/20 XL] Multivitamins, Thera [Multivitamin 1 tab PO DAILY 02/02/20 02/02/20 (formulary)] Ondansetron Odt [Zofran ODT] 4 mg PO Q12HR PRN 02/02/20 02/02/20 Previous Rx's Medication Instructions Recorded Hydrocodone/Acetaminophen [[place] 1 - 2 each PO Q6HR PRN #56 tab 02/05/20 5-325] Magnesium Hydroxide [Milk of 2,400 mg PO DAILY PRN ml 02/09/20 Magnesia Concentrate] Sennosides-Docusate Sodium 1 tab PO BID PRN #60 tablet 02/09/20 [Senokot-S] cefUROXime axetiL [Ceftin] 500 mg PO BID 3 Days #6 tab 02/09/20 Allergies Allergy/AdvReac Type Severity Reaction Status Date / Time aripiprazole [From Abilify] Allergy Swelling Verified 02/19/23 03:15 paroxetine HCl [From Paxil] Allergy Rash/Hives Verified 02/19/23 03:15 quetiapine [From Seroquel] Allergy Rash/Hives Verified 02/19/23 03:15 trazodone Allergy Unknown Verified 02/19/23 03:15 ziprasidone [From Geodon] Allergy Swelling Verified 02/19/23 03:15 Review of Systems ROS Statement: Those systems with pertinent positive or pertinent negative responses have been documented in the HPI. Review of Systems: CONST: Denies fever EYES: Denies blurry vision ENT: Endorses left-sided facial swelling C/V: Denies Chest pain RESP: Denies shortness of breath GI: Denies abdominal pain : Denies dysuria SKIN: Denies rash. MSK: Denies joint pain. NEURO: Denies headache ROS Other: All systems not noted in ROS Statement are negative. Past Medical History Past Medical History: Asthma, Diabetes Mellitus, Deep Vein Thrombosis (DVT), GERD/Reflux, Hearing Disorder / Deafness, Hyperlipidemia, Hypertension, Osteoarthritis (OA), Seizure Disorder, Sleep Apnea/CPAP/BIPAP Additional Past Medical History / Comment(s): SEIZURES CHILD, NONE SINCE AGE 15. NO TX FOR DM IN PAST 2-3 YEARS, SINCE WGT LOSS. BORDERLINE HTN, NO RX YET. HX LT ARM DVT X2, WAS ON BCP. "SEEM TO BLEED LONGER NOW." CTS IN MAGDA HANDS, WRISTS; TENDINITIS ARMS/LEGS; NT ARMS/LEGS. DECR HEARING RT EAR. USES CPAP. History of Any Multi-Drug Resistant Organisms: None Reported Past Surgical History: Bladder Surgery, Ear Surgery, Hysterectomy, Orthopedic Surgery Additional Past Surgical History / Comment(s): RT KNEE SURG. BLADDER SLING. BMT. CLEFT PALATE SURGERY. BB REMOVED FROM HEAD. Past Anesthesia/Blood Transfusion Reactions: Family History of Problems w/ Anesthesia, Motion Sickness Additional Past Anesthesia/Blood Transfusion Reaction / Comment(s): SISTERS HAVE PONV. Past Psychological History: Anxiety, Bipolar Smoking Status: Never smoker Past Alcohol Use History: None Reported Past Drug Use History: None Reported - Past Family History Mother Family Medical History: Cancer, Deep Vein Thrombosis (DVT), Pulmonary Embolus Father Family Medical History: Deep Vein Thrombosis (DVT), Pulmonary Embolus Additional Family Medical History / Comment(s): RONNIE GERIGHS DISEASE. General Exam - General Exam Comments Initial Comments: General: Appears in no acute distress. HEAD: Normal with no signs of head trauma. EYES: PERRLA, EOMI, conjunctiva normal, no discharge. Pupils are 3 mm equal bilaterally. ENT: Hearing grossly intact, normal oropharynx. No significant facial swelling appreciated. Very small amount of edema located just anterior to the left ear. No extension of the edema. No tenderness palpation of the tragus. No tenderness palpation of the pinna. No tenderness to palpation of the mastoid bone. Some erythema of the left tympanic membrane. No stridor. No tongue swelling. No posterior oropharyngeal swelling. RESPIRATORY: Clear breath sounds bilaterally. No wheezes, rales, or rhonchi. C/V: Regular rate and rhythm. S1 and S2 auscultated, no edema, peripheral pulses 2+ and intact throughout ABD: Abd is soft, nontender, nondistended EXT: Normal range of motion, no obvious deformity SKIN: No rashes or lesions observed on exposed skin. NEURO: Alert and oriented x 4. Cranial nerves II-XII intact. No focal sensory or strength deficits. Limitations: no limitations Course Vital Signs 02/19/23 03:12 Temperature 97.4 F L Pulse Rate 98 Respiratory 20 Rate Blood Pressure 153/94 O2 Sat by Pulse 97 Oximetry Medical Decision Making - Medical Decision Making Was pt. sent in by a medical professional or institution (, PA, HOME SECURITY ALARM INSTALLER, urgent care, hospital, or care home...) When possible be specific @ -No Did you speak to anyone other than the patient for history (EMS, parent, family, police, friend...)? What history was obtained from this source @ -No Did you review nursing and triage notes (agree or disagree)? Why? @ -I reviewed and agree with nursing and triage notes Were old charts reviewed (outside hosp., previous admission, EMS record, old EKG, old radiological studies, urgent care reports/EKG's, care home records)? Report findings @ -No old charts were reviewed Differential Diagnosis (chest pain, altered mental status, abdominal pain women, abdominal pain men, vaginal bleeding, weakness, fever, dyspnea, syncope, headache, dizziness, GI bleed, back pain, seizure, CVA, palpatations, mental health, musculoskeletal)? @ -Alfredito angina, mastoiditis, otitis media. Otitis externa, this list is not all-inclusive. EKG interpreted by me (3pts min.). @ -None done X-rays interpreted by me (1pt min.). @ -None done CT interpreted by me (1pt min.). @ -None done U/S interpreted by me (1pt. min.). @ -None done What testing was considered but not performed or refused? (CT, X-rays, U/S, labs)? Why? @ -None What meds were considered but not given or refused? Why? @ -None Did you discuss the management of the patient with other professionals (professionals i.e. , PA, HOME SECURITY ALARM INSTALLER, lab, RT, psych nurse, social media content specialist, zipper sewing machine operator, teacher, chief customer officer, window caser)? Give summary @ -No Was smoking cessation discussed for >3mins.? @ -No Was critical care preformed (if so, how long)? @ -No Were there social determinants of health that impacted care today? How? (Homelessness, low income, unemployed, alcoholism, drug addiction, transportation, low edu. Level, literacy, decrease access to med. care, halfway, rehab)? @ -No Was there de-escalation of care discussed even if they declined (Discuss DNR or withdrawal of care, Hospice)? DNR status @ -No What co-morbidities impacted this encounter? (DM, HTN, Smoking, COPD, CAD, Cance r, CVA, ARF, Chemo, Hep., AIDS, mental health diagnosis, sleep apnea, morbid obesity)? @ -None Was patient admitted / discharged? Hospital course, mention meds given and route, prescriptions, significant lab abnormalities, going to OR and other pertinent info. @ -Patient presents over concern for left-sided facial swelling. Exam is relatively unremarkable. Minimal amount of swelling just anterior to the left ear. Is currently on antibiotics for left ear infection. I did discuss with the patient that edema is minimal. She has no signs or symptoms concerning for mastoiditis or meningitis x-ray at this time. She is a diabetic and Accu-Chek, well-hydrated is not significantly elevated. She is no other complaints at this time. I recommend she continue antibiotics and we'll provide her with a dose of steroid for the minimal swelling at this time. She was in agreement with this plan. Strict return precautions discussed. Recommended following up with ENT and/or her PCP which she was in agreement with. Vital signs within acceptable limits. I instructed the patient to follow up with their PCP in the next 1-3 days. I explained that the patient should return to the emergency department if they experience any worsening symptoms. Strict return precautions were discussed with the patient. The patient expressed understanding of these instructions. I answered all questions that the patient had. The patient was discharged home in good condition with their prescriptions and follow up information. Undiagnosed new problem with uncertain prognosis? @ -No Drug Therapy requiring intensive monitoring for toxicity (Heparin, Nitro, Insulin, Cardizem)? @ -No Were any procedures done? @ -No Diagnosis/symptom? @ -Otitis media Acute, or Chronic, or Acute on Chronic? @ -Acute Uncomplicated (without systemic symptoms) or Complicated (systemic symptoms)? @ -uncomplicated Side effects of treatment? @ -No Exacerbation, Progression, or Severe Exacerbation? @ -No Poses a threat to life or bodily function? How? (Chest pain, [place], MA, pneumonia, PE, COPD, DKA, ARF, appy, cholecystitis, CVA, Diverticulitis, Homicidal, Suicidal, threat to staff... and all critical care pts) @ -No Disposition Clinical Impression: Otitis media Disposition: HOME SELF-CARE Condition: Good Is patient prescribed a controlled substance at d/c from ED?: No Referrals: Dilshad Fontana [Primary Care Provider] - 1-2 days Time of Disposition: 03:37
== END 2023-02-19 03:43 | disposition home or self-care (01) ==
LOC: EC 03:11
DX: H66.92 Otitis media, unspecified, left ear (principal); E11.9 Type 2 diabetes mellitus without complications; E78.5 Hyperlipidemia, unspecified; I10 Essential (primary) hypertension; J45.909 Unspecified asthma, uncomplicated; G47.30 Sleep apnea, unspecified; F41.9 Anxiety disorder, unspecified; F31.9 Bipolar disorder, unspecified; Z79.899 Other long term (current) drug therapy; Z88.5 Allergy status to narcotic agent; Z88.8 Allergy status to other drugs, medicaments and biological substances
CPT/HCPCS: 36415; 99283; J8540

== ENCOUNTER → 2024-06-22 | Outpatient (CLI) | payer MEDICARE ==
[2024-06-22 18:36] LABS: Basophils # (A) 0.05 X 10*3/uL (0.00-0.10); Basophils % (A) 0.6 %; Eosinophils # (A) 0.09 X 10*3/uL (0.04-0.35); Eosinophils % (A) 1.1 %; HCT 44.8 % (37.2-46.3); HGB 13.7 g/dL (12.0-15.0); Lymphocytes # (A) 1.93 X 10*3/uL (0.90-5.00); Lymphocytes % (A) 24.1 %; MCH 29.7 pg (27.0-32.0); MCHC 30.6 g/dL (32.0-37.0); Mean Platelet Volume 11.2 FL (9.5-12.2); Monocytes # (A) 0.48 X 10*3/uL (0.20-1.00); NRBC Per 100 WBC 0 X 10*3/uL (0.00-0.01); Neutrophils # (A) 5.42 X 10*3/uL (1.80-7.70); Neutrophils % (A) 67.6 %; Platelet Count 205 X 10*3/uL (140-440); RBC 4.62 X 10*6/uL (4.10-5.20); RDW 16.2 % (11.5-14.5); WBC 8.02 X 10*3/uL (4.50-10.00)
[2024-06-23 13:35] LABS: Alt. alternata IgE Class CLASS 0; Alternaria alternata IgE <0.10 kU/L (<0.10); Asperg. fumagatus IgE <0.10 kU/L (<0.10); Asperg. fumagatus IgE Class CLASS 0; Bermuda Grass IgE <0.10 kU/L (<0.10); Birch(Com.Silvr) IgE <0.10 kU/L (<0.10); Birch(Com.Silvr) IgE Class CLASS 0; Cat Epith & Dander IgE <0.10 kU/L (<0.10); Cat Epith & Dander IgE Class CLASS 0; Clad herbarum IgE <0.10 kU/L (<0.10); Clad herbarum IgE Class CLASS 0; Cockroach IgE <0.10 kU/L (<0.10); Cottonwood IgE <0.10 kU/L (<0.10); Dermato. Pteronyssinus Class CLASS 2; Dermato. Pteronyssinus IgE 0.99 kU/L (<0.10); Dermato. farinae IgE 0.89 kU/L (<0.10); Dermato. farinae IgE Class CLASS 2; Dog Dander IgE <0.10 kU/L (<0.10); Elm IgE <0.10 kU/L (<0.10); IgE (Allergen) 22.8 IU/mL (<114.0); Maple (Box Elder) IgE <0.10 kU/L (<0.10); Maple (Box Elder) IgE Class CLASS 0; Mountain Cedar IgE <0.10 kU/L (<0.10); Mountain Cedar IgE Class CLASS 0; Mouse Urine IgE Class CLASS 0; Mouse Urine Proteins,IgE <0.10 kU/L (<0.10); Nettle IgE <0.10 kU/L (<0.10); Nettle IgE Class CLASS 0; Oak IgE <0.10 kU/L (<0.10); Penicillium chrysogenum IgE <0.10 kU/L (<0.10); Penicillium chrysogenum IgE Cl CLASS 0; Rough Marshelder IgE <0.10 kU/L (<0.10); Rough Marshelder IgE Class CLASS 0; Timothy Grass IgE <0.10 kU/L (<0.10); Timothy Grass IgE Class CLASS 0; White Ash IgE Class CLASS 0
[2024-06-25 11:43] LABS: Alpha 1 Anti-Trypsin 115 mg/dL (90 - 200); Alpha-1-Antitrypsin Phenotype MS
[2024-06-30 10:35] LABS: Alternaria Alternata IgG <13.6 mcg/mL (<13.6); Aspergillus fumigatus IgG NOT DETECTED; Aureobasidium pullulans IgG <13.6 mcg/mL (<13.6); Cladosporium herbarium IgG 16.7 mcg/mL (<14.7); Phoma ssp. IgG <6.6 mcg/mL (<6.6); Saccaharopoly. rectivirgula NOT DETECTED
== END | disposition home or self-care (01) ==
LOC: LABWHC1 15:57
PROVIDERS: ATTEND Internal Medicine Pulmonary Disease
DX: J44.9 Chronic obstructive pulmonary disease, unspecified (principal); J45.909 Unspecified asthma, uncomplicated; R53.83 Other fatigue; R06.02 Shortness of breath; R05.9 Cough, unspecified
CPT/HCPCS: 36415; 82103; 82104; 82785; 85025; 86001; 86003; 86606; 86609

== ENCOUNTER → 2024-07-07 | Outpatient (CLI) | payer MEDICARE, OTHER ==
--- NOTE | 2024-07-07 21:05 | CT ---
EXAMINATION TYPE: CT chest wo con DATE OF EXAM: 07/07/2024 4:42 PM COMPARISON: None. CLINICAL INDICATION: Female, 48 years old with history of J45.909 UNSPECIFIED ASTHMA, UNCOMPLICATED, SEGUN SINCE COCHLEAR IMPLANT SX IN MAY, HTN, DIABETIC TECHNIQUE: Axial images were obtained at 5 mm thick sections. Reconstructed images are reviewed on [employer] computer in the coronal plane. Contrast used: mL of , (none if empty) Oral contrast used: (none if empty) CT DLP: 570.80 mGycm, Automated exposure control for dose reduction was used. FINDINGS: Small hypodensity may be in the lateral left lobe of the thyroid. Thyroid otherwise appears unremarka ble. No suspicious lung nodules or focal infiltrates are present. No enlarged mediastinal or hilar adenopathy is evident. The ascending aorta diameter at the level o f the main pulmonary artery is 2.7 cm. The main pulmonary artery diameter at the bifurcation is 2.7 cm. No significant coronary artery calcifications. Limited CT sections are obtained through the upper abdomen. Abdomen is essentially unremarkable. IMPRESSION: 1. No acute pulmonary process [facility], Workstation: [facility], 07/07/2024 9:03 PM
== END | disposition home or self-care (01) ==
LOC: RADCTMAIN 15:47
PROVIDERS: ATTEND Internal Medicine Pulmonary Disease
DX: J45.909 Unspecified asthma, uncomplicated (principal); F31.12 Bipolar disorder, current episode manic without psychotic features, moderate; K21.9 Gastro-esophageal reflux disease without esophagitis; E03.9 Hypothyroidism, unspecified; E11.9 Type 2 diabetes mellitus without complications; G47.33 Obstructive sleep apnea (adult) (pediatric)
CPT/HCPCS: 71250